=== PATIENT | male | born 1980 | race Caucasian/White ===

== ENCOUNTER 2020-08-17 17:46 | Emergency (ER) | payer SELFPAY ==
[2020-08-17] VITALS (7 sets, daily range): BP systolic 116–179; BP diastolic 28–128; PULSE 85–140; RESP 16–26; TEMP 36.9; O2SAT 93–100; BMI 22.7
[2020-08-17] MEDS: LORazepam 2 MG/ML VIAL IM (18:10)
[2020-08-17] MEDS: Haloperidol Lactate 5 MG/ML VIAL IM (18:10)
--- NOTE | 2020-08-17 18:28 | PC.NURSE ---
See paper documentation for restraint documentation.
--- NOTE | 2020-08-17 18:49 | ED.PSYCH ---
HPI - Psych General Chief Complaint: Psychiatric Symptoms <Mariya Mansfield NP - Last Filed: 08/18/20 02:02> Stated Complaint: SI <Mariya Mansfield NP - Last Filed: 08/18/20 02:02> Time Seen by Provider: 08/17/20 18:13 <Mariya Mansfield NP - Last Filed: 08/18/20 02:02> Source: patient and EMS <Mariya Mansfield NP - Last Filed: 08/18/20 02:02> Mode of arrival: EMS <Mariya Mansfield NP - Last Filed: 08/18/20 02:02> Limitations: altered mental status <Mariya Mansfield NP - Last Filed: 08/18/20 02:02> History of Present Illness HPI Narrative: 39-year-old male presents via EMS for suicidal ideation and alcohol intoxication. Patient is punching himself in the face, and requires immediate intervention upon arrival. Security called, assisted patient to hospital bed and was given 2 mg of Ativan and 5 mg of Haldol IM. Was placed in 4 point restraint for safety. Patient states that he does not want to live, wants to jump in front of a train, shoot himself in the face with a gun, or jump out in traffic on the highway. Patient would not disclose the reasons why he feels this way, and states that he drank lots of alcohol today. <Mariya Mansfield NP - Last Filed: 08/18/20 02:02> MD complaint: suicidal ideation and alcohol abuse <Mariya Mansfield NP - Last Filed: 08/18/20 02:02> Duration: constant <Mariya Mansfield NP - Last Filed: 08/18/20 02:02> History of same: Yes <Mariya Mansfield NP - Last Filed: 08/18/20 02:02> Relieving factors: none <Mariya Mansfield NP - Last Filed: 08/18/20 02:02> Exacerbating factors: alcohol <Mariya Mansfield NP - Last Filed: 08/18/20 02:02> Associated psychiatric symptoms: depression and suicidal ideation <Mariya Mansfield NP - Last Filed: 08/18/20 02:02> If self harm: self-inflicted trauma <Mariya Mansfield NP - Last Filed: 08/18/20 02:02> Related Data Allergies/Adverse Reactions: Allergies Allergy/AdvReac Type Severity Reaction Status Date / Time No Known Allergies Allergy Verified 08/17/20 18:21 <Mariya Mansfield NP - Last Filed: 08/18/20 02:02> Review of Systems Review of Systems: Yes Unobtainable due to mental status <Mariya Mansfield NP - Last Filed: 08/18/20 02:02> [facility], LAT[facility] Past Medical History Source: unable to obtain <Mariya Mansfield NP - Last Filed: 08/18/20 02:02> Social History Social History: Social History Alcohol intake: current Smoking Status: Unknown if ever smoked Use of substances other than those prescribed or required for medical reasons: No Advance Directives: No Advance Directives Information Provided: No <Mariya Mansfield NP - Last Filed: 08/18/20 02:02> Physical Exam Vital Signs: Vital Signs: Last Vital Signs Temp 98.2 F 08/18/20 07:42 Pulse 75 08/18/20 07:42 Resp 18 08/18/20 07:42 BP 145/72 H 08/18/20 07:42 Pulse Ox 96 08/18/20 07:42 Body Mass Index 22.7 <Mariya Mansfield NP - Last Filed: 08/18/20 02:02> Vital Signs: Last Vital Signs Temp 98.2 F 08/18/20 07:42 Pulse 75 08/18/20 07:42 Resp 18 08/18/20 07:42 BP 145/72 H 08/18/20 07:42 Pulse Ox 96 08/18/20 07:42 Body Mass Index 22.7 <Marizol Madison DO - Last Filed: 08/18/20 08:08> Appearance: Alert. Oriented X3. Severe distress. Eyes: Pupils equal, round and reactive to light. ENT: Pharynx normal. Neck: Normal inspection. Neck supple. CVS: Normal heart rate and rhythm. Pulses normal. Respiratory: No respiratory distress. Breath sounds normal. Abdomen: Soft and nontender. Skin: Skin warm and dry. Normal skin color. Normal skin turgor. Extremities: No lower extremity edema. Neuro: No motor deficit. No sensory deficit. <Mariya Mansfield NP - Last Filed: 08/18/20 02:02> Course Course Course Narrative: plan of care is to ensure patient's safety, once patient can be released from restraints physical exam will be completed. Patient is sleeping, arousable to touch and speech, even unlabored respirations, brisk capillary refill to all extremities. ETOH level is 316. [facility] consult pending for the morning. <Mariya Mansfield NP - Last Filed: 08/18/20 02:02> MDM - Psych Differential Diagnosis Differential diagnosis: Likely acute psychosis, suicidal ideation, bipolar disorder, depression, drug-induced psychotic disorder, acute anxiety, post-traumatic stress disorder, substance abuse, alcohol intoxication and mood disorder <Mariya Mansfield NP - Last Filed: 08/18/20 02:02> Restraints Face to Face Assessment: Face to Face Assessment: Current Situation: After assessment of the patient, a review of the pertinent medical record and a discussion with nursing staff, I feel the patient requires a restrain intervention. Reaction To: [] Medical Condition: [] Behavioral State: [] Continued Need: [] <Mariya Mansfield NP - Last Filed: 08/18/20 02:02> Medical Records Attestation: I reviewed the patient's medical records. <Mariya Mansfield NP - Last Filed: 08/18/20 02:02> Lab Data Attestation: I reviewed the patient's lab results. <Mariya Mansfield NP - Last Filed: 08/18/20 02:02> Labs: Lab Results 08/17/20 08/17/20 08/18/20 Range/Units 21:40 21:40 07:08 Salicylates < 5.0 L (15-30) mg/dL Urine Opiates Screen Not Detected (Not Detect) Acetaminophen < 1 (<30) mcg/mL Ur Barbiturates Screen Not Detected (Not Detect) Ur Phencyclidine Scrn Not Detected (Not Detect) Ur Amphetamines Screen Not Detected (Not Detect) U Benzodiazepines Scrn Not Detected (Not Detect) Urine Cocaine Screen Not Detected (Not Detect) U Marijuana (THC) Screen POSITIVE H (Not Detect) Ethyl Alcohol 316 H* mg/dL <Mariya Mansfield NP - Last Filed: 08/18/20 02:02> Lab Results 08/17/20 08/17/20 08/18/20 Range/Units 21:40 21:40 07:08 Salicylates < 5.0 L (15-30) mg/dL Urine Opiates Screen Not Detected (Not Detect) Acetaminophen < 1 (<30) mcg/mL Ur Barbiturates Screen Not Detected (Not Detect) Ur Phencyclidine Scrn Not Detected (Not Detect) Ur Amphetamines Screen Not Detected (Not Detect) U Benzodiazepines Scrn Not Detected (Not Detect) Urine Cocaine Screen Not Detected (Not Detect) U Marijuana (THC) Screen POSITIVE H (Not Detect) Ethyl Alcohol 316 H* mg/dL <Marizol Madison DO - Last Filed: 08/18/20 08:08> Discharge Plan Discharge Clinical Impression: Depression Qualifiers: Depression Type: major depressive disorder Major depression recurrence: recurrent Active/Remission status: currently active Major depression episode severity: severe Psychotic features: with psychotic features Qualified Code(s): F33.3 - Major depressive disorder, recurrent, severe with psychotic symptoms <Mariya Mansfield NP - Last Filed: 08/18/20 02:02>
[2020-08-17 22:12] LABS: Ethanol 316 mg/dL
[2020-08-17 22:16] LABS: Salicylate < 5.0 mg/dL (15-30)
[2020-08-17 23:41] LABS: Acetaminophen LAB < 1 mcg/mL (<30)
[2020-08-18] VITALS (8 sets, daily range): BP systolic 116–145; BP diastolic 72–101; PULSE 65–100; RESP 18–22; TEMP 36.6–37.1; O2SAT 94–96
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
--- NOTE | 2020-08-18 01:22 | PC.NURSE ---
[facility] HAS BEEN FAXED & CALLED.
[2020-08-18 07:49] LABS: Amphetamine Screen Urine Not Detected (Not Detect); Barbiturates, Urine Not Detected (Not Detect); Benzodiazepines Screen Urine Not Detected (Not Detect); Cannabinoid Screen Urine POSITIVE (Not Detect); Cocaine Screen Urine Not Detected (Not Detect); Opiate Screen Urine Not Detected (Not Detect); Phencyclidine Screen Urine Not Detected (Not Detect)
--- NOTE | 2020-08-18 09:25 | PC.NURSE ---
RESTING ON STRETCHER EQUAL UNLABORED BREATHING
--- NOTE | 2020-08-18 10:28 | PC.NURSE ---
PT MOVED TO [facility] 2 REPORT GIVEN TO YANIRA CARRENO
--- NOTE | 2020-08-18 10:38 | PC.NURSE ---
pt transferred from main ED- pt ambulatory, affect depressed, cooperatives w/ transfer. Pt reports continued depression and anxiety- denies si but admits to feeling overwhelmed. states he uses etoh daily, pt reporting initial symptoms of withdrawal..
--- NOTE | 2020-08-18 11:20 | PC.NURSE ---
n called to confirm receipt of fax. per n, a clinician will be in in early afternoon
[2020-08-18] MEDS: LORazepam 1 MG TABLET 2 MG PO ×2 (11:41→13:53)
--- NOTE | 2020-08-18 11:51 | PC.NURSE ---
pt resting, very tremulous- medicated w/ ativan as ordered.
--- NOTE | 2020-08-18 15:32 | PC.NURSE ---
Pt states he is ready for discharge, states he can be safe. Transport arranged by care team- pt will be returning home, he lives w/ with his fathjer.
--- NOTE | 2020-08-18 16:10 | PC.NURSE ---
[employer] called, pt given voucher. pt alert, gretel campbell, states he is safe for discharge. pt aware that cab will be transporting him back to [facility] where he lives. no concerns reported..
== END 2020-08-18 16:18 | disposition home or self-care (01) ==
PROVIDERS: Nurse Practitioner Family; Emergency Provider Emergency Medicine
DX: F33.3 Major depressive disorder, recurrent, severe with psychotic symptoms (principal); R45.851 Suicidal ideations; F10.129 Alcohol abuse with intoxication, unspecified; Y90.8 Blood alcohol level of 240 mg/100 ml or more
CPT/HCPCS: 80307; 80320; 99285; G0480; J2060

== ENCOUNTER 2020-09-08 11:20 | Inpatient (IN) | payer MEDICAID, SELFPAY ==
[2020-09-08 11:25] VITALS: BP 118/71; BP 129/67; PULSE 87; PULSE 89; RESP 18; TEMP 36.7; O2SAT 99; BMI 20.7
--- NOTE | 2020-09-08 11:28 | ED.CHESTPAIN ---
HPI - Chest Pain General Chief Complaint: Chest Pain <Fer Rosenbaum MD - Last Filed: 09/08/20 14:24> Stated Complaint: chest pain <Fer Rosenbaum MD - Last Filed: 09/08/20 14:24> Time Seen by Provider: 09/08/20 11:24 <Fer Rosenbaum MD - Last Filed: 09/08/20 14:24> Source: patient <Fer Rosenbaum MD - Last Filed: 09/08/20 14:24> Mode of arrival: EMS <Fer Rosenbaum MD - Last Filed: 09/08/20 14:24> Limitations: no limitations <Fer Rosenbaum MD - Last Filed: 09/08/20 14:24> History of Present Illness HPI narrative: Patient with chest pain, drinks everyday. Lightheaded, shortness of breath, did not pass out. Patient had prior workup and told he has acid reflux <Fer Rosenbaum MD - Last Filed: 09/08/20 14:24> MD complaint: chest pain <Fer Rosenbaum MD - Last Filed: 09/08/20 14:24> Onset (ago): hour(s) (3) <Fer Rosenbaum MD - Last Filed: 09/08/20 14:24> Timing of current episode: constant <Fer Rosenbaum MD - Last Filed: 09/08/20 14:24> Prior episodes: Yes <Fer Rosenbaum MD - Last Filed: 09/08/20 14:24> Onset: during rest <Fer Rosenbaum MD - Last Filed: 09/08/20 14:24> Pain location: left chest <Fer Rosenbaum MD - Last Filed: 09/08/20 14:24> Pain radiation: none <Fer Rosenbaum MD - Last Filed: 09/08/20 14:24> Severity: moderate <Fer Rosenbaum MD - Last Filed: 09/08/20 14:24> Quality: sharp <Fer Rosenbaum MD - Last Filed: 09/08/20 14:24> Relieving factors: nothing <Fer Rosenbaum MD - Last Filed: 09/08/20 14:24> Related Data Home Medications: Home Medications Medication Instructions Recorded Confirmed No Known Home Meds 09/08/20 09/08/20 <Fer Rosenbaum MD - Last Filed: 09/08/20 14:24> Allergies/Adverse Reactions: Allergies Allergy/AdvReac Type Severity Reaction Status Date / Time No Known Allergies Allergy Verified 08/17/20 18:21 <Fer Rosenbaum MD - Last Filed: 09/08/20 14:24> Review of Systems Constitutional: Constitutional: Reports no additional constitutional complaints <Fer Rosenbaum MD - Last Filed: 09/08/20 14:24> Eyes: Eyes: Reports no additional eye complaints <Fer Rosenbaum MD - Last Filed: 09/08/20 14:24> ENT: Denies dizziness <Fer Rosenbaum MD - Last Filed: 09/08/20 14:24> Cardiovascular: Cardiovascular: Reports no additional cardiovascular complaints <Fer Rosenbaum MD - Last Filed: 09/08/20 14:24> Respiratory: Respiratory: Reports as per HPI <Fer Rosenbaum MD - Last Filed: 09/08/20 14:24> Gastrointestinal: Gastrointestinal: Reports no additional gastrointestinal complaints <Fer Rosenbaum MD - Last Filed: 09/08/20 14:24> Musculoskeletal: Musculoskeletal: Reports no additional musculoskeletal complaints <Fer Rosenbaum MD - Last Filed: 09/08/20 14:24> Integumentary/Breasts: Skin/Breast: Denies rash <Fer Rosenbaum MD - Last Filed: 09/08/20 14:24> Neurologic: Reports system reviewed and no additional complaints, except as documented, Denies dizziness and Denies Sensory deficit (Neuro) <Fer Rosenbaum MD - Last Filed: 09/08/20 14:24> Psychiatric: Psychiatric: Denies anxiety <Fer Rosenbaum MD - Last Filed: 09/08/20 14:24> PMFSH Past Medical History Medical History: Medical History ETOH abuse GERD (gastroesophageal reflux disease) Neuropathy <Fer Rosenbaum MD - Last Filed: 09/08/20 14:24> Social History Social History: Social History Alcohol intake: current Smoking Status: Unknown if ever smoked Advance Directives: No Advance Directives Information Provided: No <Fer Rosenbaum MD - Last Filed: 09/08/20 14:24> Physical Exam Vital Signs: Vital Signs: Last Vital Signs Temp 98.1 F 09/08/20 11:25 Pulse 97 09/08/20 13:20 Resp 18 09/08/20 13:20 BP 116/70 09/08/20 13:20 Pulse Ox 95 09/08/20 13:20 Body Mass Index 20.7 <Fer Rosenbaum MD - Last Filed: 09/08/20 14:24> Vital Signs: Last Vital Signs Temp 98.1 F 09/08/20 11:25 Pulse 97 09/08/20 13:20 Resp 18 09/08/20 13:20 BP 116/70 09/08/20 13:20 Pulse Ox 95 09/08/20 13:20 Body Mass Index 20.7 <Savage Carvajal MD - Last Filed: 09/09/20 00:33> Const: Other: very thin male looking older than stated age <Fer Rosenbaum MD - Last Filed: 09/08/20 14:24> Nutritional Appearance: thin <Fer Rosenbaum MD - Last Filed: 09/08/20 14:24> Orientation/consciousness: oriented to person and patient oriented x3 <Fer Rosenbaum MD - Last Filed: 09/08/20 14:24> Limitations: no limitations <Fer Rosenbaum MD - Last Filed: 09/08/20 14:24> HENMT: Head: Yes normal to inspection <Fer Rosenbaum MD - Last Filed: 09/08/20 14:24> Ears: external ears normal <Fer Rosenbaum MD - Last Filed: 09/08/20 14:24> General nose exam: Normal external nose present <Fer Rosenbaum MD - Last Filed: 09/08/20 14:24> Mouth: Normal oral and palatal mucosa present and oropharynx normal <Fer Rosenbaum MD - Last Filed: 09/08/20 14:24> Throat: Yes posterior oropharynx normal <Fer Rosenbaum MD - Last Filed: 09/08/20 14:24> Eyes: General: appearance normal, both eyes and all related structures <Fer Rosenbaum MD - Last Filed: 09/08/20 14:24> Neck: Other: supple <Fer Rosenbaum MD - Last Filed: 09/08/20 14:24> Neck: Yes normal visual inspection <Fer Rosenbaum MD - Last Filed: 09/08/20 14:24> Chest: Chest palpation & inspection: normal inspection of the chest <Fer Rosenbaum MD - Last Filed: 09/08/20 14:24> Resp: Auscultation: clear to auscultation bilaterally <Fer Rosenbaum MD - Last Filed: 09/08/20 14:24> Cardio: Jugular venous distension: no JVD <Fer Rosenbaum MD - Last Filed: 09/08/20 14:24> Rate: regular rate <Fer Rosenbaum MD - Last Filed: 09/08/20 14:24> Rhythm: regular rhythm <Fer Rosenbaum MD - Last Filed: 09/08/20 14:24> Heart sounds: S1 normal heart sound present and S2 normal heart sound present <Fer Rosenbaum MD - Last Filed: 09/08/20 14:24> GI: Inspection: Yes normal to inspection <Fer Rosenbaum MD - Last Filed: 09/08/20 14:24> Palpation (GI): Soft to palpation, nontender and No hepatosplenomegaly present <Fer Rosenbaum MD - Last Filed: 09/08/20 14:24> Auscultation: normal bowel sounds <Fer Rosenbaum MD - Last Filed: 09/08/20 14:24> : General: Yes no CVA tenderness <Fer Rosenbaum MD - Last Filed: 09/08/20 14:24> Back/Spine/Pelvis: Back: no CVA tenderness <Fer Rosenbaum MD - Last Filed: 09/08/20 14:24> Skin: General skin exam: no rashes or lesions noted <Fer Rosenbaum MD - Last Filed: 09/08/20 14:24> Neuro: General: oriented to person and patient oriented x3 <Fer Rosenbaum MD - Last Filed: 09/08/20 14:24> Cranial nerves: Yes CN's II-XII intact bilaterally <Fer Rosenbaum MD - Last Filed: 09/08/20 14:24> Motor exam (neuro): 5/5 motor strength present throughout <Fer Rosenbaum MD - Last Filed: 09/08/20 14:24> Sensory Exam: No Sensory deficit (Neuro) <Fer Rosenbaum MD - Last Filed: 09/08/20 14:24> Extrem: General: Yes normal to inspection <Fer Rosenbaum MD - Last Filed: 09/08/20 14:24> Psych: Appearance: grossly normal <Fer Rosenbaum MD - Last Filed: 09/08/20 14:24> Course Course Course Narrative: patient states that he is suicidal <Fer Rosenbaum MD - Last Filed: 09/08/20 14:24> patient seen by crisis will be admitted to for depression <Savage Carvajal MD - Last Filed: 09/09/20 00:33> Reevaluation(s) Reevaluation #1: patient now agitated and starting to try and leave, will sedate <Fer Rosenbaum MD - Last Filed: 09/08/20 14:24> Reevaluation #2: medically cleared no evidence of cardiac event <Fer Rosenbaum MD - Last Filed: 09/08/20 14:24> MDM - Chest Pain Lab Data Result diagrams: : 09/08/20 11:45 09/08/20 11:45 <Fer Rosenbaum MD - Last Filed: 09/08/20 14:24> Labs: Lab Results 09/08/20 09/08/20 09/08/20 Range/Units 11:45 11:45 11:45 WBC 7.8 (4.8-10.8) X10*3/uL RBC 3.31 L (4.60-5.80) X10*6/uL Hgb 12.7 L (14.0-18.0) g/dl Hct 36.8 L (42-52) % MCV 111.2 H (80-98) fL MCH 38.4 H (27.0-33.0) pg MCHC 34.5 (31.0-36.0) g/dl RDW 12.4 (11.0-16.0) % Plt Count 56 L (160-400) X10*3/uL MPV 11.1 (9.4-12.4) fL Immature Gran % (Auto) 0.4 (0.0-0.4) % Neut % (Auto) 58.6 (45-73) % Lymph % (Auto) 29.8 (20-40) % [place] % (Auto) 10.2 (2-11) % Eos % (Auto) 0.4 (0-4) % Baso % (Auto) 0.6 (0-2) % Lymph # (Auto) 2.3 (1.2-4.9) X10*3/uL [place] # (Auto) 0.8 (0.1-1.2) X10*3/uL Eos # (Auto) 0.0 (0.0-0.4) X10*3/uL Baso # (Auto) 0.1 (0.0-0.2) X10*3/uL Abs Immat Gran (auto) 0.03 (0.00-0.03) X10*3/uL Absolute Neuts (auto) 4.6 (2.0-8.3) X10*3/uL Absolute Nucleated RBC 0.000 (0.0-0.012) X10*3/uL Nucleated RBC % (auto) 0.0 (0.0-0.2) /100WBC Smear Tech's Comments Not Reportable Sodium 140 (135-145) mmol/L Potassium 3.9 (3.3-5.1) mmol/l Chloride 99 (96-108) mmol/L Carbon Dioxide 21 L (22-29) mmol/L Anion Gap 24 H (12-20) BUN 11 (9-16) mg/dL Creatinine 0.81 (0.5-1.4) mg/dL Estim Creat Clear Calc 111.6 Estimated GFR > 60 Random Glucose 75 (60-115) mg/dL Calcium 9.1 (8.4-10.2) mg/dL Troponin I High Sens < 3.5 (<3.5-35.0) ng/L Urine Opiates Screen Ur Barbiturates Screen Ur Phencyclidine Scrn Ur Amphetamines Screen U Benzodiazepines Scrn Urine Cocaine Screen U Marijuana (THC) Screen COVID-19 (MUSHTAQ) (Negative) COVID-19 Clin Com 09/08/20 09/08/20 09/08/20 Range/Units 20:02 20:03 22:15 WBC (4.8-10.8) X10*3/uL RBC (4.60-5.80) X10*6/uL Hgb (14.0-18.0) g/dl Hct (42-52) % MCV (80-98) fL MCH (27.0-33.0) pg MCHC (31.0-36.0) g/dl RDW (11.0-16.0) % Plt Count (160-400) X10*3/uL MPV (9.4-12.4) fL Immature Gran % (Auto) (0.0-0.4) % Neut % (Auto) (45-73) % Lymph % (Auto) (20-40) % [place] % (Auto) (2-11) % Eos % (Auto) (0-4) % Baso % (Auto) (0-2) % Lymph # (Auto) (1.2-4.9) X10*3/uL [place] # (Auto) (0.1-1.2) X10*3/uL Eos # (Auto) (0.0-0.4) X10*3/uL Baso # (Auto) (0.0-0.2) X10*3/uL Abs Immat Gran (auto) (0.00-0.03) X10*3/uL Absolute Neuts (auto) (2.0-8.3) X10*3/uL Absolute Nucleated RBC (0.0-0.012) X10*3/uL Nucleated RBC % (auto) (0.0-0.2) /100WBC Smear Tech's Comments Sodium (135-145) mmol/L Potassium (3.3-5.1) mmol/l Chloride (96-108) mmol/L Carbon Dioxide (22-29) mmol/L Anion Gap (12-20) BUN (9-16) mg/dL Creatinine (0.5-1.4) mg/dL Estim Creat Clear Calc Estimated GFR Random Glucose (60-115) mg/dL Calcium (8.4-10.2) mg/dL Troponin I High Sens (<3.5-35.0) ng/L Urine Opiates Screen Cancelled Not Detected Ur Barbiturates Screen Cancelled Not Detected Ur Phencyclidine Scrn Cancelled Not Detected Ur Amphetamines Screen Cancelled Not Detected U Benzodiazepines Scrn Cancelled Not Detected Urine Cocaine Screen Cancelled Not Detected U Marijuana (THC) Screen Cancelled POSITIVE H COVID-19 (MUSHTAQ) Negative (Negative) COVID-19 Clin Com See Note <Fer Rosenbaum MD - Last Filed: 09/08/20 14:24> Lab Results 09/08/20 09/08/20 09/08/20 Range/Units 11:45 11:45 11:45 WBC 7.8 (4.8-10.8) X10*3/uL RBC 3.31 L (4.60-5.80) X10*6/uL Hgb 12.7 L (14.0-18.0) g/dl Hct 36.8 L (42-52) % MCV 111.2 H (80-98) fL MCH 38.4 H (27.0-33.0) pg MCHC 34.5 (31.0-36.0) g/dl RDW 12.4 (11.0-16.0) % Plt Count 56 L (160-400) X10*3/uL MPV 11.1 (9.4-12.4) fL Immature Gran % (Auto) 0.4 (0.0-0.4) % Neut % (Auto) 58.6 (45-73) % Lymph % (Auto) 29.8 (20-40) % [place] % (Auto) 10.2 (2-11) % Eos % (Auto) 0.4 (0-4) % Baso % (Auto) 0.6 (0-2) % Lymph # (Auto) 2.3 (1.2-4.9) X10*3/uL [place] # (Auto) 0.8 (0.1-1.2) X10*3/uL Eos # (Auto) 0.0 (0.0-0.4) X10*3/uL Baso # (Auto) 0.1 (0.0-0.2) X10*3/uL Abs Immat Gran (auto) 0.03 (0.00-0.03) X10*3/uL Absolute Neuts (auto) 4.6 (2.0-8.3) X10*3/uL Absolute Nucleated RBC 0.000 (0.0-0.012) X10*3/uL Nucleated RBC % (auto) 0.0 (0.0-0.2) /100WBC Smear Tech's Comments Not Reportable Sodium 140 (135-145) mmol/L Potassium 3.9 (3.3-5.1) mmol/l Chloride 99 (96-108) mmol/L Carbon Dioxide 21 L (22-29) mmol/L Anion Gap 24 H (12-20) BUN 11 (9-16) mg/dL Creatinine 0.81 (0.5-1.4) mg/dL Estim Creat Clear Calc 111.6 Estimated GFR > 60 Random Glucose 75 (60-115) mg/dL Calcium 9.1 (8.4-10.2) mg/dL Troponin I High Sens < 3.5 (<3.5-35.0) ng/L Urine Opiates Screen Ur Barbiturates Screen Ur Phencyclidine Scrn Ur Amphetamines Screen U Benzodiazepines Scrn Urine Cocaine Screen U Marijuana (THC) Screen COVID-19 (MUSHTAQ) (Negative) COVID-19 Clin Com 09/08/20 09/08/20 09/08/20 Range/Units 20:02 20:03 22:15 WBC (4.8-10.8) X10*3/uL RBC (4.60-5.80) X10*6/uL Hgb (14.0-18.0) g/dl Hct (42-52) % MCV (80-98) fL MCH (27.0-33.0) pg MCHC (31.0-36.0) g/dl RDW (11.0-16.0) % Plt Count (160-400) X10*3/uL MPV (9.4-12.4) fL Immature Gran % (Auto) (0.0-0.4) % Neut % (Auto) (45-73) % Lymph % (Auto) (20-40) % [place] % (Auto) (2-11) % Eos % (Auto) (0-4) % Baso % (Auto) (0-2) % Lymph # (Auto) (1.2-4.9) X10*3/uL [place] # (Auto) (0.1-1.2) X10*3/uL Eos # (Auto) (0.0-0.4) X10*3/uL Baso # (Auto) (0.0-0.2) X10*3/uL Abs Immat Gran (auto) (0.00-0.03) X10*3/uL Absolute Neuts (auto) (2.0-8.3) X10*3/uL Absolute Nucleated RBC (0.0-0.012) X10*3/uL Nucleated RBC % (auto) (0.0-0.2) /100WBC Smear Tech's Comments Sodium (135-145) mmol/L Potassium (3.3-5.1) mmol/l Chloride (96-108) mmol/L Carbon Dioxide (22-29) mmol/L Anion Gap (12-20) BUN (9-16) mg/dL Creatinine (0.5-1.4) mg/dL Estim Creat Clear Calc Estimated GFR Random Glucose (60-115) mg/dL Calcium (8.4-10.2) mg/dL Troponin I High Sens (<3.5-35.0) ng/L Urine Opiates Screen Cancelled Not Detected Ur Barbiturates Screen Cancelled Not Detected Ur Phencyclidine Scrn Cancelled Not Detected Ur Amphetamines Screen Cancelled Not Detected U Benzodiazepines Scrn Cancelled Not Detected Urine Cocaine Screen Cancelled Not Detected U Marijuana (THC) Screen Cancelled POSITIVE H COVID-19 (MUSHTAQ) Negative (Negative) COVID-19 Clin Com See Note <Savage Carvajal MD - Last Filed: 09/09/20 00:33> Discharge Plan Discharge Clinical Impression: Depression Qualifiers: Depression Type: major depressive disorder Major depression recurrence: recurrent Active/Remission status: currently active Major depression episode severity: moderate Qualified Code(s): F33.1 - Major depressive disorder, recurrent, moderate <Fer Rosenbaum MD - Last Filed: 09/08/20 14:24> Patient Disposition: Admitted As Inpatient <Fer Rosenbaum MD - Last Filed: 09/08/20 14:24>
--- NOTE | 2020-09-08 11:32 | ECG_ITS ---
Test Reason : CHEST TIGHTNESS Blood Pressure : / mmHG Vent. Rate : 079 BPM Atrial Rate : 079 BPM P-R Int : 126 ms QRS Dur : 090 ms QT Int : 406 ms P-R-T Axes : 066 084 056 degrees QTc Int : 465 ms Normal sinus rhythm Normal ECG No previous ECGs available Referred By: Fer Rosenbaum Electronically Signed By:DIAMANTE BUCKNER MD
--- NOTE | 2020-09-08 11:36 | XR_ITS ---
EXAMINATION: XR CHEST CLINICAL INFORMATION: Chest pain. COMPARISON: None TECHNIQUE: Frontal view of the chest was obtained. FINDINGS: No significant abnormality is noted involving the heart, lungs, mediastinum, bony thorax or soft tissues. XR/XR chest 1V IMPRESSION: Unremarkable chest exam.
[2020-09-08] MEDS: Lidocaine HCl Viscous 2 % 15 ML SOLUTION MUCOUS MEM (11:49)
[2020-09-08] MEDS: Magnesium Hydrox/Alum Hydrox 30 ML ORAL.SUSP PO (11:49)
[2020-09-08] MEDS: Ketorolac Tromethamine 30 MG/ML VIAL IVPUSH (11:50)
[2020-09-08] MEDS: PHENobarb/Hyoscy/Atropine/Scop 10 ML ELIXIR PO (11:50)
[2020-09-08 11:56] LABS: Eosinophils Percent Auto 0.4 % (0-4); Imm Gran Abs Auto 0.03 X10*3/uL (0.00-0.03); Imm Gran Pct Auto 0.4 % (0.0-0.4); MANUAL DIFF FLAG SCAN; Neutrophils Percent Auto 58.6 % (45-73); PLT CLUMP 1; Red Cell Distribution Width 12.4 % (11.0-16.0); SCAN SMEAR FLAG 1
[2020-09-08 11:58] LABS: Basophils Absolute Auto 0.1 X10*3/uL (0.0-0.2); Basophils Percent Auto 0.6 % (0-2); Hematocrit 36.8 % (42-52); Hemoglobin 12.7 g/dl (14.0-18.0); Lymphocytes Absolute Auto 2.3 X10*3/uL (1.2-4.9); Lymphocytes Percent Auto 29.8 % (20-40); Mean Corpuscular HGB Conc 34.5 g/dl (31.0-36.0); Mean Corpuscular Hemoglobin 38.4 pg (27.0-33.0); Mean Platelet Volume 11.1 fL (9.4-12.4); Monocytes Absolute Auto 0.8 X10*3/uL (0.1-1.2); Monocytes Percent Auto 10.2 % (2-11); Neutrophils Absolute Auto 4.6 X10*3/uL (2.0-8.3); Red Blood Count 3.31 X10*6/uL (4.60-5.80); White Blood Count 7.8 X10*3/uL (4.8-10.8)
[2020-09-08 12:01] LABS: Mean Corpuscular Volume 111.2 fL (80-98); Platelet Count 56 X10*3/uL (160-400)
[2020-09-08 12:28] LABS: Troponin-I High Sensitivity < 3.5 ng/L (<3.5-35.0)
[2020-09-08 12:32] LABS: Blood Urea Nitrogen 11 mg/dL (9-16); Calcium 9.1 mg/dL (8.4-10.2); Creatinine Clr Calc Pharmacy 111.6; Estimated Glomerular Filt Rate > 60; Glucose Random 75 mg/dL (60-115)
[2020-09-08 12:40] LABS: Anion Gap 24 (12-20); Carbon Dioxide 21 mmol/L (22-29); Chloride 99 mmol/L (96-108); Potassium 3.9 mmol/l (3.3-5.1); Sodium 140 mmol/L (135-145)
[2020-09-08] MEDS: Haloperidol Lactate 5 MG/ML VIAL IVPUSH (12:43)
[2020-09-08] MEDS: LORazepam 2 MG/ML VIAL IVPUSH (12:43)
[2020-09-08 12:50] VITALS: RESP 18
[2020-09-08 13:05] VITALS: BP 130/82; PULSE 98; RESP 18; O2SAT 94
[2020-09-08 13:20] VITALS: BP 116/70; PULSE 97; RESP 18; O2SAT 95
--- NOTE | 2020-09-08 18:42 | PC.NURSE ---
Pt moved from main ED to Pod due to SI and agitation. Cooperative with changeover. Asleep as current. Respirations even and unlabored.
--- NOTE | 2020-09-08 18:49 | PC.NURSE ---
NIKKI faxed and called
--- NOTE | 2020-09-08 19:34 | PC.NURSE ---
Patient in bed appears resting, no distress reported, [facility] called to confirm ETA/notified that clinician is on the way to assess the patient, will continue to monitor.
--- NOTE | 2020-09-08 20:21 | PC.NURSE ---
Patient with [facility] clinician in his room, seems engaged/participatory with assessment process, urine sample provided/sent to lab/pending results, will continue to monitor.
[2020-09-08 20:45] LABS: Amphetamine Screen Urine Not Detected (Not Detect); Barbiturates, Urine Not Detected (Not Detect); Benzodiazepines Screen Urine Not Detected (Not Detect); Cannabinoid Screen Urine POSITIVE (Not Detect); Cocaine Screen Urine Not Detected (Not Detect); Opiate Screen Urine Not Detected (Not Detect); Phencyclidine Screen Urine Not Detected (Not Detect)
--- NOTE | 2020-09-08 21:52 | PC.NURSE ---
Patient just assessed by [facility], disposition section 12 inpatient bed search, patient and provider made aware, mother called patient OK to have his information shared with mother, care team made aware of bed search, will continue to monitor the patient.
--- NOTE | 2020-09-08 22:32 | PC.NURSE ---
Patient swabbed for COVID/compliant/sample sent ot lab/pending result. will continue to monitor.
[2020-09-08 22:54] LABS: COVID-19 Test Negative (Negative); IDNOW Serial# 9DD0AD1C
--- NOTE | 2020-09-09 00:49 | PC.NURSE ---
Patient in bed appears sleeping, no distress observed/reported, patient is accepted to [facility], provider notified/transfer process in progress, will continue to monitor.
[2020-09-09 03:40] VITALS: BP 139/89; PULSE 99; TEMP 36.7
[2020-09-09] MEDS: LORazepam 1 MG TABLET PO ×4 (03:45→18:08)
[2020-09-09 04:15] VITALS: BMI 20.7
--- NOTE | 2020-09-09 04:33 | PC.NURSE ---
Pt is a single white Lao speaking male admitted as a CV admission to at 0330 on 09/09/20. He was admitted from the ED and was placed on 5 minute safety checks. Patient was sleepy on arrival to but also was noted to have some body tremors. Patient admitted he was having ETOH withdrawals and this advertising copywriter was able to give the patient Ativan 1 mg po at 0345 to relieve his symptoms. Patient was tired but able to sign a few legals and answer some questions. He denied much medical history but did say he has an alcohol intake of a pint of liquor every day, he also smokes marajuana. His medical history includes GERD and neuropathy. At this time he also has a recent injury to his left thumb which was hurt when he was cutting wood. The left thumb is purple under the nail. Patient denied any physical pain at this time. Dr. Chen was notified of admission. Patient denied any current SI, no AH, VH or HI. His plan for suicide prior to admission was to throw himself in front of a car. At this time patient feels safe and will alert staff if he has any thoughts to hurt himself. Patient had been agitated in the ED as well as prior to ED admission and had been punching himself in the head but does not have any feelings of self harm at this time. Patient was tired and requested to go to bed. His tremors have decreased; he is now in bed resting. Safety tool still needs to be completed.
[2020-09-09 10:11] VITALS: BP 135/88; O2SAT 88
--- NOTE | 2020-09-09 10:50 | P.HPPS_ITS ---
HPI Chief Complaint: SUICIDAL Sources of Information: patient interviewed, chart reviewed and crisis/core team assessment reviewed HPI Narrative: 39 yo WM moved back to [place] after living in [facility] 9-10 months ago s/p break up with jacy who someone else Presents with hx of etoh use Came to er co chest pain and then became agitated and reported suicidal thinking to throw self in traffic He reports that struggling with transition up to [place]. Past Psychiatric History: none Medical Evaluation Reviewed: Yes [facility] Medical History (Updated 09/09/20 @ 17:02 by Araceli Blair MD) ETOH abuse GERD (gastroesophageal reflux disease) Neuropathy Family History: living with mother , sometimes with father and sometimes at [facility] Social History: has a job in [employer] , recent move , break up with radha who someone else Substance History: Alcohol 1pint vodka Diagnostics Vital Signs (24Hr): Vital Signs - 24 hr 09/08/20 11:25 09/08/20 12:50 09/08/20 13:05 Temperature 98.1 F Pulse Rate 89 98 Respiratory Rate 18 18 18 Blood Pressure 118/71 130/82 Pulse Oximetry 99 94 09/08/20 13:20 09/09/20 03:40 Temperature 98.1 F Pulse Rate 97 99 Respiratory Rate 18 Blood Pressure 116/70 139/89 Pulse Oximetry 95 Body Mass Index 20.7 Labs Results: 09/08/20 11:45 09/08/20 11:45 Labs: Laboratory Results - last 48 hr 09/08/20 09/08/20 09/08/20 11:45 11:45 11:45 WBC 7.8 RBC 3.31 L Hgb 12.7 L Hct 36.8 L MCV 111.2 H MCH 38.4 H MCHC 34.5 RDW 12.4 Plt Count 56 L MPV 11.1 Immature Gran % (Auto) 0.4 Neut % (Auto) 58.6 Lymph % (Auto) 29.8 [place] % (Auto) 10.2 Eos % (Auto) 0.4 Baso % (Auto) 0.6 Lymph # (Auto) 2.3 [place] # (Auto) 0.8 Eos # (Auto) 0.0 Baso # (Auto) 0.1 Abs Immat Gran (auto) 0.03 Absolute Neuts (auto) 4.6 Absolute Nucleated RBC 0.000 Nucleated RBC % (auto) 0.0 Smear Tech's Comments Not Reportable Sodium 140 Potassium 3.9 Chloride 99 Carbon Dioxide 21 L Anion Gap 24 H BUN 11 Creatinine 0.81 Estim Creat Clear Calc 111.6 Estimated GFR > 60 Random Glucose 75 Calcium 9.1 Troponin I High Sens < 3.5 Urine Opiates Screen Ur Barbiturates Screen Ur Phencyclidine Scrn Ur Amphetamines Screen U Benzodiazepines Scrn Urine Cocaine Screen U Marijuana (THC) Screen COVID-19 (MUSHTAQ) COVID-19 Clin Com 09/08/20 09/08/20 09/08/20 20:02 20:03 22:15 WBC RBC Hgb Hct MCV MCH MCHC RDW Plt Count MPV Immature Gran % (Auto) Neut % (Auto) Lymph % (Auto) [place] % (Auto) Eos % (Auto) Baso % (Auto) Lymph # (Auto) [place] # (Auto) Eos # (Auto) Baso # (Auto) Abs Immat Gran (auto) Absolute Neuts (auto) Absolute Nucleated RBC Nucleated RBC % (auto) Smear Tech's Comments Sodium Potassium Chloride Carbon Dioxide Anion Gap BUN Creatinine Estim Creat Clear Calc Estimated GFR Random Glucose Calcium Troponin I High Sens Urine Opiates Screen Cancelled Not Detected Ur Barbiturates Screen Cancelled Not Detected Ur Phencyclidine Scrn Cancelled Not Detected Ur Amphetamines Screen Cancelled Not Detected U Benzodiazepines Scrn Cancelled Not Detected Urine Cocaine Screen Cancelled Not Detected U Marijuana (THC) Screen Cancelled POSITIVE H COVID-19 (MUSHTAQ) Negative COVID-19 Clin Com See Note low platlets Imaging Radiology Impressions: ITS Impressions Chest X-Ray 09/08/20 11:36 IMPRESSION: Unremarkable chest exam. Meds/Allergies Meds Home Medications Acetaminophen (Acetaminophen 325 Mg Tablet) 650 mg PO Q6H PRN PRN Reason: Headache/Pain Mild Scale (1-3) Al Hydroxide/Mg Hydroxide (Magnesium Hydrox/Alum Hydrox 30 Ml Oral.Susp) 30 ml PO Q6H PRN PRN Reason: Heartburn/Nausea Hydroxyzine HCl (Hydroxyzine Hcl 25 Mg Tablet) 25 mg PO BEDTIME PRN PRN Reason: Anxiety Lorazepam (Lorazepam 1 Mg Tablet) 1 mg PO RQ4H PRN PRN Reason: Alcohol Withdrawal Last Admin: 09/09/20 15:03 Dose: 1 mg Documented by: Magnesium Hydroxide (Milk Of Magnesia 30 Ml Oral.Susp) 30 ml PO DAILY PRN PRN Reason: Constipation Nicotine (Nicotine 21 Mg Patch.Td24) 21 mg TRANSDERMA DAILY EILEEN Nicotine Polacrilex (Nicotine Polacrilex 2 Mg Lozenge) 2 mg BUCCAL Q1H PRN PRN Reason: Nicotine Cravings Trazodone HCl (Trazodone Hcl 50 Mg Tablet) 50 mg PO BEDTIME PRN PRN Reason: Insomnia Allergies Allergies Allergy/AdvReac Type Severity Reaction Status Date / Time No Known Allergies Allergy Verified 08/17/20 18:21 Mental Status Exam Mental Status Exam Narrative: disheveled dressed in shawn- tremorous ok eye contact, flat affect Patient Appearance: Fatigued, Disheveled and Unkempt Patient Orientation: Person, Place, Time and Situation Level of Consciousness: Awake and Alert Patient Behavior: Cooperative and Passive Mood Description: Calm and Flat Affect Description: Calm and Blunted Patient Cognition Impaired: No Ability to Follow Directions: Good Speech Pattern: Clear Memory Description: Intact Hallucinations: None Delusions: Not Present Thought Process: Intact Thought Content: positive for Intact and positive for Goal Oriented Depressive Symptoms: Difficulty Sleeping and Thoughts of /Suicide Judgement: Fair Assessment & Plan Assessment & Plan (1) Depression: Status: Acute Qualifiers: Active/Remission status: currently active Depression Type: major depressive disorder Major depression episode severity: moderate Major depression recurrence: recurrent Qualified Code(s): F33.1 - Major depressive disorder, recurrent, moderate Code(s): F32.9 - Major depressive disorder, single episode, unspecified Assessment and Plan: mileu therapy - (2) ETOH abuse: Status: Acute Code(s): F10.10 - Alcohol abuse, uncomplicated Assessment and Plan: lorazepam prn monitor vs (3) Platelets decreased: Status: Acute Code(s): D69.6 - Thrombocytopenia, unspecified Assessment and Plan: recheck Friday Patient educated on: medication risk/benefits, substance abuse and medical condition Informed Consent: understands Reason for continued inpatient stay Substantial Risk for: harm to self and med/psych decompensation
[2020-09-09 15:05] VITALS: BP 142/72; PULSE 108
[2020-09-09 16:00] VITALS: BP 128/67; PULSE 66; RESP 18; TEMP 37.1
[2020-09-09] MEDS: Nicotine 21 MG PATCH.TD24 TRANSDERMA (17:14)
[2020-09-09 17:37] VITALS: BP 157/88; PULSE 74; TEMP 37
[2020-09-09 20:00] VITALS: BP 121/81; PULSE 87; TEMP 37.1
[2020-09-09] MEDS: LORazepam 1 MG TABLET 2 MG PO (21:51)
[2020-09-10 06:00] VITALS: BP 134/77; PULSE 75; TEMP 36.8
[2020-09-10] MEDS: LORazepam 1 MG TABLET 2 MG PO ×4 (08:58→21:05)
[2020-09-10 12:00] VITALS: BP 143/77; PULSE 120
--- NOTE | 2020-09-10 13:00 | HO.PSYCHPN ---
Subjective Subjective Date of Service: 09/10/20 Reason For Visit: SUICIDAL Subjective Notes: Conditional Voluntary Interim History: ongoing tremor, trouble with memory- can't call his mom /dad due to not having his phone charged- wants to stop drinking denies current si Medication Compliance: Yes Side effects from medications: No Attending Groups: Yes Review of Systems Acute medical concerns: Yes alcohol withdrawl Review of Systems: elevated bp/pulse, undergoing withdrawl change prn ativan from 1mg to 2mg Review of Systems Review of Systems Yes all other systems are reviewed and are negative Denies dizziness Reports system reviewed and no additional complaints, except as documented, Denies dizziness and Denies Sensory deficit (Neuro) Mental Status Exam Mental Status Exam Narrative: disheveled dressed in clothing- tremorous ok eye contact, flat affect Patient Appearance: Fatigued and Unkempt Patient Orientation: Person, Place, Time and Situation Level of Consciousness: Awake and Alert Patient Behavior: Cooperative and Passive Mood Description: Calm and Flat Affect Description: Calm and Blunted Patient Cognition Impaired: No Ability to Follow Directions: Good Speech Pattern: Clear Memory Description: Intact Hallucinations: None Delusions: Not Present Thought Process: Intact Thought Content: positive for Intact and positive for Goal Oriented Depressive Symptoms: Difficulty Sleeping and Thoughts of /Suicide Judgement: Fair Diagnostics Vital Signs (24Hr): Vital Signs - 24 hr 09/09/20 15:05 09/09/20 16:00 09/09/20 17:37 Temperature 98.8 F 98.6 F Pulse Rate 108 H 66 74 Respiratory Rate 18 Blood Pressure 142/72 H 128/67 157/88 H 09/09/20 20:00 09/10/20 06:00 Temperature 98.8 F 98.3 F Pulse Rate 87 75 Respiratory Rate Blood Pressure 121/81 134/77 Body Mass Index 20.7 Labs Results: 09/08/20 11:45 09/08/20 11:45 Labs: Laboratory Results - last 48 hr 09/08/20 09/08/20 09/08/20 20:02 20:03 22:15 Urine Opiates Screen Cancelled Not Detected Ur Barbiturates Screen Cancelled Not Detected Ur Phencyclidine Scrn Cancelled Not Detected Ur Amphetamines Screen Cancelled Not Detected U Benzodiazepines Scrn Cancelled Not Detected Urine Cocaine Screen Cancelled Not Detected U Marijuana (THC) Screen Cancelled POSITIVE H COVID-19 (MUSHTAQ) Negative COVID-19 Clin Com See Note Imaging Radiology Impressions: ITS Impressions Chest X-Ray 09/08/20 11:36 IMPRESSION: Unremarkable chest exam. Medications Medications Current Medications Generic Name Dose Route Start Last Admin Trade Name Freq PRN Reason Stop Dose Admin Acetaminophen 650 mg 09/09/20 02:53 Acetaminophen 325 Mg Tablet PO Q6H PRN Headache/Pain Mild Scale (1-3) Al Hydroxide/Mg Hydroxide 30 ml 09/09/20 02:53 Magnesium Hydrox/Alum Hydrox 30 Ml Oral.Susp PO Q6H PRN Heartburn/Nausea Hydroxyzine HCl 25 mg 09/09/20 02:53 Hydroxyzine Hcl 25 Mg Tablet PO BEDTIME PRN Anxiety Lorazepam 2 mg 09/09/20 17:38 09/10/20 12:48 Lorazepam 1 Mg Tablet PO 2 mg RQ4H PRN Administration Alcohol Withdrawal Magnesium Hydroxide 30 ml 09/09/20 02:53 Milk Of Magnesia 30 Ml Oral.Susp PO DAILY PRN Constipation Nicotine 21 mg 09/10/20 09:00 09/09/20 17:14 Nicotine 21 Mg Patch.Td24 TRANSDERMA 21 mg DAILY EILEEN Administration Nicotine Polacrilex 2 mg 09/09/20 16:30 09/09/20 17:14 Nicotine Polacrilex 2 Mg Lozenge BUCCAL 2 mg Q1H PRN Administration Nicotine Cravings Trazodone HCl 50 mg 09/09/20 02:53 Trazodone Hcl 50 Mg Tablet PO BEDTIME PRN Insomnia Allergies Allergies Allergy/AdvReac Type Severity Reaction Status Date / Time No Known Allergies Allergy Verified 08/17/20 18:21 Assessment & Plan Assessment & Plan (1) Platelets decreased: Status: Acute Code(s): D69.6 - Thrombocytopenia, unspecified Assessment and Plan: recheck cbc Friday (2) ETOH abuse: Status: Acute Code(s): F10.10 - Alcohol abuse, uncomplicated Assessment and Plan: inc ativan to 2mg prn (3) Depression: Qualifiers: Active/Remission status: currently active Depression Type: major depressive disorder Major depression episode severity: moderate Major depression recurrence: recurrent Qualified Code(s): F33.1 - Major depressive disorder, recurrent, moderate Status: Acute Code(s): F32.9 - Major depressive disorder, single episode, unspecified Assessment and Plan: not interested in medication for depression , may be secondary to etoh use Greater than 50% of the session was spent on counseling and/or coordination of care
[2020-09-10 16:10] VITALS: PULSE 116; TEMP 36.3
[2020-09-10 19:47] VITALS: BP 133/84; PULSE 107; TEMP 36.3
--- NOTE | 2020-09-10 23:32 | PC.NURSE ---
Pt asked to receive his medications around 2229. This rewriter was giving medications to another patient. This patient did not want to wait to receive his medication and told this nurse that he was not taking his medications.
[2020-09-11] MEDS: LORazepam 1 MG TABLET 2 MG PO (00:38)
[2020-09-11] MEDS: traZODone HCL 50 MG TABLET PO (00:38)
[2020-09-11 00:55] VITALS: BP 135/66; PULSE 140; RESP 18; O2SAT 98
--- NOTE | 2024-07-15 11:48 | P.DS_ITS ---
DS: Providers Provider Date of Service: 09/09/20 Date of admission: admited for si with alcohol withdrawl Date of discharge: 09/11/20 Primary care physician: Unknown Physician Consults: 01/28/24 00:09 Consult to Care Team Stat Comment: Reason for consultation: SI Attending physician on discharge: Araceli Blair Discharging clinician: Araceli Blair DS: Diagnosis Discharge Diagnosis (1) Alcohol withdrawal syndrome with complication: Status: Acute DS: Medications Discharge Medications Home Medications: Home Medications ?Medication ?Instructions ?Recorded ?Confirmed albuterol sulfate 90 mcg/actuation 2 puff inhalation Q4-6H PRN 01/28/24 01/28/24 aerosol inhaler (Ventolin HFA) Shortness Of Breath Or Wheezing clonidine HCl 0.1 mg tablet 0.1 mg PO BID 01/28/24 01/28/24 hydroxyzine pamoate 50 mg capsule 50 mg PO DAILY PRN Anxiety 01/28/24 01/28/24 sertraline 100 mg tablet 100 mg PO DAILY 01/28/24 01/28/24 Mental Status Exam Mental Status Exam Narrative: see note I made earlier on 09/11 for details this was unchanged DS: Summary Hospital Course Hospital Course: Patient was admitted due to suicidal ideation and alcohol withdrawl stopped responding to ativan 2mg tid - with continued elevated vitals and decision was made to transfer to medical unit after I had already seen patient earlier in day - when his vitals continued elevated Status at Discharge Cognitive/behavioral status at discharge: A and 0x 3, no si Functional status at discharge: independent ambulation Overall status at discharge: other (needed more medical care for detox - ) Time Spent with Patient Time attestation: Total time managing care of this patient today ____ minutes. Time spent: Less than 30 minutes Specific discharge activities: was called by nursing about pt not responding to our wa Discharge Plan Discharge Anticipated Discharge Date/Time: 09/11/20 21:19 Patient Disposition: Xfer Acute Care Hospital Discharge Diagnosis: Alcohol withdrawl complicated Referrals: Physician,None [Primary Care Provider] - Discharge Medications: No Action clonidine HCl 0.1 mg tablet 0.1 mg PO BID sertraline 100 mg tablet 100 mg PO DAILY hydroxyzine pamoate 50 mg capsule 50 mg PO DAILY PRN (Reason: Anxiety) albuterol sulfate [Ventolin HFA] 90 mcg/actuation HFA aerosol inhaler 2 puff inhalation Q4-6H PRN (Reason: Shortness Of Breath Or Wheezing) prednisone 20 mg tablet 60 mg PO DAILY Qty: 12 0RF albuterol sulfate [Proventil HFA] 90 mcg/actuation HFA aerosol inhaler 2 puff inhalation Q4-6H PRN (Reason: shortness of breath or wheezing) Qty: 8.5 0RF Discharge Orders: Discharge Order (Routine); Ordered 09/11/20 Ordered By: Araceli Blair Diet: Regular diet Activity on Discharge: As tolerated Print Language: Senegalese Care Plan Goals: readddress ? si and need for transfer back to psych with consult after detox more stable medically Health Concerns: alcohol withdrawl elevated vitals Plan of Treatment: continue to reassess psychiatric status Assessment: fu psych consult or reeval for psych admission after detox stabilizes Discharge Date/Time: 09/11/20 01:37
== END 2020-09-11 01:37 | disposition short-term general hospital (02) | DRG 885 ==
LOC: HO.ED 09-09 00:29 → HO.PM5 09-09 02:57
PROVIDERS: Internal Medicine; Admitting Provider Psychiatry & Neurology Psychiatry; Emergency Provider Emergency Medicine; Visit Provider Psychiatry & Neurology Psychiatry
DX: F33.1 Major depressive disorder, recurrent, moderate (principal); R45.851 Suicidal ideations; K21.9 Gastro-esophageal reflux disease without esophagitis; F17.210 Nicotine dependence, cigarettes, uncomplicated; Z71.6 Tobacco abuse counseling; F10.10 Alcohol abuse, uncomplicated; D49.4 Neoplasm of unspecified behavior of bladder; Z20.828 Contact with and (suspected) exposure to other viral communicable diseases; Z79.899 Other long term (current) drug therapy
CPT/HCPCS: 36415; 71045; 80048; 80307; 84484; 85025; 85060; 87635; 93005; 96374; 96375; 99222; 99232; 99285; J1885; J2060

== ENCOUNTER 2020-09-11 01:40 | Inpatient (IN) | payer MEDICAID, SELFPAY ==
[2020-09-11 02:46] VITALS: BMI 19.3
[2020-09-11 02:53] VITALS: BP 127/76; PULSE 104; RESP 16; TEMP 36.7
[2020-09-11 03:00] LABS: Eosinophils Absolute Auto 0.1 X10*3/uL (0.0-0.4); Eosinophils Percent Auto 1.4 % (0-4); MANUAL DIFF FLAG NO; Mean Corpuscular Volume 109.6 fL (80-98); PLT CLUMP 1; Red Cell Distribution Width 11.8 % (11.0-16.0); SCAN SMEAR FLAG 1
[2020-09-11 03:02] LABS: Basophils Percent Auto 0.2 % (0-2); Hematocrit 34.2 % (42-52); Imm Gran Abs Auto 0.02 X10*3/uL (0.00-0.03); Imm Gran Pct Auto 0.4 % (0.0-0.4); Lymphocytes Absolute Auto 1.3 X10*3/uL (1.2-4.9); Mean Corpuscular HGB Conc 35.1 g/dl (31.0-36.0); Mean Corpuscular Hemoglobin 38.5 pg (27.0-33.0); Mean Platelet Volume 11.3 fL (9.4-12.4); Monocytes Absolute Auto 0.6 X10*3/uL (0.1-1.2); Monocytes Percent Auto 10.3 % (2-11); Neutrophils Absolute Auto 3.7 X10*3/uL (2.0-8.3); Neutrophils Percent Auto 64.7 % (45-73); Platelet Count 38 X10*3/uL (160-400); Red Blood Count 3.12 X10*6/uL (4.60-5.80); White Blood Count 5.7 X10*3/uL (4.8-10.8)
[2020-09-11 03:23] LABS: Anion Gap 16 (12-20); Blood Urea Nitrogen 17 mg/dL (9-16); Calcium 9.3 mg/dL (8.4-10.2); Carbon Dioxide 24 mmol/L (22-29); Chloride 95 mmol/L (96-108); Creatinine Clr Calc Pharmacy 106.7; Estimated Glomerular Filt Rate > 60; Glucose Random 96 mg/dL (60-115); Potassium 3.6 mmol/l (3.3-5.1); Sodium 131 mmol/L (135-145)
[2020-09-11] MEDS: PHENobarbitaL sodium 130 MG/ML VIAL 252 MG IM (03:26)
--- NOTE | 2020-09-11 04:32 | PM.IMHP ---
History of Present Illness Date of Service: 09/11/20 Chief Complaint: withdrawal this is a 39-year-old male with past medical history of depression, and alcohol abuse who is currently being managed at the [facility] unit for suicidal ideation. Patient is being admitted under the medical service for withdrawal symptoms. On my visit of the patient, he is hallucinating, talking about his mother being in the room with her and him trying to protect her, he is otherwise able to answer questions appropriately. He tells me that his last drink was on , he does tend to have withdrawal symptoms including anxiety, and shaking when he does not drink, he otherwise denies any chest pain, any shortness of breath, any belly pain, nausea or vomiting, no urinary symptoms, no diarrhea Or constipation. he denies any previous history of withdrawal seizures. At the [facility] his vitals recorded as having heart rate up to 140s. Otherwise vitals within normal range. Labs obtained on transfer to the floor show no significant abnormality except for a sodium of 131, Past medical history: Alcohol abuse, GERD, depression past surgical history: Denies family history: Denies social history: Comes from home, smokes about 1 pack per day, denies any illicit drugs Review of Systems Review of Systems: Yes all other systems are reviewed and are negative [facility] Medical History (Updated 09/11/20 @ 04:36 by Keyur Xavier MD) ETOH abuse GERD (gastroesophageal reflux disease) Neuropathy Social History Household Members: Family Housing: House Alcohol intake: current Smoking Status: Current every day smoker Tobacco Type: Cigarette Packs Per Day: 1 Cigarettes Per Day: 20.0 Years Smoked: unknown Smoked in Last 30 Days: Yes Patient Interested in Nicotine Replacement: No Patient Given Instructions on How to Stop Smoking: Yes Date Education Initiated: 09/11/20 Second Hand Smoke Exposure: Yes Use of substances other than those prescribed or required for medical reasons: Yes Substance Use Type: Marijuana Substance Use Frequency: Daily Last Used Substance: Days (ago) Last Used Substance Other:: MARIJUANA Currently Displaying Signs/Symptoms of Drug Intoxication Withdrawal: No Any prior treatment program specific to substance use: No Have you been hit, kicked, punched, or otherwise hurt by someone within the past year? If so, by whom?: No Do you feel safe in your current relationship?: No Current Relationship Is there a partner from a previous relationship who is making you feel unsafe now?: No Are you made to feel afraid or neglected: No Advance Directives: No Advance Directives Information Provided: No Do you have thoughts of harming others: None Do you have a plan to hurt others: No Plan Recently lost weight without trying: No Sexual orientation: Client was not available to complete this intake due to withdrawal symptoms Meds Allergies Allergy/AdvReac Type Severity Reaction Status Date / Time No Known Allergies Allergy Verified 08/17/20 18:21 Home Medications Medication Instructions Recorded Confirmed Type No Known Home Meds 09/08/20 09/11/20 History Physical Exam Vital Signs and Narrative: Vital Signs: Last Vital Signs Temp 98.1 F 09/11/20 02:53 Pulse 104 H 09/11/20 02:53 Resp 16 09/11/20 02:53 BP 127/76 09/11/20 02:53 Body Mass Index 19.3 Const: Other: hallucinating, talking a lot to somebody who is not there General: cooperative and no acute distress Eyes: General: appearance normal, both eyes and all related structures Pupils: Equal, round and reactive pupils present Resp: Effort & Inspection: normal respiratory effort and able to speak in complete sentences Auscultation: clear to auscultation bilaterally Cardio: Rate: regular rate Rhythm: regular rhythm GI: Palpation (GI): Soft to palpation Auscultation: normal bowel sounds Skin: General skin exam: no rashes or lesions noted Neuro: Cranial nerves: Yes Equal, round and reactive pupils present Cognition (Neuro): normal cognition Extrem: General: Yes normal to inspection and Yes no pedal edema Psych: Other: hallucination Appearance: disheveled Speech and movement: Normal speech and movement present Results Labs CBC and Chem 7: 09/11/20 02:50 09/11/20 02:50 Labs: Laboratory Results - last 24 hr 09/11/20 09/11/20 02:50 02:50 MCV 109.6 H MCH 38.5 H MCHC 35.1 RDW 11.8 Plt Count 38 L D MPV 11.3 Immature Gran % (Auto) 0.4 Neut % (Auto) 64.7 Lymph % (Auto) 23.0 [place] % (Auto) 10.3 Eos % (Auto) 1.4 Baso % (Auto) 0.2 Lymph # (Auto) 1.3 [place] # (Auto) 0.6 Eos # (Auto) 0.1 Baso # (Auto) 0.0 Abs Immat Gran (auto) 0.02 Absolute Neuts (auto) 3.7 Absolute Nucleated RBC 0.000 Nucleated RBC % (auto) 0.0 Anion Gap 16 Estim Creat Clear Calc 106.7 Estimated GFR > 60 Random Glucose 96 Calcium 9.3 Assessment and Plan (1) Alcohol withdrawal: Status: Acute (2) ETOH abuse: Status: Acute (3) Depression: Qualifiers: Active/Remission status: currently active Depression Type: major depressive disorder Major depression episode severity: moderate Major depression recurrence: recurrent Qualified Code(s): F33.1 - Major depressive disorder, recurrent, moderate Status: Acute (4) GERD (gastroesophageal reflux disease): Status: Acute (5) Platelets decreased: Status: Acute 39-year-old initially at the [facility] for suicidal ideation, transferred to the medical floor for alcohol withdrawal # alcohol withdrawal - last drink on , heavy drinker drinks about 1 pint daily - currently is having hallucinations and DTs plan: - Will start him on phenobarb protocol - thiamine, folic acid supplement - monitor closely # alcohol abuse - currently patient withdrawing - management as above # depression with suicidal ideation - continue psych consult and psych meds # thrombocytopenia - unclear etiology most likely secondary to possible underlying liver disease due to his history of alcohol abuse - no active bleed - will follow CBC DVT prophylaxis: SCDs in the setting with significant thrombocytopenia
[2020-09-11] MEDS: 0.9 % Sodium Chloride 1,000 ML 100 ML IVCONT (05:08)
[2020-09-11] MEDS: PHENobarbitaL sodium 65 MG/ML VIAL 189 MG IM ×2 (06:11→09:10)
[2020-09-11 07:11] VITALS: BP 140/83; PULSE 98; RESP 18; TEMP 36.6; O2SAT 100
[2020-09-11] MEDS: Thiamine HCL 100 MG TABLET PO (09:12)
[2020-09-11] MEDS: Folic Acid 1 MG TABLET PO (09:12)
--- NOTE | 2020-09-11 09:51 | MHC.CM.PN ---
CM met with patient at the bedside who reports he is unemployed, no insurance, lives with his mom but was transferred to [facility] from with SI. Referred patient to our financial counselors. Patient does not have a HCP and declines filling one out today. Discussed discharge plan, patient will return to for SI. CM will continue to follow patient for discharge needs.
[2020-09-11 11:21] VITALS: BP 125/84; PULSE 105; RESP 18; TEMP 37.1; O2SAT 97
[2020-09-11] MEDS: HaloperidoL 0.5 MG TABLET PO (13:19)
[2020-09-11 15:14] LABS: Anion Gap 17 (12-20); Blood Urea Nitrogen 15 mg/dL (9-16); Calcium 9.4 mg/dL (8.4-10.2); Carbon Dioxide 22 mmol/L (22-29); Chloride 97 mmol/L (96-108); Creatinine Clr Calc Pharmacy 112.3; Estimated Glomerular Filt Rate > 60; Glucose Random 93 mg/dL (60-115); Sodium 132 mmol/L (135-145)
[2020-09-11 15:22] VITALS: BP 115/76; PULSE 86; RESP 20; TEMP 36.7; O2SAT 100
[2020-09-11] MEDS: 0.9 % Sodium Chloride Flush 3 ML SYRINGE IVFLUSH (16:08)
--- NOTE | 2020-09-11 16:48 | P.PNIM_ITS ---
Subjective Subjective Date of Service: 09/12/20 Interval History: patient seen in follow-up of alcohol withdrawal and generalized depression, patient has a sitter due to concern for suicidal ideation, patient threatened to leave hospital, he continue to talk about his mother being in the other room and he is unable to communicate with her since his phone is not working, patient with similar symptoms in last 48 hours while in the emergency room , where patient was evaluated by psychiatrist. 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 CVS regular rate rhythm, Respiratory lungs clear to auscultation, no respiratory distress Gastrointestinal abdomen soft, nontender, bowel sounds audible Extremities no clubbing cyanosis or edema. Neuro patient moving all 4 extremity, speech clear. Skin no rash Objective Data Current Medications Generic Name Dose Route Start Last Admin Trade Name Luisq PRN Reason Stop Dose Admin Acetaminophen 650 mg 09/11/20 02:20 Acetaminophen 325 Mg Tablet PO Q6H PRN Pain, Mild (Pain Scale 1-3) Docusate Sodium 100 mg 09/11/20 02:20 Docusate Sodium 100 Mg Capsule PO DAILY PRN Constipation Folic Acid 1 mg 09/11/20 09:00 09/11/20 09:12 Folic Acid 1 Mg Tablet PO 1 mg DAILY EILEEN Administration Haloperidol 0.5 mg 09/11/20 11:31 09/11/20 13:19 Haloperidol 0.5 Mg Tablet PO 0.5 mg Q6H PRN Administration Alcohol Withdrawal Sodium Chloride 1,000 mls @ 100 mls/hr 09/11/20 04:45 09/11/20 15:05 Ns IVCONT Not Given .Q10H EILEEN Medication 1 each 09/11/20 04:00 No Benzodiazepines MISCELLANE DAILY EILEEN Nicotine Polacrilex 2 mg 09/11/20 14:09 Nicotine Polacrilex 2 Mg Gum BUCCAL Q1H PRN withdrawl Ondansetron HCl 4 mg 09/11/20 02:20 Ondansetron Hcl 4 Mg/2 Ml Vial IVPUSH Q8H PRN Nausea and Vomiting Phenobarbital 45 mg 09/11/20 21:00 Phenobarbital 15 Mg Tablet PO 09/13/20 09:01 BID EILEEN Protocol Phenobarbital 30 mg 09/13/20 21:00 Phenobarbital 30 Mg Tablet PO 09/15/20 09:01 BID EILEEN Protocol Phenobarbital 30 mg 09/16/20 09:00 Phenobarbital 30 Mg Tablet PO 09/18/20 08:59 DAILY EILEEN Protocol Sodium Chloride 3 ml 09/11/20 08:00 09/11/20 16:08 0.9 % Sodium Chloride Flush 3 Ml Syringe IVFLUSH 3 ml QSHIFT EILEEN Administration Thiamine HCl 100 mg 09/11/20 09:00 09/11/20 09:12 Thiamine Hcl 100 Mg Tablet PO 100 mg DAILY EILEEN Administration Labs CBC & Chem 7: 09/12/20 05:29 09/12/20 05:29 Assessment and Plan (1) Alcohol withdrawal: Status: Acute (2) Platelets decreased: Status: Acute (3) ETOH abuse: Status: Acute (4) Depression: Status: Acute (5) GERD (gastroesophageal reflux disease): Status: Acute Assessment and Plan: 39-year-old initially at the [facility] for suicidal ideation, transferred to the medical floor for alcohol withdrawal # alcohol abuse with withdrawal sxs /hallucinations - patient noted to be talking about his mother being in the other room, trying to call his mother, easily redirectable, wishes to go home to his mom - last drink on , heavy drinker drinks about 1 pint of vodka daily - Will continue phenobarb protocol, will add Haldol as needed, continue thiamine, folic acid supplement obtain psych eval to help assist in hallucinations and underlying depression # depression with suicidal ideation - being followed by psych , continue sitter, patient declined medications. # thrombocytopenia - unclear etiology most likely secondary to possible underlying liver disease with history of alcohol abuse, avoid anticoagulation, no active bleed will check LFT DVT prophylaxis: SCDs in the setting with significant thrombocytopenia
--- NOTE | 2020-09-11 16:57 | P.CNPS_ITS ---
History of Present Illness Date of Service: 09/11/2020 Chief Complaint: alcohol withdrawal, DTS Reason for Consult: recent transfer from Discussed with referring provider: No Sources of Information: patient interviewed and chart reviewed HPI Narrative: Patient is a 39 year old male who is currently medically admitted for Alcohol withdrawal/DT. He was originally admitted to unit for suicidal ideation, then transferred early this morning to medical floor for worsening ETOH withdrawal sx. Consult requested as continuity of care. Patient seen in room 443. Awake, alert and engaged in interview. Patient oriented to person only. Disorganized thought process. Documentation shows that he had been experiencing hallucinations earlier. Unaware of where he was or why he was here, perseverating on leaving to get his clothes. At the start of the interview clear that I was a medical provider, by mid interview he believed I was there to help him get belongings and offered this commercial loan underwriter money. He was able to articulate that he has been having thoughts of taking his own life. Limited insight, poor judgment. Prior to this writers arrival, patient attempted to elope. Past Psychiatric History: none Medical Evaluation Reviewed: Yes Review of Systems Review of Systems Yes Unobtainable due to mental status [facility] Medical History (Updated 09/11/20 @ 04:36 by Keyur Xavier MD) ETOH abuse GERD (gastroesophageal reflux disease) Neuropathy Family History: living with mother , sometimes with father and sometimes at friends Social History: has a job in [employer] , recent move , break up with radha who someone else Diagnostics Vital Signs (24Hr): Vital Signs - 24 hr 09/11/20 02:53 09/11/20 07:11 09/11/20 11:21 Temperature 98.1 F 97.8 F 98.8 F Pulse Rate 104 H 98 105 H Respiratory Rate 16 18 18 Blood Pressure 127/76 140/83 H 125/84 Pulse Oximetry 100 97 09/11/20 15:22 Temperature 98.0 F Pulse Rate 86 Respiratory Rate 20 Blood Pressure 115/76 Pulse Oximetry 100 Body Mass Index 19.3 Labs Results: 09/11/20 02:50 09/11/20 14:36 Labs: Laboratory Results - last 48 hr 09/11/20 09/11/20 09/11/20 02:50 02:50 14:36 WBC 5.7 RBC 3.12 L Hgb 12.0 L Hct 34.2 L MCV 109.6 H MCH 38.5 H MCHC 35.1 RDW 11.8 Plt Count 38 L D MPV 11.3 Immature Gran % (Auto) 0.4 Neut % (Auto) 64.7 Lymph % (Auto) 23.0 [place] % (Auto) 10.3 Eos % (Auto) 1.4 Baso % (Auto) 0.2 Lymph # (Auto) 1.3 [place] # (Auto) 0.6 Eos # (Auto) 0.1 Baso # (Auto) 0.0 Abs Immat Gran (auto) 0.02 Absolute Neuts (auto) 3.7 Absolute Nucleated RBC 0.000 Nucleated RBC % (auto) 0.0 Sodium 131 L 132 L Potassium 3.6 4.0 Chloride 95 L 97 Carbon Dioxide 24 22 Anion Gap 16 17 BUN 17 H D 15 Creatinine 0.81 0.77 Estim Creat Clear Calc 106.7 112.3 Estimated GFR > 60 > 60 Random Glucose 96 93 Calcium 9.3 9.4 Mental Status Exam Mental Status Exam Patient Appearance: Disheveled Patient Orientation: Person Level of Consciousness: Awake, Disoriented, Alert and Inappropriate Patient Behavior: Talkative, Confused and Impulsive Mood Description: Anxious and Expansive Affect Description: Anxious and Expansive Patient Cognition Impaired: Yes Speech Pattern: Clear and Rambling Delusions: Present Thought Process: Disoriented and Confusion Thought Content: positive for Kinta and positive for Disorganized Judgement: Poor Medications Medications Current Medications Generic Name Dose Route Start Last Admin Trade Name Freq PRN Reason Stop Dose Admin Acetaminophen 650 mg 09/11/20 02:20 Acetaminophen 325 Mg Tablet PO Q6H PRN Pain, Mild (Pain Scale 1-3) Docusate Sodium 100 mg 09/11/20 02:20 Docusate Sodium 100 Mg Capsule PO DAILY PRN Constipation Folic Acid 1 mg 09/11/20 09:00 09/11/20 09:12 Folic Acid 1 Mg Tablet PO 1 mg DAILY EILEEN Administration Haloperidol 0.5 mg 09/11/20 11:31 09/11/20 13:19 Haloperidol 0.5 Mg Tablet PO 0.5 mg Q6H PRN Administration Alcohol Withdrawal Sodium Chloride 1,000 mls @ 100 mls/hr 09/11/20 04:45 09/11/20 15:05 Ns IVCONT Not Given .Q10H EILEEN Medication 1 each 09/11/20 04:00 No Benzodiazepines MISCELLANE DAILY EILEEN Nicotine Polacrilex 2 mg 09/11/20 14:09 Nicotine Polacrilex 2 Mg Gum BUCCAL Q1H PRN withdrawl Ondansetron HCl 4 mg 09/11/20 02:20 Ondansetron Hcl 4 Mg/2 Ml Vial IVPUSH Q8H PRN Nausea and Vomiting Phenobarbital 45 mg 09/11/20 21:00 Phenobarbital 15 Mg Tablet PO 09/13/20 09:01 BID EILEEN Protocol Phenobarbital 30 mg 09/13/20 21:00 Phenobarbital 30 Mg Tablet PO 09/15/20 09:01 BID IELEEN Protocol Phenobarbital 30 mg 09/16/20 09:00 Phenobarbital 30 Mg Tablet PO 09/18/20 08:59 DAILY EILEEN Protocol Sodium Chloride 3 ml 09/11/20 08:00 09/11/20 16:08 0.9 % Sodium Chloride Flush 3 Ml Syringe IVFLUSH 3 ml QSHIFT EILEEN Administration Thiamine HCl 100 mg 09/11/20 09:00 09/11/20 09:12 Thiamine Hcl 100 Mg Tablet PO 100 mg DAILY EILEEN Administration Allergies Allergies Allergy/AdvReac Type Severity Reaction Status Date / Time No Known Allergies Allergy Verified 08/17/20 18:21 Assessment & Plan Assessment & Plan (1) Alcohol withdrawal: Status: Acute Code(s): F10.239 - Alcohol dependence with withdrawal, unspecified Recommendations: * Haldol PRN for agitation associated with delirium * Once delirium clears should transfer back to unit to treat depression and suicidal ideation which were presenting issues * Greater than 50% of the session was spent on counseling and/or coordination of care
[2020-09-11 19:59] VITALS: BP 137/76; PULSE 88; RESP 18; TEMP 36.7; O2SAT 100
[2020-09-11] MEDS: PHENobarbitaL 15 MG TABLET 45 MG PO (20:09)
[2020-09-11] MEDS: Nicotine Polacrilex 2 MG GUM BUCCAL ×2 (20:11→21:34)
[2020-09-12] VITALS: RESP 18
[2020-09-12] MEDS: 0.9 % Sodium Chloride Flush 3 ML SYRINGE IVFLUSH ×4 (00:28→21:42)
[2020-09-12 04:00] VITALS: BP 157/87; PULSE 91; RESP 18; TEMP 36.5; O2SAT 100
[2020-09-12 06:48] LABS: Basophils Percent Auto 0.4 % (0-2); Eosinophils Absolute Auto 0.1 X10*3/uL (0.0-0.4); Eosinophils Percent Auto 1.6 % (0-4); Imm Gran Abs Auto 0.01 X10*3/uL (0.00-0.03); Imm Gran Pct Auto 0.2 % (0.0-0.4)
[2020-09-12 06:50] LABS: Hemoglobin 11.9 g/dl (14.0-18.0); Lymphocytes Absolute Auto 1.2 X10*3/uL (1.2-4.9); Lymphocytes Percent Auto 22.9 % (20-40); Mean Corpuscular Hemoglobin 38.1 pg (27.0-33.0); Mean Platelet Volume 11.8 fL (9.4-12.4); Monocytes Absolute Auto 0.5 X10*3/uL (0.1-1.2); Monocytes Percent Auto 9.6 % (2-11); Neutrophils Absolute Auto 3.3 X10*3/uL (2.0-8.3); Neutrophils Percent Auto 65.3 % (45-73); Red Blood Count 3.12 X10*6/uL (4.60-5.80); Red Cell Distribution Width 11.6 % (11.0-16.0)
[2020-09-12 06:53] LABS: Platelet Count 49 X10*3/uL (160-400)
[2020-09-12 07:13] LABS: Alanine Aminotransferase 77 U/L (0-40); Albumin Level 4.5 g/dL (3.5-5.0); Alkaline Phosphatase 75 U/L (39-117); Anion Gap 13 (12-20); Aspartate Amino Transferase 189 U/L (5-37); Bilirubin Direct 0.6 mg/dL (0.0-0.5); Bilirubin Total 1.1 mg/dL (0.0-1.0); Blood Urea Nitrogen 14 mg/dL (9-16); Carbon Dioxide 21 mmol/L (22-29); Chloride 98 mmol/L (96-108); Creatinine Clr Calc Pharmacy 127.1; Estimated Glomerular Filt Rate > 60; Glucose Random 79 mg/dL (60-115); Magnesium 1.8 mg/dL (1.6-2.6); Potassium 3.4 mmol/l (3.3-5.1); Sodium 129 mmol/L (135-145); Total Protein 7.6 g/dL (6.5-8.0)
[2020-09-12] MEDS: Thiamine HCL 100 MG TABLET PO (07:59)
[2020-09-12] MEDS: HaloperidoL 0.5 MG TABLET PO ×2 (07:59→21:43)
[2020-09-12] MEDS: PHENobarbitaL 15 MG TABLET 45 MG PO ×2 (07:59→21:43)
[2020-09-12 08:00] VITALS: BP 116/73; PULSE 106; RESP 18; TEMP 35.9; O2SAT 100
[2020-09-12] MEDS: Nicotine Polacrilex 2 MG GUM BUCCAL ×2 (08:00→21:43)
[2020-09-12] MEDS: Folic Acid 1 MG TABLET PO (08:00)
[2020-09-12 12:00] VITALS: BP 124/82; PULSE 86; RESP 18; TEMP 36.5; O2SAT 100
--- NOTE | 2020-09-12 13:46 | P.PNIM_ITS ---
Subjective Subjective Date of Service: 09/12/20 Interval History: patient seen in follow-up for alcohol withdrawal, this a.m. patient is awake alert no confusion noted, patient complaining of hand pain at site of IV insertion, no fever chills, denies chest pain, or palpitation. Review of Systems General no headache no dizziness no fever chills. CVS no chest pain, no palpitation. Respiratory no cough, no sputum production, no respiratory distress. Gastrointestinal no nausea, no vomiting, no abdominal pain Physical Exam Vital Signs: Vital Signs: Last Vital Signs Temp 96.7 F L 09/12/20 08:00 Pulse 106 H 09/12/20 08:00 Resp 18 09/12/20 08:00 BP 116/73 09/12/20 08:00 Pulse Ox 100 09/12/20 08:00 Body Mass Index 19.3 General patient awake, alert, no anxiety, answering questions appropriately. Neck is supple no JVD. CVS regular rate rhythm, Respiratory lungs clear to auscultation, no respiratory distress Gastrointestinal abdomen soft, nontender, bowel sounds audible Extremities no clubbing,no cyanosis or edema.Left forearm at site of IV insertion ,has no redness, no swelling Neuro patient moving all 4 extremity, speech clear. Skin no rash Objective Data Current Medications Generic Name Dose Route Start Last Admin Trade Name Freq PRN Reason Stop Dose Admin Acetaminophen 650 mg 09/11/20 02:20 Acetaminophen 325 Mg Tablet PO Q6H PRN Pain, Mild (Pain Scale 1-3) Docusate Sodium 100 mg 09/11/20 02:20 Docusate Sodium 100 Mg Capsule PO DAILY PRN Constipation Folic Acid 1 mg 09/11/20 09:00 09/12/20 08:00 Folic Acid 1 Mg Tablet PO 1 mg DAILY EILEEN Administration Haloperidol 0.5 mg 09/11/20 11:31 09/12/20 07:59 Haloperidol 0.5 Mg Tablet PO 0.5 mg Q6H PRN Administration Alcohol Withdrawal Sodium Chloride 1,000 mls @ 100 mls/hr 09/11/20 04:45 09/12/20 11:46 Ns IVCONT Not Given .Q10H EILEEN Medication 1 each 09/11/20 04:00 No Benzodiazepines MISCELLANE DAILY EILEEN Nicotine Polacrilex 2 mg 09/11/20 14:09 09/12/20 08:00 Nicotine Polacrilex 2 Mg Gum BUCCAL 2 mg Q1H PRN Administration withdrawl Ondansetron HCl 4 mg 09/11/20 02:20 Ondansetron Hcl 4 Mg/2 Ml Vial IVPUSH Q8H PRN Nausea and Vomiting Phenobarbital 45 mg 09/11/20 21:00 09/12/20 07:59 Phenobarbital 15 Mg Tablet PO 09/13/20 09:01 45 mg BID EILEEN Administration Protocol Phenobarbital 30 mg 09/13/20 21:00 Phenobarbital 30 Mg Tablet PO 09/15/20 09:01 BID EILEEN Protocol Phenobarbital 30 mg 09/16/20 09:00 Phenobarbital 30 Mg Tablet PO 09/18/20 08:59 DAILY EILEEN Protocol Sodium Chloride 3 ml 09/11/20 08:00 09/12/20 08:01 0.9 % Sodium Chloride Flush 3 Ml Syringe IVFLUSH 3 ml QSHIFT EILEEN Administration Thiamine HCl 100 mg 09/11/20 09:00 09/12/20 07:59 Thiamine Hcl 100 Mg Tablet PO 100 mg DAILY EILEEN Administration Labs CBC & Chem 7: 09/12/20 05:29 09/12/20 05:29 Assessment and Plan (1) Alcohol withdrawal: Status: Acute (2) GERD (gastroesophageal reflux disease): Status: Acute (3) Platelets decreased: Status: Acute (4) ETOH abuse: Status: Acute (5) Depression: Status: Acute Assessment and Plan: 39-year-old initially at the [facility] for suicidal ideation, transferred to the medical floor for alcohol withdrawal # alcohol abuse with withdrawal sxs /hallucinations/delirium - patient more calmed today, with no hallucination, no anxiety - last drink on , heavy drinker drinks about 1 pint of vodka daily - Will continue phenobarb protocol, haldol as needed, continue thiamine, folic acid supplement patient seen by psych they recommend to transfer patient to psych Unit to treat underlying depression and suicidal ideation once his delirium clears. # depression with suicidal ideation - being followed by psych , continue sitter, patient declined medications, will consult N due to suicidal ideation.. # thrombocytopenia - unclear etiology most likely secondary to possible underlying liver disease with history of alcohol abuse, avoid anticoagulation, no active bleed , elevated liver enzymes but stable with no abdominal pain repeat platelet level stable. DVT prophylaxis: SCDs in the setting with significant thrombocytopenia
[2020-09-12 15:38] VITALS: BP 125/75; PULSE 57; RESP 20; TEMP 36.6; O2SAT 99
[2020-09-12 19:22] VITALS: BP 126/89; PULSE 76; RESP 18; TEMP 36.4; O2SAT 100
[2020-09-13 08:00] VITALS: BP 127/89; PULSE 83; RESP 16; TEMP 35.9; O2SAT 100
[2020-09-13] MEDS: Thiamine HCL 100 MG TABLET PO (08:56)
[2020-09-13] MEDS: Folic Acid 1 MG TABLET PO (08:57)
[2020-09-13] MEDS: PHENobarbitaL 15 MG TABLET 45 MG PO (08:57)
[2020-09-13] MEDS: 0.9 % Sodium Chloride Flush 3 ML SYRINGE IVFLUSH ×2 (08:57→17:06)
--- NOTE | 2020-09-13 10:10 | MHC.CARE ---
Addendum entered by Stacey Segovia [facility] 09/13/20 10:12: Tiffany will contact [facility] with this info and pending the outcome of this it is unclear as of right now if pt will still be admitted to M5. Original Note: [place] [facility] [place] wo was planned to be admitted to M5. T/w was transferred to the nurse Laureano who reported that it was passed along that pt was planned to have admission to M5 but now his provider on medical floor is suggesting that pt be re-seen and likely able to go home. P
[2020-09-13] MEDS: Nicotine Polacrilex 2 MG GUM BUCCAL ×4 (10:25→19:03)
--- NOTE | 2020-09-13 11:11 | MHC.CM.PN ---
Per ROUNDS discussion, Patient needs to be evaluated by [facility]N and will likely be returning to M5 Psych Unit here at [facility]. CM will continue to follow.
--- NOTE | 2020-09-13 11:29 | P.PNIM_ITS ---
Subjective Subjective Date of Service: 09/13/20 Interval History: patient seen in follow-up for alcohol withdrawal, this a.m. patient is awake alert no confusion and denies SI Review of Systems General no headache no dizziness no fever chills. CVS no chest pain, no palpitation. Respiratory no cough, no sputum production, no respiratory distress. Gastrointestinal no nausea, no vomiting, no abdominal pain Physical Exam Vital Signs: Vital Signs: Last Vital Signs Temp 96.7 F L 09/13/20 08:00 Pulse 83 09/13/20 08:00 Resp 16 09/13/20 08:00 BP 127/89 09/13/20 08:00 Pulse Ox 100 09/13/20 08:00 Body Mass Index 19.3 General: AO X 3, no acute distress Resp: CTA bilateral CVS: S1,S2,RRR GI: +BS, NT, no distention Skin: No rash Neuro: motor grossly intact Psych: appropriate affect , denies SI Objective Data Current Medications Generic Name Dose Route Start Last Admin Trade Name Freq PRN Reason Stop Dose Admin Acetaminophen 650 mg 09/11/20 02:20 Acetaminophen 325 Mg Tablet PO Q6H PRN Pain, Mild (Pain Scale 1-3) Docusate Sodium 100 mg 09/11/20 02:20 Docusate Sodium 100 Mg Capsule PO DAILY PRN Constipation Folic Acid 1 mg 09/11/20 09:00 09/13/20 08:57 Folic Acid 1 Mg Tablet PO 1 mg DAILY EILEEN Administration Haloperidol 0.5 mg 09/11/20 11:31 09/12/20 21:43 Haloperidol 0.5 Mg Tablet PO 0.5 mg Q6H PRN Administration Alcohol Withdrawal Sodium Chloride 1,000 mls @ 100 mls/hr 09/11/20 04:45 09/13/20 05:39 Ns IVCONT Not Given .Q10H EILEEN Medication 1 each 09/11/20 04:00 No Benzodiazepines MISCELLANE DAILY EILEEN Nicotine Polacrilex 2 mg 09/11/20 14:09 09/13/20 10:25 Nicotine Polacrilex 2 Mg Gum BUCCAL 2 mg Q1H PRN Administration withdrawl Ondansetron HCl 4 mg 09/11/20 02:20 Ondansetron Hcl 4 Mg/2 Ml Vial IVPUSH Q8H PRN Nausea and Vomiting Phenobarbital 30 mg 09/13/20 21:00 Phenobarbital 30 Mg Tablet PO 12/11/20 09:01 BID EILEEN Protocol Phenobarbital 30 mg 09/16/20 09:00 Phenobarbital 30 Mg Tablet PO 09/18/20 08:59 DAILY EILEEN Protocol Sodium Chloride 3 ml 09/11/20 08:00 09/13/20 08:57 0.9 % Sodium Chloride Flush 3 Ml Syringe IVFLUSH 3 ml QSHIFT EILEEN Administration Thiamine HCl 100 mg 09/11/20 09:00 09/13/20 08:56 Thiamine Hcl 100 Mg Tablet PO 100 mg DAILY EILEEN Administration Labs CBC & Chem 7: 09/12/20 05:29 09/12/20 05:29 Assessment and Plan (1) Alcohol withdrawal: Status: Acute (2) GERD (gastroesophageal reflux disease): Status: Acute (3) Platelets decreased: Status: Acute (4) ETOH abuse: Status: Acute (5) Depression: Status: Acute Assessment and Plan: 39-year-old initially at the [facility] for suicidal ideation, transferred to the medical floor for alcohol withdrawal # alcohol abuse with withdrawal sxs /hallucinations/delirium - he is completely calm, lucid and no tremors -continue Phenobarb # depression with suicidal ideation - being followed by psych , continue sitter, patient declined medications -[facility] consult for transfer to to Psych # thrombocytopenia - unclear etiology most likely secondary to possible underlying liver disease with history of alcohol abuse, avoid anticoagulation, no active bleed , elevated liver enzymes but stable with no abdominal pain repeat platelet level stable. DVT prophylaxis: SCDs in the setting with significant thrombocytopenia
--- NOTE | 2020-09-13 15:10 | MHC.CARE ---
Patient finished medical treatment for withdrawal and requested to leave the hospital instead of returning to M5 as was the plan. 1200 Met with patient in room 462, he was alert and oriented, engaged but guarded. Discussed his transition back to to finish he treatment, he stated that he does not want to go back to the psychiatric unit. Said he prefers to work things out at home by himself, may join a program. At this time patient does not have health insurance, a PCP, prescriber or a therapist. He denied having suicidal ideation at this time and said that things were just piling up and he felt overwhelmed but now feels better. Patient lives with his mother and gave permission for CARE team to call her and hear her concerns. Call to patient?s mother, Cierra. She reported that her son recently moved to [place], lived with his father who recently told him to leave due to the alcohol use. While at his mother?s home, she has witnessed him repeatedly hitting himself in the head, consistently makes statements such as, ?I?m done with this world, I can?t take it anymore.? She is very concerned about his mental health and safety, said he has a history of suicide attempts (no details) and his brother took his own life several years ago. Patient?s mother was weeping, ?please don?t discharge him, please help my son.? Patient is determined unsafe for discharge and will be readmitted to . Section 12A and 12B signed, however he will be given an opportunity to sign himself in on a Conditional Voluntary. Inspector Plating and psychiatric providers in agreement with MD octavia and RN updated.
[2020-09-13 15:12] VITALS: BP 119/74; PULSE 84; RESP 18; TEMP 36.6; O2SAT 100
--- NOTE | 2020-09-13 15:37 | P.DS_ITS ---
DS: Providers Provider Date of admission: 09/11/20 01:40 Primary care physician: Unknown Physician Consults: 09/11/20 04:39 Consult to Psychiatry Routine Consulting Provider: Araceli Celeste Reason for consultation: suicidal ideation Has provider been notified: No 09/13/20 10:34 Consult to Crisis Stat Reason for consultation: reassess for M5 DS: Diagnosis Discharge Diagnosis (1) Alcohol withdrawal: Status: Resolved (2) GERD (gastroesophageal reflux disease): Status: Resolved (3) Platelets decreased: Status: Resolved (4) ETOH abuse: Status: Acute (5) Depression: Status: Acute DS: Medications Discharge Medications Home Medications: Home Medications Medication Instructions Recorded Confirmed No Known Home Meds 09/08/20 09/11/20 DS: Summary Hospital Course Hospital Course: Date of Service: 09/11/20 Chief Complaint: withdrawal this is a 39-year-old male with past medical history of depression, and alcohol abuse who is currently being managed at the [facility] unit for suicidal ideation. Patient is being admitted under the medical service for withdrawal symptoms. On my visit of the patient, he is hallucinating, talking about his mother being in the room with her and him trying to protect her, he is otherwise able to answer questions appropriately. He tells me that his last drink was on , he does tend to have withdrawal symptoms including anxiety, and shaking when he does not drink, he otherwise denies any chest pain, any shortness of breath, any belly pain, nausea or vomiting, no urinary symptoms, no diarrhea Or constipation. he denies any previous history of withdrawal seizures. At the U his vitals recorded as having heart rate up to 140s. Otherwise vitals within normal range. Hospital course: # Alcohol abuse with withdrawal sxs /hallucinations/delirium. He has responded well with Phenobarbital protocol, folic acid and thiamine. Presently not actively withdrawing # Depression with suicidal ideation--risk of self harm so has had sitter. [facility] recommends readmission to Psych. Section 12 completed # Thrombocytopenia--likely frrom chronic sequestration form liver disease, hypersplenism.. Platlets is stable. Status at Discharge Functional status at discharge: independent ambulation Time Spent with Patient Time attestation: Total time spent providing and/or coordinating discharge services: Discharge coordination time: Greater than 30 minutes Physical Exam Vital Signs: Vital Signs: Last Vital Signs Temp 97.9 F 09/13/20 15:12 Pulse 84 09/13/20 15:12 Resp 18 09/13/20 15:12 BP 119/74 09/13/20 15:12 Pulse Ox 100 09/13/20 15:12 Body Mass Index 19.3 General: AO X 3, no acute distress Resp: CTA bilateral CVS: S1,S2,RRR GI: +BS, NT, no distention Skin: No rash Neuro: motor grossly intact Psych: appropriate affect , denies SI DS: Data Data Completed and Pending Labs on day of discharge: 09/11/20 02:08 Transfer Order Routine 09/11/20 02:20 Consult Rx EtOH Phenob Dosing 1 each MISCELLANE ONCE ONE Enoxaparin Sodium [Lovenox] 40 mg SUBCUT Q24H 09/11/20 02:20 IV insert/maintain Q4HR Intake and Output Q8HR Vital Signs Q4HR 09/11/20 02:50 Basic Metabolic Panel Stat Complete Blood Count Auto Diff Stat 09/11/20 03:15 PHENobarbitaL sodium 252 mg IM ONCE ONE 09/11/20 06:15 PHENobarbitaL sodium 189 mg IM Q3H 09/11/20 14:36 Basic Metabolic Panel Stat 09/11/20 21:00 PHENobarbitaL 45 mg PO BID 09/12/20 05:29 Basic Metabolic Panel Routine Complete Blood Count Auto Diff Routine Liver Panel Routine Magnesium Routine Laboratory Last Values WBC 5.0 X10*3/uL (4.8-10.8) 09/12/20 05:29 WBC Cancelled 09/12/20 05:29 RBC 3.12 X10*6/uL (4.60-5.80) L 09/12/20 05:29 RBC Cancelled 09/12/20 05:29 Hgb 11.9 g/dl (14.0-18.0) L 09/12/20 05:29 Hgb Cancelled 09/12/20 05:29 Hct 34.0 % (42-52) L 09/12/20 05:29 Hct Cancelled 09/12/20 05:29 MCV 109.0 fL (80-98) H 09/12/20 05:29 MCV Cancelled 09/12/20 05:29 MCH 38.1 pg (27.0-33.0) H 09/12/20 05:29 MCH Cancelled 09/12/20 05:29 MCHC 35.0 g/dl (31.0-36.0) 09/12/20 05:29 MCHC Cancelled 09/12/20 05:29 RDW 11.6 % (11.0-16.0) 09/12/20 05:29 RDW Cancelled 09/12/20 05:29 Plt Count 49 X10*3/uL (160-400) L D 09/12/20 05:29 Plt Count Cancelled 09/12/20 05:29 MPV 11.8 fL (9.4-12.4) 09/12/20 05:29 MPV Cancelled 09/12/20 05:29 Immature Gran % (Auto) 0.2 % (0.0-0.4) 09/12/20 05:29 Immature Gran % (Auto) Cancelled 09/12/20 05:29 Neut % (Auto) 65.3 % (45-73) 09/12/20 05:29 Neut % (Auto) Cancelled 09/12/20 05:29 Lymph % (Auto) 22.9 % (20-40) 09/12/20 05:29 Lymph % (Auto) Cancelled 09/12/20 05:29 [place] % (Auto) 9.6 % (2-11) 09/12/20 05:29 [place] % (Auto) Cancelled 09/12/20 05:29 Eos % (Auto) 1.6 % (0-4) 09/12/20 05:29 Eos % (Auto) Cancelled 09/12/20 05:29 Baso % (Auto) 0.4 % (0-2) 09/12/20 05:29 Baso % (Auto) Cancelled 09/12/20 05:29 Lymph # (Auto) 1.2 X10*3/uL (1.2-4.9) 09/12/20 05:29 Lymph # (Auto) Cancelled 09/12/20 05:29 [place] # (Auto) 0.5 X10*3/uL (0.1-1.2) 09/12/20 05:29 [place] # (Auto) Cancelled 09/12/20 05:29 Eos # (Auto) 0.1 X10*3/uL (0.0-0.4) 09/12/20 05:29 Eos # (Auto) Cancelled 09/12/20 05:29 Baso # (Auto) 0.0 X10*3/uL (0.0-0.2) 09/12/20 05:29 Baso # (Auto) Cancelled 09/12/20 05:29 Abs Immat Gran (auto) 0.01 X10*3/uL (0.00-0.03) 09/12/20 05:29 Abs Immat Gran (auto) Cancelled 09/12/20 05:29 Absolute Neuts (auto) 3.3 X10*3/uL (2.0-8.3) 09/12/20 05:29 Absolute Neuts (auto) Cancelled 09/12/20 05:29 Absolute Nucleated RBC 0.000 X10*3/uL (0.0-0.012) 09/12/20 05:29 Absolute Nucleated RBC Cancelled 09/12/20 05:29 Nucleated RBC % (auto) 0.0 /100WBC (0.0-0.2) 09/12/20 05:29 Nucleated RBC % (auto) Cancelled 09/12/20 05:29 Sodium 129 mmol/L (135-145) L 09/12/20 05:29 Sodium Cancelled 09/12/20 05:29 Potassium 3.4 mmol/l (3.3-5.1) 09/12/20 05:29 Potassium Cancelled 09/12/20 05:29 Chloride 98 mmol/L (96-108) 09/12/20 05:29 Chloride Cancelled 09/12/20 05:29 Carbon Dioxide 21 mmol/L (22-29) L 09/12/20 05:29 Carbon Dioxide Cancelled 09/12/20 05:29 Anion Gap 13 (12-20) 09/12/20 05:29 Anion Gap Cancelled 09/12/20 05:29 BUN 14 mg/dL (9-16) 09/12/20 05:29 BUN Cancelled 09/12/20 05:29 Creatinine 0.68 mg/dL (0.5-1.4) 09/12/20 05:29 Creatinine Cancelled 09/12/20 05:29 Estim Creat Clear Calc 127.1 09/12/20 05:29 Estim Creat Clear Calc Cancelled 09/12/20 05:29 Estimated GFR > 60 09/12/20 05:29 Estimated GFR Cancelled 09/12/20 05:29 Random Glucose 79 mg/dL (60-115) 09/12/20 05:29 Random Glucose Cancelled 09/12/20 05:29 Calcium 9.0 mg/dL (8.4-10.2) 09/12/20 05:29 Calcium Cancelled 09/12/20 05:29 Magnesium 1.8 mg/dL (1.6-2.6) 09/12/20 05:29 Total Bilirubin 1.1 mg/dL (0.0-1.0) H 09/12/20 05:29 Direct Bilirubin 0.6 mg/dL (0.0-0.5) H 09/12/20 05:29 AST 189 U/L (5-37) H 09/12/20 05:29 ALT 77 U/L (0-40) H 09/12/20 05:29 Alkaline Phosphatase 75 U/L (39-117) 09/12/20 05:29 Total Protein 7.6 g/dL (6.5-8.0) 09/12/20 05:29 Albumin 4.5 g/dL (3.5-5.0) 09/12/20 05:29 Discharge Plan Discharge Anticipated Discharge Date/Time: 09/13/20 15:35 Patient Disposition: Xfer Other Referrals: Physician,Unknown [Primary Care Provider] - Discharge Medications: No Action omeprazole 20 mg Capsule,Delayed Release(Dr/Ec) 20 mg PO BID@0630,1630 30 Days Qty: 60 RF: 0 folic acid 1 mg Tablet 1 mg PO DAILY 30 Days Qty: 30 RF: 0 thiamine mononitrate (vit B1) 100 mg Tablet 100 mg PO DAILY 30 Days Qty: 30 RF: 0 Discharge Orders: Discharge Order (Routine); Ordered 09/13/20 Ordered By: Negrito Bone Diet: advance to usual diet Activity on Discharge: As tolerated Discharge Date/Time: 09/13/20 19:43 Visit Report Forms: Patient Portal Discharge page Care Plan Goals: Prevent self harm Health Concerns: depression with suicidal ideation Plan of Treatment: To inpatient psych
== END 2020-09-13 19:43 | disposition other institution (70) | DRG 897 ==
PROVIDERS: Hospitalist; Nurse Practitioner Acute Care; Admitting Provider Internal Medicine; Visit Provider Internal Medicine
DX: F10.231 Alcohol dependence with withdrawal delirium (principal); R45.851 Suicidal ideations; K21.9 Gastro-esophageal reflux disease without esophagitis; F17.210 Nicotine dependence, cigarettes, uncomplicated; F32.9 Major depressive disorder, single episode, unspecified; D69.6 Thrombocytopenia, unspecified; Z79.899 Other long term (current) drug therapy
CPT/HCPCS: 36415; 80048; 80076; 83735; 85025; J2560

== ENCOUNTER 2020-09-13 19:50 | Inpatient (IN) | payer MEDICAID, SELFPAY ==
[2020-09-13] MEDS: PHENobarbitaL 30 MG TABLET PO (22:25)
[2020-09-13] MEDS: Acetaminophen 325 MG TABLET 650 MG PO (22:36)
[2020-09-13 22:39] VITALS: BMI 22.4
[2020-09-14] MEDS: Nicotine Polacrilex 2 MG GUM BUCCAL ×6 (05:27→22:34)
[2020-09-14 06:00] VITALS: BP 118/68; PULSE 72; TEMP 36.8
[2020-09-14] MEDS: Thiamine HCL 100 MG TABLET PO (09:28)
[2020-09-14] MEDS: PHENobarbitaL 30 MG TABLET PO ×3 (09:28→20:15)
[2020-09-14] MEDS: Folic Acid 1 MG TABLET PO (09:28)
--- NOTE | 2020-09-14 10:44 | P.HPPS_ITS ---
HPI Chief Complaint: depression ANXIETY ALCOHOL DEPENDANCE Sources of Information: patient interviewed, chart reviewed and crisis/core team assessment reviewed Additional Sources of Information: [place] [facility]PI Narrative: From Dr VILLALOBOS's recent H and P: 39 yo WM moved back to [place] after living in [facility] 9-10 months agos/p break up with jacy who someone else Presents with hx of heavy etoh use Came to er co chest pain and then became agitated and reported suicidal thinking to throw self in traffic.He reports that struggling with transition up to [place]. Pt developed severe ETOH delirium and was transferred to [facility] [place]. Heis now accepted back in transfer given depression/SI/severe ETOH use. Denies depression/psychosis/bipolar Past Psychiatric History: Never formally treated. Medical Evaluation Reviewed: Yes Reviewed DC summary from Dr Bone [facility] Medical History (Updated 09/14/20 @ 16:37 by Abundio Rosario) ETOH abuse GERD (gastroesophageal reflux disease) Neuropathy Family History: living with mother , sometimes with father and sometimes at friends Social History: has a job in [place] , recent move , break up with radha who someone else Substance History: Severe chronic ETOH use since age 18. Denies major consequences except loss of fiance my best friend . No DUI/job loss/medical. However ETOH hepatitis and low platelets noted. Trauma History: Denies Diagnostics Vital Signs (24Hr): Vital Signs - 24 hr 09/14/20 06:00 Temperature 98.2 F Pulse Rate 72 Blood Pressure 118/68 Body Mass Index 22.4 Meds/Allergies Meds Home Medications Acetaminophen (Acetaminophen 325 Mg Tablet) 650 mg PO Q6H PRN PRN Reason: Pain, Mild (Pain Scale 1-3) Last Admin: 09/13/20 22:36 Dose: 650 mg Documented by: Docusate Sodium (Docusate Sodium 100 Mg Capsule) 100 mg PO DAILY PRN PRN Reason: Constipation Folic Acid (Folic Acid 1 Mg Tablet) 1 mg PO DAILY [facility] Last Admin: 09/14/20 09:28 Dose: 1 mg Documented by: Haloperidol (Haloperidol 0.5 Mg Tablet) 0.5 mg PO Q6H PRN PRN Reason: Alcohol Withdrawal Medication (No Benzodiazepines) 1 each MISCELLANE DAILY [facility] Nicotine Polacrilex (Nicotine Polacrilex 2 Mg Gum) 2 mg BUCCAL Q1H PRN PRN Reason: withdrawl Last Admin: 09/14/20 16:16 Dose: 2 mg Documented by: Phenobarbital (Phenobarbital 30 Mg Tablet) 30 mg PO DAILY [facility]; Protocol Stop: 09/18/20 08:59 Last Admin: 09/14/20 09:28 Dose: 30 mg Documented by: Phenobarbital (Phenobarbital 30 Mg Tablet) 30 mg PO BID [facility]; Protocol Stop: 09/15/20 09:01 Last Admin: 09/14/20 09:30 Dose: 30 mg Documented by: Thiamine HCl (Thiamine Hcl 100 Mg Tablet) 100 mg PO DAILY [facility] Last Admin: 09/14/20 09:28 Dose: 100 mg Documented by: Allergies Allergies Allergy/AdvReac Type Severity Reaction Status Date / Time No Known Allergies Allergy Verified 08/17/20 18:21 Mental Status Exam Mental Status Exam Patient Appearance: Disheveled Patient Orientation: Person, Place, Time and Situation Level of Consciousness: Awake Patient Behavior: Appropriate Behavior Comments: no tremors Mood Description: Appropriate and Anxious Affect Description: Appropriate Ability to Follow Directions: Excellent Speech Pattern: Clear Memory Description: Intact Hallucinations: None Thought Process: Intact Thought Content: positive for Intact Judgement: Poor Assessment & Plan Assessment & Plan (1) Alcohol use disorder, severe, dependence: Status: Acute Code(s): F10.20 - Alcohol dependence, uncomplicated (2) Platelets decreased: Status: Acute Code(s): D69.6 - Thrombocytopenia, unspecified (3) Alcohol withdrawal: Status: Acute Code(s): F10.239 - Alcohol dependence with withdrawal, unspecified (4) GERD (gastroesophageal reflux disease): Status: Acute Code(s): K21.9 - Gastro-esophageal reflux disease without esophagitis Assessment and Plan: cv q15 collateral Ct meds. Defer SSRI. AA/[facility] Therapy Patient educated on: diagnosis Informed Consent: understands Reason for continued inpatient stay Substantial Risk for: harm to self and med/psych decompensation
[2020-09-14 11:30] VITALS: BP 129/77; PULSE 106
[2020-09-14 16:30] VITALS: BP 127/70; PULSE 80; TEMP 36.1
[2020-09-15 06:20] VITALS: BP 106/61; PULSE 75; RESP 16; TEMP 36.5; O2SAT 99
--- NOTE | 2020-09-15 07:49 | HO.PSYCHPN ---
Subjective Subjective Date of Service: 09/15/20 Reason For Visit: depression ANXIETY ALCOHOL DEPENDANCE Subjective Notes: Conditional Voluntary Interim History: Mood denied for depression. Will not Rx w SSRI. Educated re ETOH related liver effects/gastritis/low platelets. Encouraged to consider IOP. No Revia as elevated LFTs Medication Compliance: Yes Side effects from medications: No Attending Groups: Yes Review of Systems Gastrointestinal: Reports heartburn Comments: low platelets Mental Status Exam Mental Status Exam Patient Appearance: Disheveled Patient Orientation: Person, Place, Time and Situation Level of Consciousness: Awake Patient Behavior: Appropriate Behavior Comments: no tremors. Mild swetas noted Mood Description: Appropriate and Anxious Affect Description: Appropriate Ability to Follow Directions: Excellent Speech Pattern: Clear Memory Description: Intact Diagnostics Vital Signs (24Hr): Vital Signs - 24 hr 09/14/20 11:30 09/14/20 16:30 09/15/20 06:20 Temperature 97.0 F 97.7 F Pulse Rate 106 H 80 75 Respiratory Rate 16 Blood Pressure 129/77 127/70 106/61 Pulse Oximetry 99 Body Mass Index 22.4 Medications Medications Current Medications Generic Name Dose Route Start Last Admin Trade Name Freq PRN Reason Stop Dose Admin Acetaminophen 650 mg 09/13/20 20:42 09/13/20 22:36 Acetaminophen 325 Mg Tablet PO 650 mg Q6H PRN Administration Pain, Mild (Pain Scale 1-3) Docusate Sodium 100 mg 09/13/20 20:42 Docusate Sodium 100 Mg Capsule PO DAILY PRN Constipation Folic Acid 1 mg 09/14/20 09:00 09/14/20 09:28 Folic Acid 1 Mg Tablet PO 1 mg DAILY EILEEN Administration Haloperidol 0.5 mg 09/13/20 20:42 Haloperidol 0.5 Mg Tablet PO Q6H PRN Alcohol Withdrawal Medication 1 each 09/14/20 09:00 No Benzodiazepines MISCELLANE DAILY EILEEN Nicotine Polacrilex 2 mg 09/13/20 20:42 09/14/20 22:34 Nicotine Polacrilex 2 Mg Gum BUCCAL 2 mg Q1H PRN Administration withdrawl Phenobarbital 30 mg 09/16/20 09:00 09/14/20 09:28 Phenobarbital 30 Mg Tablet PO 09/18/20 08:59 30 mg DAILY EILEEN Administration Protocol Phenobarbital 30 mg 09/13/20 21:00 09/14/20 20:15 Phenobarbital 30 Mg Tablet PO 09/15/20 09:01 30 mg BID EILEEN Administration Protocol Thiamine HCl 100 mg 09/14/20 09:00 09/14/20 09:28 Thiamine Hcl 100 Mg Tablet PO 100 mg DAILY EILEEN Administration Allergies Allergies Allergy/AdvReac Type Severity Reaction Status Date / Time No Known Allergies Allergy Verified 08/17/20 18:21 Assessment & Plan Assessment & Plan (1) Alcohol use disorder, severe, dependence: Status: Acute Code(s): F10.20 - Alcohol dependence, uncomplicated (2) Platelets decreased: Status: Acute Code(s): D69.6 - Thrombocytopenia, unspecified (3) Alcohol withdrawal: Status: Acute Code(s): F10.239 - Alcohol dependence with withdrawal, unspecified (4) GERD (gastroesophageal reflux disease): Status: Acute Code(s): K21.9 - Gastro-esophageal reflux disease without esophagitis Assessment and Plan: cv q15 collateral Ct meds. Defer SSRI. AA/[facility] Group Therapy Greater than 50% of the session was spent on counseling and/or coordination of care
[2020-09-15] MEDS: Thiamine HCL 100 MG TABLET PO (08:55)
[2020-09-15] MEDS: PHENobarbitaL 30 MG TABLET PO (08:55)
[2020-09-15] MEDS: Folic Acid 1 MG TABLET PO (08:55)
[2020-09-15] MEDS: Nicotine Polacrilex 2 MG GUM BUCCAL ×6 (10:14→20:29)
[2020-09-15] MEDS: Omeprazole 20 MG CAPSULE.DR PO ×2 (13:40→16:31)
[2020-09-15] MEDS: Flu Vacc QS2020-21(6mos up)/PF 0.5 ML SYRINGE IM (13:41)
[2020-09-15] MEDS: Acetaminophen 325 MG TABLET 650 MG PO (15:19)
[2020-09-15 18:00] VITALS: BP 114/59; PULSE 83; TEMP 37.1
[2020-09-16 05:05] VITALS: BP 111/67; PULSE 112; RESP 16; TEMP 36.9; O2SAT 98
[2020-09-16] MEDS: Nicotine Polacrilex 2 MG GUM BUCCAL ×7 (05:11→22:28)
[2020-09-16] MEDS: Omeprazole 20 MG CAPSULE.DR PO ×2 (05:11→16:39)
[2020-09-16] MEDS: HaloperidoL 0.5 MG TABLET PO (05:11)
--- NOTE | 2020-09-16 07:29 | HO.PSYCHPN ---
Subjective Subjective Date of Service: 09/16/20 Reason For Visit: depression ANXIETY ALCOHOL DEPENDANCE Interim History: Mood denied for depression. Will not Rx w SSRI. Educated re ETOH related liver effects/gastritis/low platelets. Encouraged to consider IOP. No Revia as elevated LFTs. Mood stable. [place] Mon Mental Status Exam Mental Status Exam Patient Appearance: Disheveled Patient Orientation: Person, Place, Time and Situation Level of Consciousness: Awake Patient Behavior: Appropriate Behavior Comments: no tremors. Mild swetas noted Mood Description: Appropriate and Anxious Affect Description: Appropriate Ability to Follow Directions: Excellent Speech Pattern: Clear Memory Description: Intact Diagnostics Vital Signs (24Hr): Vital Signs - 24 hr 09/15/20 18:00 09/16/20 05:05 Temperature 98.7 F 98.4 F Pulse Rate 83 112 H Respiratory Rate 16 Blood Pressure 114/59 L 111/67 Pulse Oximetry 98 Body Mass Index 22.4 Medications Medications Current Medications Generic Name Dose Route Start Last Admin Trade Name Freq PRN Reason Stop Dose Admin Acetaminophen 650 mg 09/13/20 20:42 09/15/20 15:19 Acetaminophen 325 Mg Tablet PO 650 mg Q6H PRN Administration Pain, Mild (Pain Scale 1-3) Docusate Sodium 100 mg 09/13/20 20:42 Docusate Sodium 100 Mg Capsule PO DAILY PRN Constipation Folic Acid 1 mg 09/14/20 09:00 09/15/20 08:55 Folic Acid 1 Mg Tablet PO 1 mg DAILY EILEEN Administration Haloperidol 0.5 mg 09/13/20 20:42 09/16/20 05:11 Haloperidol 0.5 Mg Tablet PO 0.5 mg Q6H PRN Administration Alcohol Withdrawal Medication 1 each 09/14/20 09:00 No Benzodiazepines MISCELLANE DAILY EILEEN Nicotine Polacrilex 2 mg 09/13/20 20:42 09/16/20 05:11 Nicotine Polacrilex 2 Mg Gum BUCCAL 2 mg Q1H PRN Administration withdrawl Omeprazole 20 mg 09/15/20 10:50 09/16/20 05:11 Omeprazole 20 Mg Capsule. PO 20 mg BID@0630,1630 EILEEN Administration Phenobarbital 30 mg 09/16/20 09:00 09/14/20 09:28 Phenobarbital 30 Mg Tablet PO 09/18/20 08:59 30 mg DAILY EILEEN Administration Protocol Thiamine HCl 100 mg 09/14/20 09:00 09/15/20 08:55 Thiamine Hcl 100 Mg Tablet PO 100 mg DAILY EILEEN Administration Allergies Allergies Allergy/AdvReac Type Severity Reaction Status Date / Time No Known Allergies Allergy Verified 08/17/20 18:21 Assessment & Plan Assessment & Plan (1) Alcohol use disorder, severe, dependence: Status: Acute Code(s): F10.20 - Alcohol dependence, uncomplicated (2) Platelets decreased: Status: Acute Code(s): D69.6 - Thrombocytopenia, unspecified (3) Alcohol withdrawal: Status: Acute Code(s): F10.239 - Alcohol dependence with withdrawal, unspecified (4) GERD (gastroesophageal reflux disease): Status: Acute Code(s): K21.9 - Gastro-esophageal reflux disease without esophagitis Assessment and Plan: cv q15 collateral Ct meds. Defer SSRI. AA/[facility] Therapy Greater than 50% of the session was spent on counseling and/or coordination of care
[2020-09-16 07:49] VITALS: PULSE 91
[2020-09-16] MEDS: Thiamine HCL 100 MG TABLET PO (09:40)
[2020-09-16] MEDS: Folic Acid 1 MG TABLET PO (10:11)
[2020-09-16 18:00] VITALS: BP 111/72; PULSE 91; TEMP 37.1
[2020-09-17] MEDS: Omeprazole 20 MG CAPSULE.DR PO ×2 (06:12→16:27)
[2020-09-17 06:17] VITALS: BP 103/57; PULSE 94; RESP 16; TEMP 36.5; O2SAT 99
[2020-09-17] MEDS: Acetaminophen 325 MG TABLET 650 MG PO (07:01)
[2020-09-17] MEDS: Nicotine Polacrilex 2 MG GUM BUCCAL ×8 (07:02→22:48)
[2020-09-17 07:51] LABS: MANUAL DIFF FLAG NO
[2020-09-17 07:53] LABS: Basophils Absolute Auto 0.1 X10*3/uL (0.0-0.2); Eosinophils Absolute Auto 0.2 X10*3/uL (0.0-0.4); Eosinophils Percent Auto 2.8 % (0-4); Hematocrit 35.9 % (42-52); Hemoglobin 12.1 g/dl (14.0-18.0); Imm Gran Abs Auto 0.06 X10*3/uL (0.00-0.03); Imm Gran Pct Auto 0.9 % (0.0-0.4); Lymphocytes Absolute Auto 1.1 X10*3/uL (1.2-4.9); Lymphocytes Percent Auto 16.5 % (20-40); Mean Corpuscular HGB Conc 33.7 g/dl (31.0-36.0); Mean Corpuscular Hemoglobin 38.1 pg (27.0-33.0); Mean Platelet Volume 9.7 fL (9.4-12.4); Monocytes Absolute Auto 1.4 X10*3/uL (0.1-1.2); Monocytes Percent Auto 19.9 % (2-11); Neutrophils Percent Auto 58.9 % (45-73); Platelet Count 217 X10*3/uL (160-400); Red Blood Count 3.18 X10*6/uL (4.60-5.80); Red Cell Distribution Width 11.9 % (11.0-16.0); White Blood Count 6.8 X10*3/uL (4.8-10.8)
[2020-09-17 07:59] LABS: Mean Corpuscular Volume 112.9 fL (80-98)
[2020-09-17 08:25] LABS: Alanine Aminotransferase 59 U/L (0-40); Albumin Level 4.3 g/dL (3.5-5.0); Alkaline Phosphatase 75 U/L (39-117); Aspartate Amino Transferase 59 U/L (5-37); Bilirubin Direct 0.2 mg/dL (0.0-0.5); Bilirubin Total 0.3 mg/dL (0.0-1.0); Total Protein 7.3 g/dL (6.5-8.0)
[2020-09-17] MEDS: PHENobarbitaL 30 MG TABLET PO (08:47)
[2020-09-17] MEDS: Folic Acid 1 MG TABLET PO (08:47)
[2020-09-17] MEDS: Thiamine HCL 100 MG TABLET PO (08:47)
--- NOTE | 2020-09-17 08:57 | HO.PSYCHPN ---
Subjective Subjective Date of Service: 09/17/20 Reason For Visit: depression ANXIETY ALCOHOL DEPENDANCE Interim History: Mood stable. DC Mon. Labs improving Mental Status Exam Mental Status Exam Patient Appearance: Disheveled Patient Orientation: Person, Place, Time and Situation Level of Consciousness: Awake Patient Behavior: Appropriate Behavior Comments: no tremors. Mild swetas noted Mood Description: Appropriate and Anxious Affect Description: Appropriate Ability to Follow Directions: Excellent Speech Pattern: Clear Memory Description: Intact Diagnostics Vital Signs (24Hr): Vital Signs - 24 hr 09/16/20 18:00 09/17/20 06:17 Temperature 98.8 F 97.7 F Pulse Rate 91 94 Respiratory Rate 16 Blood Pressure 111/72 103/57 L Pulse Oximetry 99 Body Mass Index 22.4 Labs Results: 09/17/20 07:37 Labs: Laboratory Results - last 48 hr 09/17/20 09/17/20 07:37 07:37 WBC 6.8 RBC 3.18 L Hgb 12.1 L Hct 35.9 L MCV 112.9 H MCH 38.1 H MCHC 33.7 RDW 11.9 Plt Count 217 D MPV 9.7 Immature Gran % (Auto) 0.9 H Neut % (Auto) 58.9 Lymph % (Auto) 16.5 L Nuckolls % (Auto) 19.9 H Eos % (Auto) 2.8 Baso % (Auto) 1.0 Lymph # (Auto) 1.1 L N[place]olls # (Auto) 1.4 H Eos # (Auto) 0.2 Baso # (Auto) 0.1 Abs Immat Gran (auto) 0.06 H Absolute Neuts (auto) 4.0 Absolute Nucleated RBC 0.000 Nucleated RBC % (auto) 0.0 Total Bilirubin 0.3 Direct Bilirubin 0.2 AST 59 H ALT 59 H Alkaline Phosphatase 75 Total Protein 7.3 Albumin 4.3 Medications Medications Current Medications Generic Name Dose Route Start Last Admin Trade Name Freq PRN Reason Stop Dose Admin Acetaminophen 650 mg 09/13/20 20:42 09/17/20 07:01 Acetaminophen 325 Mg Tablet PO 650 mg Q6H PRN Administration Pain, Mild (Pain Scale 1-3) Docusate Sodium 100 mg 09/13/20 20:42 Docusate Sodium 100 Mg Capsule PO DAILY PRN Constipation Folic Acid 1 mg 09/14/20 09:00 09/17/20 08:47 Folic Acid 1 Mg Tablet PO 1 mg DAILY EILEEN Administration Haloperidol 0.5 mg 09/13/20 20:42 09/16/20 05:11 Haloperidol 0.5 Mg Tablet PO 0.5 mg Q6H PRN Administration Alcohol Withdrawal Medication 1 each 09/14/20 09:00 No Benzodiazepines MISCELLANE DAILY EILEEN Nicotine Polacrilex 2 mg 09/13/20 20:42 09/17/20 07:02 Nicotine Polacrilex 2 Mg Gum BUCCAL 2 mg Q1H PRN Administration withdrawl Omeprazole 20 mg 09/15/20 10:50 09/17/20 06:12 Omeprazole 20 Mg Capsule. PO 20 mg BID@0630,0520 EILEEN Administration Phenobarbital 30 mg 09/16/20 09:00 09/17/20 08:47 Phenobarbital 30 Mg Tablet PO 09/18/20 08:59 30 mg DAILY EILEEN Administration Protocol Thiamine HCl 100 mg 09/14/20 09:00 09/17/20 08:47 Thiamine Hcl 100 Mg Tablet PO 100 mg DAILY EILEEN Administration Allergies Allergies Allergy/AdvReac Type Severity Reaction Status Date / Time No Known Allergies Allergy Verified 08/17/20 18:21 Assessment & Plan Assessment & Plan (1) Alcohol use disorder, severe, dependence: Status: Acute Code(s): F10.20 - Alcohol dependence, uncomplicated (2) Platelets decreased: Status: Acute Code(s): D69.6 - Thrombocytopenia, unspecified (3) Alcohol withdrawal: Status: Acute Code(s): F10.239 - Alcohol dependence with withdrawal, unspecified (4) GERD (gastroesophageal reflux disease): Status: Acute Code(s): K21.9 - Gastro-esophageal reflux disease without esophagitis Assessment and Plan: cv q15 collateral Ct meds. Defer SSRI. AA/[facility] Group Therapy Greater than 50% of the session was spent on counseling and/or coordination of care
[2020-09-17 18:00] VITALS: BP 112/68; PULSE 78; TEMP 37.1
[2020-09-18 04:15] VITALS: BP 105/69; PULSE 110; RESP 16; TEMP 36.9; O2SAT 100
[2020-09-18] MEDS: Omeprazole 20 MG CAPSULE.DR PO (05:48)
[2020-09-18] MEDS: Nicotine Polacrilex 2 MG GUM BUCCAL ×3 (06:21→12:13)
--- NOTE | 2020-09-18 08:34 | P.DS_ITS ---
DS: Providers Provider Date of admission: 09/13/20 19:50 Primary care physician: Unknown Physician DS: Diagnosis Discharge Diagnosis (1) Alcohol use disorder, severe, dependence: Status: Acute (2) Platelets decreased: Status: Resolved (3) Alcohol withdrawal: Status: Resolved (4) GERD (gastroesophageal reflux disease): Status: Resolved DS: Medications Discharge Medications Home Medications: Previous Rx's Medication Instructions Recorded folic acid 1 mg PO DAILY 30 Days #30 tab 09/17/20 omeprazole 20 mg PO BID@0630,1630 30 Days #60 09/17/20 cap thiamine mononitrate (vit B1) 100 mg PO DAILY 30 Days #30 tab 09/17/20 Discharge Plan Discharge Patient Disposition: Home, Self-Care [facility] [Other] (Call to self-refer once insurance is set up) Virtual AA Meetings [Other] ([email or web address] Shantell Spring (therapist) [Other] - 09/19/20 1:00 pm (Telehealth appointment) Ariadna Chatman (psychiatrist) [Other] - 10/19/20 10:00 am (Telehealth a ppointment) Ariadna Chatman (psychiatrist) [Other] - 11/15/20 10:00 am (Telehealth appointment) [facility] [Other] ([address] [phone] OFFICE WILL CALL PT) Allie Mckay, [employer] [Nurse Practitioner] - 10/05/20 11:00 am (In-person appointment. Please bring insurance card or information. You will see the nurse at 11am and Allie Mckay at 11:30am) Physician,Unknown [Primary Care Provider] - Discharge Medications: New omeprazole 20 mg Capsule,Delayed Release(Dr/Ec) 20 mg PO BID@0630,1630 30 Days Qty: 60 RF: 0 folic acid 1 mg Tablet 1 mg PO DAILY 30 Days Qty: 30 RF: 0 thiamine mononitrate (vit B1) 100 mg Tablet 100 mg PO DAILY 30 Days Qty: 30 RF: 0 Discharge Orders: Discharge Order (Routine); Ordered 09/18/20 Ordered By: Abundio Rosario Diet: regular diet Activity on Discharge: As tolerated Stand Alone Forms: Community Support Discharge Date/Time: 09/18/20 13:25 Other Ambulatory Orders: Liver Panel (Routine) Timeframe: 2 Weeks Facility: [facility] - Location: Laboratory Ordered By: Abundio Rosario Activity Restrictions/Additional Instructions: When liver function improve explore Naltrexone/Vivitrol with OP provider. Visit Report Forms: Patient Portal Discharge page Care Plan Goals: Maintain abstinence/sobriety Health Concerns: Alcohol use Plan of Treatment: [facility] AA Data Data Completed and Pending Completed studies during hospitalization [Text1]: 09/17/20 09/17/20 07:37 07:37 WBC 6.8 RBC 3.18 L Hgb 12.1 L Hct 35.9 L MCV 112.9 H MCH 38.1 H MCHC 33.7 RDW 11.9 Plt Count 217 D MPV 9.7 Immature Gran % (Auto) 0.9 H Neut % (Auto) 58.9 Lymph % (Auto) 16.5 L Smith % (Auto) 19.9 H Eos % (Auto) 2.8 Baso % (Auto) 1.0 Lymph # (Auto) 1.1 L Smith # (Auto) 1.4 H Eos # (Auto) 0.2 Baso # (Auto) 0.1 Abs Immat Gran (auto) 0.06 H Absolute Neuts (auto) 4.0 Absolute Nucleated RBC 0.000 Nucleated RBC % (auto) 0.0 Total Bilirubin 0.3 Direct Bilirubin 0.2 AST 59 H ALT 59 H Alkaline Phosphatase 75 Total Protein 7.3 Albumin 4.3 DS: Summary Hospital Course Hospital Course: 39 yo WM moved back to [place] after living in [facility] 9-10 months ago s/p break up with gf who someone else Presents with hx of etoh use Came to er co chest pain and then became agitated and reported suicidal thinking to throw self in traffic He reports that struggling with transition up to [place]. Pt was initially admitted to but was transferred to [facility] bc of severe Alcohol withdrawal delirium, AH + VH+. He was stabilized with Phenobarbital protocol and readmitted to . He was much improved on his return to . Residual WD Sx soon resolved and Phenobarb was DCd. He was extensively educated re ETOH use and its consequernces. LFTs and platelets also recovered and LFTs were trending better at [place]. Pt was referred to AA/ IOP and [facility] for Vivitrol. No antidepressants were started as were not indicated. Pt was pleasant and open to suggestions thrioughout his stay. Naltrexone/Vivitrol can be started after LFTs normalize. Repeat LFT were ordered in 2 weeks Time spent discussing smoking cessation with patient: more than 10 minutes Status at Discharge Overall status at discharge: patient is progressing back to baseline Time Spent with Patient Time attestation: Total time spent providing and/or coordinating discharge services: Time spent: Greater than 30 minutes
[2020-09-18] MEDS: Folic Acid 1 MG TABLET PO (08:40)
[2020-09-18] MEDS: Thiamine HCL 100 MG TABLET PO (08:40)
== END 2020-09-18 13:25 | disposition home or self-care (01) | DRG 775 ==
PROVIDERS: Admitting Provider Psychiatry & Neurology Psychiatry; Visit Provider Psychiatry & Neurology Psychiatry
DX: F10.231 Alcohol dependence with withdrawal delirium (principal); D69.6 Thrombocytopenia, unspecified; R45.851 Suicidal ideations; F17.210 Nicotine dependence, cigarettes, uncomplicated; K21.9 Gastro-esophageal reflux disease without esophagitis; Z71.6 Tobacco abuse counseling; Z23 Encounter for immunization; Z79.899 Other long term (current) drug therapy
CPT/HCPCS: 36415; 80076; 85025; 90686; 99223; 99232; 99239

== ENCOUNTER → 2020-10-05 14:57 | Outpatient (BNVA) | payer MEDICAID, SELFPAY | PROVIDERS: Visit Provider Nurse Practitioner Psychiatric/Mental Health | DX: F19.90 Other psychoactive substance use, unspecified, uncomplicated (principal) | CPT/HCPCS: 99202; 99211 ==

== ENCOUNTER 2022-04-27 15:13 | Observation (INO) | payer MEDICAID, SELFPAY ==
--- NOTE | ~2022-04-27 | US_ITS ---
EXAMINATION: US ABDOMEN LIMITED CLINICAL INFORMATION: Transaminitis. COMPARISON: None TECHNIQUE: Real-time imaging of the right upper quadrant abdominal viscera. FINDINGS: PANCREAS: The visualized portion of the pancreatic head and body is unremarkable. The remainder of the pancreas is obscured from visualization. LIVER: Normal in size and contour. There is diffusely increased liver parenchymal echogenicity consistent with steatosis. In the left hepatic lobe, a 1.7 x 0.9 x 1.3 cm ill-defined hypoechoic focus is documented with internal vascularity. Trace perihepatic free fluid. Incidental note is made of findings suggestive of thrombosis of the left intrahepatic portal vein. The right intrahepatic portal vein and main portal vein demonstrate normal color-flow. GALLBLADDER: Normal. The gallbladder is physiologically distended without evidence of stones, sludge, polyps, wall thickening or pericholecystic fluid. COMMON BILE DUCT: Normal in caliber measuring 0.3 cm in diameter. RIGHT KIDNEY: Normal in size, contour and echogenicity. Normal renal cortical thickness. No hydronephrosis. No renal calculi. The kidney measures 11.5 cm in maximum dimension. A 0.6 x 0.4 x 0.5 cm simple cyst is noted in the lower pole. FREE FLUID: None. US/US abdomen limited IMPRESSION: Diffuse hepatic steatosis. An indeterminate 1.7 x 0.9 x 1.3 cm hypoechoic lesion in the posterior left hepatic lobe. Suspected left intrahepatic portal venous thrombosis. Recommend dynamic liver MRI correlation for further evaluation of these findings. No evidence of cholelithiasis or acute cholecystitis. No biliary ductal dilatation. The findings were discussed with Dr. Bone on 04/28/2022 at 10:20 AM.
[2022-04-27 15:23] VITALS: BP 142/78; BP 167/90; PULSE 81; PULSE 92; RESP 18; TEMP 36.8; O2SAT 96; O2SAT 98; BMI 18.6
--- NOTE | 2022-04-27 15:26 | ED_ITS ---
HPI - General Adult General Chief complaint: Nausea/Vomiting/Diarrhea Stated complaint: nv Time Seen by Provider: 04/27/22 15:25 Source: patient and EMS Mode of arrival: EMS Limitations: no limitations History of Present Illness HPI narrative: Patient is a 41 year old male presenting to the emergency department today feeling generally unwell after being out in the sun all day yesterday. Patient states that he has had some nausea and vomiting. Patient denies any current dizziness, lightheadedness, abdominal pain, fever, chills, blurry vision, double vision, loss of vision, chest pain, difficulty breathing, shortness of breath, back pain, night sweats, pain with urination, increased urinary frequency, increased urinary urgency, blood in his urine or stool, syncope or a near syncopal episode, recent trauma or falls, bowel incontinence, bladder incontinence, bowel retention, bladder retention, or any other complaints at this time. Onset (ago): day(s) (1) Severity: mild Relieving factors: none Exacerbating factors: none Associated symptoms: nausea/vomiting Treatments prior to arrival: none Related Data Previous Rx's Medication Instructions Recorded folic acid 1 mg tablet 1 mg PO DAILY 30 days #30 tabs 09/17/20 omeprazole 20 mg capsule,delayed 20 mg PO BID@0630,1630 30 days #60 09/17/20 release caps thiamine mononitrate (vit B1) 100 100 mg PO DAILY 30 days #30 tabs 09/17/20 mg tablet naltrexone 50 mg tablet 50 mg PO DAILY #30 tabs 10/05/20 Allergies Allergy/AdvReac Type Severity Reaction Status Date / Time No Known Allergies Allergy Verified 10/05/20 15:39 Review of Systems Constitutional: Constitutional: Reports no additional constitutional complaints, Denies chills, Denies fever(s) and Denies night sweats Eyes: Eyes: Reports no additional eye complaints, Denies blurry vision, Denies change in vision, Denies diplopia, Denies eye discharge, Denies loss of vision a nd Denies eye pain ENT: Denies dizziness Cardiovascular: Cardiovascular: Reports no additional cardiovascular compla ints, Denies chest pain, Denies lightheadedness, Denies Loss of Consciousness and Denies dyspnea Respiratory: Respiratory: Reports no additional respiratory complaints and Denies dyspnea Gastrointestinal: Gastrointestinal: Reports no additional gastrointestinal complaints, Denies abdominal pain, Denies melena, Denies hematochezia, Denies change in bowel habits, Denies change in stool character, Reports nausea and Reports vomiting Genitourinary: Genitourinary: Reports no additional male genitourinary complaints, Denies hematuria, Denies oliguria, Denies difficulty urinating, Denies dysuria, Denies urinary frequency, Denies urinary hesitancy, Denies urinary incontinence and Denies urinary urgency Musculoskeletal: Musculoskeletal: Reports no additional musculoskeletal complaints, Denies numbness and Denies tingling Neurologic: Denies dizziness, Denies loss of vision, Denies numbness and Denies tingling Psychiatric: Psychiatric: Reports no additional psychiatric complaints Endocrine: Endocrine: Reports no additional endocrine complaints Hematologic/Lymphatic: Hematologic/Lymphatic: Reports no additional hematologic/lymphatic complaints Allergic/Immunologic: Allergic/Immunologic: Reports no additional allergic/immunologic complaints PMFSH Past Medical History Attestation statement: The following information was validated with the patient. Source: old records reviewed Medical History ETOH abuse GERD (gastroesophageal reflux disease) Neuropathy Social History Social History Household Members: Family Housing: Apartment Do you presently have visiting nurse or other home services: No Alcohol intake: current Cigarette Packs Per Day: 1 Cigarettes Per Day: 20.0 Years Smoked: 25 Second Hand Smoke Exposure: Yes Substance Use Type: Marijuana Advance Directives: No Advance Directives Information Provided: No service: No Current occupational status: unemployed Sexual orientation: Straight/Heterosexual Physical Exam ED Vital Signs: Vital Signs - 24 hr 04/27/22 15:23 Temperature 98.3 F Pulse Rate 81 Respiratory Rate 18 Blood Pressure 167/90 H Pulse Oximetry 96 Oxygen Delivery Method Room Air BMI result Body Mass Index 18.6 Const General: cooperative, no acute distress, alert and awake Nutritional Appearance: well nourished Orientation/consciousness: patient oriented x3 Limitations: no limitations HENMT Head: Yes normal to inspection and Yes atraumatic Ears: hearing grossly normal bilaterally and external ears normal General nose exam: Normal external nose present, no nasal discharge noted and no epistaxis Face and sinus: Yes normal facial exam, No abrasion and No laceration Mouth: Normal oral and palatal mucosa present, no drooling and no muffled voice Eyes General: appearance normal, both eyes and all related structures Periorbital: periorbital findings normal Eyelids: Yes eyelids normal Conjunctivae: conjunctivae normal Pupils: Equal, round and reactive pupils present EOM: EOMs intact bilaterally Neck Neck: Yes normal visual inspection, Yes full ROM and Yes no lymphadenopathy Chest Chest palpation & inspection: normal inspection of the chest Resp Effort & Inspection: normal respiratory effort and able to speak in complete sentences Auscultation: clear to auscultation bilaterally Cardio Rate: regular rate Rhythm: regular rhythm GI Inspection: Yes normal to inspection Palpation (GI): Soft to palpation, not firm, nontender, no guarding and not rigid Neuro General: patient oriented x3 and moves all extremities Cranial nerves: Yes Equal, round and reactive pupils present Cognition (Neuro): normal cognition Motor exam (neuro): 5/5 motor strength present throughout Sensory Exam: Normal double simultaneous stimulation for sensation Coordination: [id number] test normal Extrem General: Yes normal to inspection, Yes full ROM and Yes capillary refill normal Psych Appearance: grossly normal Mental Status: mental status grossly normal Affect: normal affect Attitude: cooperative Thought process: Normal thought process present Thought content: Normal thought content present Insight: Good insight present (Psych) Medical Decision Making MDM Narrative Medical decision making narrative: Patient is a 41 year old male presenting to the emergency department today with nausea and feeling generally unwell. Patient's physical exam was unremarkable. Patient's blood work showed a decreased potassium of 2.9 with elevated AST of 153, an elevated ALT of 73, and an elevated total CK of 1,396. Patient's EKG was concerning for Wellens Syndrome however, I spoke to Dr. Jackson, the small business consultant, who stated that this is likely secondary to the patient's hypokalemia and does not need any additional management at this time. I explained my physical exam findings as well as all test results to the patient. I answered all questions asked by the patient. Patient received IV potassium, PO potassium, IV fluids, and PO Ativan. I spoke to Dr. Allen, who agreed to hospital admission of this patient. Patient verbalized agreement and understanding with this treatment plan and admission. Differential Diagnosis Differential Diagnosis: Rhabdomyalisis, alcohol withdrawal Medical Records Medical records reviewed: Yes I reviewed the patient's medical records. Lab Data Lab results reviewed: Yes I reviewed the patient's lab results. Result diagrams: 04/27/22 15:50 04/27/22 15:50 Labs: Lab Results 04/27/22 04/27/22 04/27/22 Range/Units 15:50 15:50 15:50 WBC 4.7 L (4.8-10.8) X10*3/uL RBC 3.28 L (4.60-5.80) X10*6/uL Hgb 11.8 L (14.0-18.0) g/dl Hct 33.5 L (42.0-52.0) % MCV 102.1 H (80.0-98.0) fL MCH 36.0 H (27.0-33.0) pg MCHC 35.2 (31.0-36.0) g/dl RDW 15.0 (11.0-16.0) % Plt Count 44 L (160-400) X10*3/uL MPV 12.1 (9.4-12.4) fL Immature Gran % (Auto) 0.4 (0.0-0.4) % Neut % (Auto) 70.3 (45-73) % Lymph % (Auto) 15.3 L (20-40) % Parmer % (Auto) 13.6 H (2-11) % Eos % (Auto) 0.2 (0-4) % Baso % (Auto) 0.2 (0-2) % Lymph # (Auto) 0.7 L (1.2-4.9) X10*3/uL Parmer # (Auto) 0.6 (0.1-1.2) X10*3/uL Eos # (Auto) 0.0 (0.0-0.4) X10*3/uL Baso # (Auto) 0.0 (0.0-0.2) X10*3/uL Abs Immat Gran (auto) 0.02 (0.00-0.03) X10*3/uL Absolute Neuts (auto) 3.3 (2.0-8.3) x10*3/uL Absolute Nucleated RBC 0.000 (0.0-0.012) X10*3/uL Nucleated RBC % (auto) 0.0 (0.0-0.2) /100WBC Smear Tech's Comments VERIFIED Sodium 135 (135-145) mmol/L Potassium 2.9 L (3.3-5.1) mmol/L Chloride 87 L (96-108) mmol/L Carbon Dioxide 31 H (22-29) mmol/L Anion Gap 20 (12-20) BUN 27 H (9-16) mg/dL Creatinine 0.91 (0.5-1.4) mg/dL Estim Creat Clear Calc 87.2 Estimated GFR > 60 Random Glucose 99 (60-115) mg/dL Calcium 9.0 (8.4-10.2) mg/dL Magnesium 1.6 (1.6-2.6) mg/dL Total Bilirubin 1.8 H (0.0-1.0) mg/dL AST 153 H (5-37) U/L ALT 73 H (0-40) U/L Alkaline Phosphatase 87 (39-117) U/L Total Creatine Kinase 1396 H (38-174) U/L Troponin I High Sens 6.8 (<3.5-35.0) ng/L Total Protein 8.5 H (6.5-8.0) g/dL Albumin 4.6 (3.5-5.0) g/dL COVID-19 (MUSHTAQ) (Negative) COVID-19 Clin Com 04/27/22 04/27/22 Range/Units 15:50 17:35 WBC (4.8-10.8) X10*3/uL RBC (4.60-5.80) X10*6/uL Hgb (14.0-18.0) g/dl Hct (42.0-52.0) % MCV (80.0-98.0) fL MCH (27.0-33.0) pg MCHC (31.0-36.0) g/dl RDW (11.0-16.0) % Plt Count (160-400) X10*3/uL MPV (9.4-12.4) fL Immature Gran % (Auto) (0.0-0.4) % Neut % (Auto) (45-73) % Lymph % (Auto) (20-40) % Parmer % (Auto) (2-11) % Eos % (Auto) (0-4) % Baso % (Auto) (0-2) % Lymph # (Auto) (1.2-4.9) X10*3/uL Parmer # (Auto) (0.1-1.2) X10*3/uL Eos # (Auto) (0.0-0.4) X10*3/uL Baso # (Auto) (0.0-0.2) X10*3/uL Abs Immat Gran (auto) (0.00-0.03) X10*3/uL Absolute Neuts (auto) (2.0-8.3) x10*3/uL Absolute Nucleated RBC (0.0-0.012) X10*3/uL Nucleated RBC % (auto) (0.0-0.2) /100WBC Smear Tech's Comments Sodium (135-145) mmol/L Potassium (3.3-5.1) mmol/L Chloride (96-108) mmol/L Carbon Dioxide (22-29) mmol/L Anion Gap (12-20) BUN (9-16) mg/dL Creatinine (0.5-1.4) mg/dL Estim Creat Clear Calc Estimated GFR Random Glucose (60-115) mg/dL Calcium (8.4-10.2) mg/dL Magnesium (1.6-2.6) mg/dL Total Bilirubin (0.0-1.0) mg/dL AST (5-37) U/L ALT (0-40) U/L Alkaline Phosphatase (39-117) U/L Total Creatine Kinase (38-174) U/L Troponin I High Sens 7.5 (<3.5-35.0) ng/L Total Protein (6.5-8.0) g/dL Albumin (3.5-5.0) g/dL COVID-19 (MUSHTAQ) Negative (Negative) COVID-19 Clin Com See Note ECG Data Attestation: I personally reviewed and interpreted this ECG as follows: Prior ECG tracings: available for review Interpretation: Vent. Rate: 069 BPM ? ? Atrial Rate: 069 BPM P-R Int: 124 ms? QRS Dur: 092 ms QT Int: 468 ms ? ? ? P-R-T Axes: 034 088 078 degrees QTc Int: 501 ms ? Normal sinus rhythm ST & T wave abnormality, consider anterior ischemia Prolonged QT Abnormal ECG When compared with ECG of 08-SEP-2020 11:34, T wave inversion now evident in Anterior leads DD/ 1532 Dr. Phelps expressed concern of Wellens syndrome. Dr. Jackson consulted. Repeat EKG at: 1638 Vent. Rate: 061 BPM ? ? Atrial Rate: 061 BPM P-R Int: 120 ms? QRS Dur: 094 ms QT Int: 462 ms ? ? ? P-R-T Axes: 010 083 076 degrees QTc Int: 465 ms ? Normal sinus rhythm ST & T wave abnormality, consider anterior ischemia Prolonged QT Abnormal ECG When compared with ECG of 27-APR-2022 15:32, No significant change was found DD/ 1638 EKG unchanged from earlier. Dr. Jackson believes the patient's EKG changes are secondary to hypokalemia and not consistent with cardiac ischemia. Critical Care Time Critical Care Time Critical Care Time: Yes Total Critical Care Time: 30 Attestation: I spent 30 minutes of Critical Care Time with this patient. This does not include time spent on separately reported billable procedures. Discharge Plan Discharge Clinical Impression: Hypokalemia, ETOH abuse Patient Disposition: Admitted As Inpatient
--- NOTE | 2022-04-27 15:30 | ECG_ITS ---
Test Reason : WEAKNESS Blood Pressure : / mmHG Vent. Rate : 069 BPM Atrial Rate : 069 BPM P-R Int : 124 ms QRS Dur : 092 ms QT Int : 468 ms P-R-T Axes : 034 088 078 degrees QTc Int : 501 ms Normal sinus rhythm ST & T wave abnormality, consider anterior ischemia vs electrolyte abnormalities Prolonged QT Abnormal ECG When compared with ECG of 08-SEP-2020 11:34, T wave inversion now evident in Anterior leads Referred By: Milagro Pride Electronically Signed By:Pratik Jackson
[2022-04-27] MEDS: LORazepam 1 MG TABLET 2 MG PO (16:00)
[2022-04-27 16:01] LABS: Eosinophils Percent Auto 0.2 % (0-4); Hemoglobin 11.8 g/dl (14.0-18.0); PLT CLUMP 1; SCAN SMEAR FLAG 1
[2022-04-27 16:03] LABS: Basophils Percent Auto 0.2 % (0-2); Hematocrit 33.5 % (42.0-52.0); Imm Gran Abs Auto 0.02 X10*3/uL (0.00-0.03); Imm Gran Pct Auto 0.4 % (0.0-0.4); Lymphocytes Absolute Auto 0.7 X10*3/uL (1.2-4.9); Lymphocytes Percent Auto 15.3 % (20-40); MANUAL DIFF FLAG SCAN; Mean Corpuscular HGB Conc 35.2 g/dl (31.0-36.0); Mean Corpuscular Volume 102.1 fL (80.0-98.0); Mean Platelet Volume 12.1 fL (9.4-12.4); Monocytes Absolute Auto 0.6 X10*3/uL (0.1-1.2); Monocytes Percent Auto 13.6 % (2-11); Neutrophils Absolute Auto 3.3 x10*3/uL (2.0-8.3); Neutrophils Percent Auto 70.3 % (45-73); Red Blood Count 3.28 X10*6/uL (4.60-5.80)
[2022-04-27 16:11] LABS: COVID-19 Test Negative (Negative); IDNOW Serial# 55D5AD1C
[2022-04-27 16:24] LABS: Platelet Count 44 X10*3/uL (160-400); SLIDE REVIEW VERIFIED; Troponin-I High Sensitivity 6.8 ng/L (<3.5-35.0); White Blood Count 4.7 X10*3/uL (4.8-10.8)
[2022-04-27 16:38] LABS: Alanine Aminotransferase 73 U/L (0-40); Albumin Level 4.6 g/dL (3.5-5.0); Alkaline Phosphatase 87 U/L (39-117); Anion Gap 20 (12-20); Aspartate Amino Transferase 153 U/L (5-37); Bilirubin Total 1.8 mg/dL (0.0-1.0); Blood Urea Nitrogen 27 mg/dL (9-16); Carbon Dioxide 31 mmol/L (22-29); Chloride 87 mmol/L (96-108); Creatinine Clr Calc Pharmacy 87.2; Estimated Glomerular Filt Rate > 60; Glucose Random 99 mg/dL (60-115); Magnesium 1.6 mg/dL (1.6-2.6); Potassium 2.9 mmol/L (3.3-5.1); Sodium 135 mmol/L (135-145); Total Protein 8.5 g/dL (6.5-8.0)
--- NOTE | 2022-04-27 16:44 | ECG_ITS ---
Test Reason : REPEAT EKG Blood Pressure : / mmHG Vent. Rate : 061 BPM Atrial Rate : 061 BPM P-R Int : 120 ms QRS Dur : 094 ms QT Int : 462 ms P-R-T Axes : 010 083 076 degrees QTc Int : 465 ms Normal sinus rhythm ST & T wave abnormality, consider anterior ischemia Prolonged QT Abnormal ECG When compared with ECG of 27-APR-2022 15:32, No significant change was found Referred By: Milagro Pride Electronically Signed By:Pratik Jackson
[2022-04-27] MEDS: Potassium Chloride ER 20 MEQ TAB.ER.PRT PO (17:17)
[2022-04-27] MEDS: Potassium Chloride/H20 10 MEQ/100 ML PIGGYBACK 100 MEQ IV ×2 (17:17→19:33)
[2022-04-27 17:59] LABS: Troponin-I High Sensitivity 7.5 ng/L (<3.5-35.0)
--- NOTE | 2022-04-27 19:08 | P.HPHOSP_ITS ---
History of Present Illness Date of Service: 04/27/22 Chief Complaint: Nausea/vomiting 41-year-old male with a past medical history of alcohol abuse, GERD, history of alcoholic hepatitis; presented to the hospital today with a chief complaint of nausea/vomiting. Patient reported that for the past 1 day he has been not feeling well. Yesterday he was in the sun all day. Mentioned that he has been trying to hydrate himself. Patient denies any chest pain or palpitations, shortness of breath. Denies any diarrhea. Denies any abdominal pain. Mentions that he drinks alcohol intermittently, last drink was on last . Denies any fever chills cough or sputum production. Review of all other systems is negative except mentioned above ER course: Per ER team patient appears to be dehydrated; on labs noted to have elevated CPK, potassium 2.9, serum bicarb elevated; on EKG noted to have findings concerning for wellens syndrome; discussed with Dr. Jackson from Cardiology- mentioned changes appears to be likely secondary to collateral a derangement; no concern for acute ischemia, recommended product replacement. Patient was given potassium supplementation. Also received IV fluids. Patient troponin was 6.8-7.5; admitted to the hospital for further management PMFSH Medical History ETOH abuse GERD (gastroesophageal reflux disease) Neuropathy Pertinent family history: Mother Has diabetes Social History Household Members: Family Housing: Apartment Do you presently have visiting nurse or other home services: No Alcohol intake: current Cigarette Packs Per Day: 1 Cigarettes Per Day: 20.0 Years Smoked: 25 Second Hand Smoke Exposure: Yes Substance Use Type: Marijuana Advance Directives: No Advance Directives Information Provided: No service: No Current occupational status: unemployed Sexual orientation: Straight/Heterosexual Meds Allergies Allergy/AdvReac Type Severity Reaction Status Date / Time No Known Allergies Allergy Verified 10/05/20 15:39 Active Medications: Current Medications Potassium Chloride () 10 meq in 100 mls @ 100 mls/hr IV Q1H EILEEN Stop: 04/27/22 19:14 Last Admin: 04/27/22 17:17 Dose: 100 mls/hr Sodium Chloride (Ns) 1,000 mls @ 999 mls/hr IV .Q1H1M EILEEN Stop: 04/27/22 20:15 Pharmacy Consult (Consult Rx Perform Med Rec) 1 each MISCELLANE ONCE PRN PRN Reason: Consult order Physical Exam Vital Signs and Narrative: Vital Signs: Last Vital Signs Temp 98.3 F 04/27/22 15:23 Pulse 81 04/27/22 15:23 Resp 18 04/27/22 15:23 BP 167/90 H 04/27/22 15:23 Pulse Ox 96 04/27/22 15:23 O2 Del Method 04/27/22 15:23 BMI result Body Mass Index 18.6 Gen: Appears be in no acute distress HEENT: NCAT, dry mucosa. Pulmonary: Vesicular breath sounds, fair air entry CVS: Normal S1-S2 Abdomen: BS+, Soft, Nontender Extremities: Warm well perfused Neuro: Alert and awake. Results Labs CBC and Chem 7: 04/27/22 15:50 04/27/22 15:50 Labs: Laboratory Results - last 24 hr 04/27/22 04/27/22 04/27/22 15:50 15:50 15:50 MCV 102.1 H MCH 36.0 H MCHC 35.2 RDW 15.0 Plt Count 44 L MPV 12.1 Immature Gran % (Auto) 0.4 Neut % (Auto) 70.3 Lymph % (Auto) 15.3 L Hitchcock % (Auto) 13.6 H Eos % (Auto) 0.2 Baso % (Auto) 0.2 Lymph # (Auto) 0.7 L Hitchcock # (Auto) 0.6 Eos # (Auto) 0.0 Baso # (Auto) 0.0 Abs Immat Gran (auto) 0.02 Absolute Neuts (auto) 3.3 Absolute Nucleated RBC 0.000 Nucleated RBC % (auto) 0.0 Smear Tech's Comments VERIFIED Anion Gap 20 Estim Creat Clear Calc 87.2 Estimated GFR > 60 Random Glucose 99 Calcium 9.0 Magnesium 1.6 Total Bilirubin 1.8 H AST 153 H ALT 73 H Alkaline Phosphatase 87 Total Creatine Kinase 1396 H Troponin I High Sens 6.8 Total Protein 8.5 H Albumin 4.6 COVID-19 (MUSHTAQ) COVID-19 Clin Com 04/27/22 04/27/22 15:50 17:35 MCV MCH MCHC RDW Plt Count MPV Immature Gran % (Auto) Neut % (Auto) Lymph % (Auto) Hitchcock % (Auto) Eos % (Auto) Baso % (Auto) Lymph # (Auto) Hitchcock # (Auto) Eos # (Auto) Baso # (Auto) Abs Immat Gran (auto) Absolute Neuts (auto) Absolute Nucleated RBC Nucleated RBC % (auto) Smear Tech's Comments Anion Gap Estim Creat Clear Calc Estimated GFR Random Glucose Calcium Magnesium Total Bilirubin AST ALT Alkaline Phosphatase Total Creatine Kinase Troponin I High Sens 7.5 Total Protein Albumin COVID-19 (MUSHTAQ) Negative COVID-19 Clin Com See Note Assessment and Plan (1) Hypokalemia: Status: Acute (2) ETOH abuse: Status: Acute Plan 41-year-old male with a past medical history of alcohol abuse, GERD, history of alcoholic hepatitis; presented to the hospital today with a chief complaint of nausea/vomiting. Nausea/vomiting: Likely gastritis in the setting of alcohol use. Pepcid b.i.d.. Supportive care. Advance diet as tolerated. Hypokalemia: Monitor on telemetry. Repleted. ? Question EKG changes: Cardiology was aware-> Denies wellens syndrome. Troponins negative. Patient denies any chest pain. Elevated CPK: Patient on gentle IV fluids. Transaminitis: Likely in setting of alcohol use. Will also obtain acute hepatitis panel, right upper quadrant ultrasound. Alcohol abuse: No obvious signs of withdrawal currently. Monitor on CIWA protocol. Ativan p.r.n.. Thiamine folate and multivitamins. DVT prophylaxis: Subcu heparin Code status: Full code Quality Stroke Does the patient have a stroke diagnosis?: No VTE Prior VTE?: No VTE Risk Level:: Medical - moderate - high VTE Device Contraindication: Treatment Not Indicated VTE Drug Contraindication: N/A - Med Ordered
[2022-04-27] MEDS: Dextrose 5 % and 0.45 % NaCl 1,000 ML 100 ML IVCONT (22:35)
[2022-04-27] MEDS: Famotidine 20 MG TABLET PO (22:35)
[2022-04-27] MEDS: Heparin Sodium,Porcine 5,000 UNIT/ML VIAL 5000 UNIT SUBCUT (22:35)
[2022-04-27 22:47] VITALS: BP 124/86; PULSE 79; RESP 16; TEMP 36.8; O2SAT 98
--- NOTE | 2022-04-27 22:51 | PC.NURSE ---
resting quietly. denies withdrawal sx. up to br with steady gait. skin pwd. axox3. nsr on monitor. awaits bed no complaints at this time.
--- NOTE | 2022-04-28 | ECG_ITS ---
Test Reason : abnormal labs Blood Pressure : / mmHG Vent. Rate : 057 BPM Atrial Rate : 057 BPM P-R Int : 124 ms QRS Dur : 092 ms QT Int : 444 ms P-R-T Axes : 005 085 062 degrees QTc Int : 432 ms Sinus bradycardia Otherwise normal ECG When compared with ECG of 27-APR-2022 16:38, T wave inversion no longer evident in Anterior leads Referred By: Negrito Bone Electronically Signed By:Pratik Jackson
[2022-04-28] MEDS: Potassium Chloride Packet 20 MEQ PACKET 40 MEQ PO (02:08)
[2022-04-28] MEDS: Heparin Sodium,Porcine 5,000 UNIT/ML VIAL 5000 UNIT SUBCUT (03:02)
[2022-04-28 04:00] VITALS: BP 142/84; PULSE 95; RESP 16; TEMP 36.6; O2SAT 97
[2022-04-28 06:52] LABS: MANUAL DIFF FLAG NO
[2022-04-28 06:55] LABS: Basophils Percent Auto 0.2 % (0-2); Eosinophils Percent Auto 0.7 % (0-4); Hematocrit 34.7 % (42.0-52.0); Hemoglobin 12.1 g/dl (14.0-18.0); Imm Gran Abs Auto 0.01 X10*3/uL (0.00-0.03); Imm Gran Pct Auto 0.2 % (0.0-0.4); Lymphocytes Absolute Auto 1.2 X10*3/uL (1.2-4.9); Lymphocytes Percent Auto 27.3 % (20-40); Mean Corpuscular HGB Conc 34.9 g/dl (31.0-36.0); Mean Corpuscular Hemoglobin 36.4 pg (27.0-33.0); Mean Corpuscular Volume 104.5 fL (80.0-98.0); Mean Platelet Volume 12.3 fL (9.4-12.4); Monocytes Absolute Auto 0.5 X10*3/uL (0.1-1.2); Monocytes Percent Auto 11.5 % (2-11); Neutrophils Absolute Auto 2.6 x10*3/uL (2.0-8.3); Neutrophils Percent Auto 60.1 % (45-73); Platelet Count 42 X10*3/uL (160-400); Red Blood Count 3.32 X10*6/uL (4.60-5.80); Red Cell Distribution Width 14.9 % (11.0-16.0); White Blood Count 4.3 X10*3/uL (4.8-10.8)
[2022-04-28 07:50] LABS: Blood Urea Nitrogen 20 mg/dL (9-16); Calcium 8.9 mg/dL (8.4-10.2); Creatinine Clr Calc Pharmacy 95.7; Estimated Glomerular Filt Rate > 60; Glucose Random 91 mg/dL (60-115)
[2022-04-28 08:11] LABS: Alanine Aminotransferase 67 U/L (0-40); Albumin Level 4.4 g/dL (3.5-5.0); Alkaline Phosphatase 82 U/L (39-117); Aspartate Amino Transferase 139 U/L (5-37); Bilirubin Direct 0.6 mg/dL (0.0-0.5); Bilirubin Total 1.5 mg/dL (0.0-1.0)
[2022-04-28 08:15] VITALS: BP 127/78; PULSE 58; RESP 18; TEMP 36.6; O2SAT 96
--- NOTE | 2022-04-28 08:29 | P.DS_ITS ---
DS: Providers Provider Date of Service: 04/28/22 Date of admission: 04/27/22 19:05 Primary care physician: None Physician Consults: 04/27/22 19:05 Consult to Cardiology Routine Consulting Provider: Pratik Jackson Reason for consultation: ?EKG changes DS: Diagnosis Discharge Diagnosis (1) Hypokalemia: Status: Resolved (2) ETOH abuse: Status: Inactive DS: Summary Hospital Course Hospital Course: Chief Complaint: Nausea/vomiting 41-year-old male with a past medical history of alcohol abuse, GERD, history of alcoholic hepatitis; presented to the hospital today with a chief complaint of nausea/vomiting.? Patient reported that for the past 1 day he has been not feeling well.? Yesterday he was in the sun all day.? Mentioned that he has been trying to hydrate himself.? Patient denies any chest pain or palpitations, shortness of breath.? Denies any diarrhea.? Denies any abdominal pain.? Mentions that he drinks alcohol intermittently, last drink was on last . Denies any fever chills cough or sputum production.? Review of all other systems is negative except mentioned above ER course: Per ER team patient appears to be dehydrated; on labs noted to have elevated CPK, potassium 2.9, serum bicarb elevated; on EKG noted to have findings concerning for wellens syndrome; discussed with Dr. Jackson from Cardiology- mentioned changes appears to be likely secondary to collateral a derangement; no concern for acute ischemia, recommended product replacement.? Patient was given potassium supplementation.? Also received IV fluids.? Patient troponin was 6.8-7.5; admitted to the hospital for further management Hospital course: Patient was admitted due to nausea and vomitting likely from alcoholic gastritis and complicated by heat exhaustion with mild incrase in CPK to 1300 and not quite rhabdomylosis, potassium was low at 2.9 and ECG showed QTc of 501 with question raised about Wellen's syndrome. Hypokalemia was corrected, repeat ECG showed QTC of 465 and today ECG is essentially normal other than sinus nolan with HR 57 and QTC is 444. There is mild hyponatremia of 133 likely from alcohol use. He is not withdrawing, cessation discussed with him. He has mildly elevated LFTS that are chronic dating back in 2019 and likely from alcohol use.. Hepatitis serology is pending. [employer] showed: Diffuse hepatic steatosis. An indeterminate 1.7 x 0.9 x 1.3 cm hypoechoic lesion in the posterior left hepatic lobe. Suspected left intrahepatic portal venous thrombosis. Recommend dynamic liver MRI correlation for further evaluation of these findings. No evidence of cholelithiasis or acute cholecystitis. No biliary ductal dilatation . He has not been having abdominal pain. MRI of the liver was requested to further evaluate this and determine chronicity and need for anticoagulation, unfortunately he doesn't want to stay to get this done as he has to go take care of personal needs inlcuding taking care of his mom.. I could not convince him to stay and nor could Dr. Madera.. He would come back and get this done on outpatient basis through Dr. Madera's office.. He understands he is taking risk a risks, including even .. He verbalizes understanding and fully accpet risk.. He is further advise to avoid alcohol, drink plenty of water and stay out of the sun Initial CPK was 1397 and now 1347 following hydration. Nausea and vomitting have resolved, he is eating regular diet. Potassium is now normal at 3.8 . He is advised to drink plenty of fluid, avoid alcohol and follow up with PCP. Time Spent with Patient Time attestation: Total time spent providing and/or coordinating discharge services: Discharge coordination time: Greater than 30 minutes Quality: Safe Use of Opioids Does Pt have an Active Cancer Diagnosis on the Problem List?: No Quality: Stroke Does the patient have a stroke diagnosis?: No Physical Exam Vital Signs: Vital Signs: Last Vital Signs Temp 97.8 F 04/28/22 08:15 Pulse 58 04/28/22 08:15 Resp 18 04/28/22 08:15 BP 127/78 04/28/22 08:15 Pulse Ox 96 04/28/22 08:15 O2 Del Method 04/28/22 08:15 BMI result Body Mass Index 18.6 Const: Other: General: AO X 3, no acute distress Resp: CTA bilateral CVS: S1,S2,RRR GI: +BS, NT, no distention Skin: No rash Neuro: motor grossly intact Psych: appropriate affect DS: Data Data Completed and Pending Completed studies during hospitalization [Text1]: Procedures Detoxification Services for Substance Abuse Treatment (09/13/20) Labs on day of discharge: Laboratory Results - last 24 hr 04/27/22 04/27/22 04/27/22 15:50 15:50 15:50 WBC 4.7 L RBC 3.28 L Hgb 11.8 L Hct 33.5 L MCV 102.1 H MCH 36.0 H MCHC 35.2 RDW 15.0 Plt Count 44 L MPV 12.1 Immature Gran % (Auto) 0.4 Neut % (Auto) 70.3 Lymph % (Auto) 15.3 L [place] % (Auto) 13.6 H Eos % (Auto) 0.2 Baso % (Auto) 0.2 Lymph # (Auto) 0.7 L [place] # (Auto) 0.6 Eos # (Auto) 0.0 Baso # (Auto) 0.0 Abs Immat Gran (auto) 0.02 Absolute Neuts (auto) 3.3 Absolute Nucleated RBC 0.000 Nucleated RBC % (auto) 0.0 Smear Tech's Comments VERIFIED Sodium 135 Potassium 2.9 L Chloride 87 L Carbon Dioxide 31 H Anion Gap 20 BUN 27 H Creatinine 0.91 Estim Creat Clear Calc 87.2 Estimated GFR > 60 Random Glucose 99 Calcium 9.0 Magnesium 1.6 Total Bilirubin 1.8 H Direct Bilirubin AST 153 H ALT 73 H Alkaline Phosphatase 87 Total Creatine Kinase 1396 H Troponin I High Sens 6.8 Total Protein 8.5 H Albumin 4.6 COVID-19 (MUSHTAQ) COVID-19 Clin Com 04/27/22 04/27/22 04/28/22 15:50 17:35 06:01 WBC 4.3 L RBC 3.32 L Hgb 12.1 L Hct 34.7 L MCV 104.5 H MCH 36.4 H MCHC 34.9 RDW 14.9 Plt Count 42 L MPV 12.3 Immature Gran % (Auto) 0.2 Neut % (Auto) 60.1 Lymph % (Auto) 27.3 [place] % (Auto) 11.5 H Eos % (Auto) 0.7 Baso % (Auto) 0.2 Lymph # (Auto) 1.2 [place] # (Auto) 0.5 Eos # (Auto) 0.0 Baso # (Auto) 0.0 Abs Immat Gran (auto) 0.01 Absolute Neuts (auto) 2.6 Absolute Nucleated RBC 0.000 Nucleated RBC % (auto) 0.0 Smear Tech's Comments Sodium Potassium Chloride Carbon Dioxide Anion Gap BUN Creatinine Estim Creat Clear Calc Estimated GFR Random Glucose Calcium Magnesium Total Bilirubin Direct Bilirubin AST ALT Alkaline Phosphatase Total Creatine Kinase Troponin I High Sens 7.5 Total Protein Albumin COVID-19 (MUSHTAQ) Negative COVID-19 Clin Com See Note 04/28/22 04/28/22 06:01 06:01 WBC RBC Hgb Hct MCV MCH MCHC RDW Plt Count MPV Immature Gran % (Auto) Neut % (Auto) Lymph % (Auto) [place] % (Auto) Eos % (Auto) Baso % (Auto) Lymph # (Auto) [place] # (Auto) Eos # (Auto) Baso # (Auto) Abs Immat Gran (auto) Absolute Neuts (auto) Absolute Nucleated RBC Nucleated RBC % (auto) Smear Tech's Comments Sodium Potassium Chloride Carbon Dioxide Anion Gap BUN 20 H Creatinine 0.83 Estim Creat Clear Calc 95.7 Estimated GFR > 60 Random Glucose 91 Calcium 8.9 Magnesium Total Bilirubin 1.5 H Direct Bilirubin 0.6 H AST 139 H ALT 67 H Alkaline Phosphatase 82 Total Creatine Kinase 1347 H Troponin I High Sens Total Protein 8.0 Albumin 4.4 COVID-19 (MUSHTAQ) COVID-19 Clin Com Discharge Plan Discharge Anticipated Discharge Date/Time: 04/28/22 13:04 Patient Disposition: Left Against Medical Advice Discharge Diagnosis: Alcoholic gastrtis, hypokalemia, abnormal liver test Referrals: Serenity Madera MD [Physician] - 1 Week (call for appointment date) PhysicianAmarjit [Primary Care Provider] - 1 Week Discharge Medications: No Action No Known Home Meds Discharge Orders: Discharge Order (Routine); Ordered 04/28/22 Ordered By: Negrito Bone Diet: Advance to usual diet Activity on Discharge: As tolerated Care Plan Goals: Abstinence from alcohol, full recovery from hospialization Health Concerns: Abnormal liver ultrasound concern for portal vein clot Plan of Treatment: Follow up with Dr. Madera's office to have MRI of the abdomen done Stop drinking, drink plenty of water, stay out of sun --espcially at it's peaked when temperature is 80 or above if the head is just umcomfortable Assessment: As above Discharge Date/Time: 04/28/22 13:22
[2022-04-28 08:32] LABS: Anion Gap 13 (12-20); Carbon Dioxide 33 mmol/L (22-29); Chloride 91 mmol/L (96-108); Potassium 3.8 mmol/L (3.3-5.1); Sodium 133 mmol/L (135-145)
[2022-04-28] MEDS: Dextrose 5 % and 0.45 % NaCl 1,000 ML 100 ML IVCONT (09:07)
[2022-04-28] MEDS: Multivitamin TABLET 1 TAB PO (09:08)
[2022-04-28] MEDS: Nicotine 14 MG PATCH.TD24 TRANSDERMA (09:08)
[2022-04-28] MEDS: Thiamine HCL 100 MG TABLET PO (09:08)
[2022-04-28] MEDS: Famotidine 20 MG TABLET PO (09:08)
[2022-04-28] MEDS: Folic Acid 1 MG TABLET PO (09:08)
--- NOTE | 2022-04-28 09:30 | PHA.MEDREC ---
Pharmacy Consult ? Medication Reconciliation Pharmacy has completed the medication reconciliation. Patient reports no medications at home. Lyndsay Bach, HoracioD
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
--- NOTE | 2022-04-28 10:26 | P.PNIM_ITS ---
Subjective Subjective Date of Service: 04/28/22 Interval History: Seen in f/u n/v deemed alcoholic gastritis, elevated cpk, and elevated lfts, low potassium Review of Systems Gen: no fever Resp: no sob, no cough CV: no chest, no SHEA, no leg edema GI: No n/v, no abd pain Neuro: No confusion Physical Exam Vital Signs: Vital Signs: Last Vital Signs Temp 97.8 F 04/28/22 08:15 Pulse 58 04/28/22 08:15 Resp 18 04/28/22 08:15 BP 127/78 04/28/22 08:15 Pulse Ox 96 04/28/22 08:15 O2 Del Method 04/28/22 08:15 BMI result Body Mass Index 18.6 Const: Other: General: AO X 3, no acute distress Resp: CTA bilateral CVS: S1,S2,RRR GI: +BS, NT, no distention Skin: No rash Neuro: motor grossly intact Psych: appropriate affect Objective Data Active Medications Famotidine (Famotidine 20 Mg Tablet) 20 mg PO BID [facility] Last Admin: 04/28/22 09:08 Dose: 20 mg Documented By: PEYMAN Folic Acid (Folic Acid 1 Mg Tablet) 1 mg PO DAILY [facility] Stop: 05/01/22 08:59 Last Admin: 04/28/22 09:08 Dose: 1 mg Documented By: PEYMAN Heparin Sodium (Porcine) (Heparin Sodium,Porcine 5,000 Unit/Ml Vial) 5,000 unit SUBCUT Q8H [facility] Last Admin: 04/28/22 03:02 Dose: 5,000 unit Documented By: JAMIE Dextrose/Sodium Chloride (D51/2ns) 1,000 mls @ 100 mls/hr IVCONT .Q10H [facility] Last Admin: 04/28/22 09:07 Dose: 100 mls/hr Documented By: PEYMAN Lorazepam (Lorazepam 1 Mg Tablet) 1 mg PO Q4H PRN PRN Reason: Breakthrough alcohol withdrawa Stop: 05/01/22 19:04 Melatonin (Melatonin 3 Mg Tablet) 6 mg PO BEDTIME PRN PRN Reason: Insomnia Multivitamins/Vitamin C (Multivitamin Tablet) 1 tab PO DAILY [facility] Stop: 05/01/22 08:59 Last Admin: 04/28/22 09:08 Dose: 1 tab Documented By: PEYMAN Nicotine (Nicotine 14 Mg Patch.Td24) 14 mg TRANSDERMA DAILY [facility] Last Admin: 04/28/22 09:08 Dose: 14 mg Documented By: PEYMAN Pharmacy Consult (Consult Rx Perform Med Rec) 1 each MISCELLANE ONCE PRN PRN Reason: Consult order Senna (Sennosides 8.6 Mg Tablet) 17.2 mg PO BEDTIME PRN PRN Reason: Constipation Sodium Chloride (0.9 % Sodium Chloride Flush 3 Ml Syringe) 3 ml IVFLUSH QSHIFT [facility] Last Admin: 04/28/22 09:08 Dose: Not Given Documented By: PEYMAN Non-Admin Reason: IV Running Thiamine HCl (Thiamine Hcl 100 Mg Tablet) 100 mg PO DAILY [facility] Stop: 05/01/22 08:59 Last Admin: 04/28/22 09:08 Dose: 100 mg Documented By: PEYMAN Labs CBC & Chem 7: 04/28/22 06:01 04/28/22 06:01 Labs: Laboratory Results - last 24 hr 04/27/22 04/27/22 04/27/22 15:50 15:50 15:50 MCV 102.1 H MCH 36.0 H MCHC 35.2 RDW 15.0 Plt Count 44 L MPV 12.1 Immature Gran % (Auto) 0.4 Neut % (Auto) 70.3 Lymph % (Auto) 15.3 L [place] % (Auto) 13.6 H Eos % (Auto) 0.2 Baso % (Auto) 0.2 Lymph # (Auto) 0.7 L [place] # (Auto) 0.6 Eos # (Auto) 0.0 Baso # (Auto) 0.0 Abs Immat Gran (auto) 0.02 Absolute Neuts (auto) 3.3 Absolute Nucleated RBC 0.000 Nucleated RBC % (auto) 0.0 Smear Tech's Comments VERIFIED Anion Gap 20 Estim Creat Clear Calc 87.2 Estimated GFR > 60 Random Glucose 99 Calcium 9.0 Magnesium 1.6 Total Bilirubin 1.8 H Direct Bilirubin AST 153 H ALT 73 H Alkaline Phosphatase 87 Total Creatine Kinase 1396 H Troponin I High Sens 6.8 Total Protein 8.5 H Albumin 4.6 COVID-19 (MUSHTAQ) COVID-19 Clin Com 04/27/22 04/27/22 04/28/22 15:50 17:35 06:01 MCV 104.5 H MCH 36.4 H MCHC 34.9 RDW 14.9 Plt Count 42 L MPV 12.3 Immature Gran % (Auto) 0.2 Neut % (Auto) 60.1 Lymph % (Auto) 27.3 [place] % (Auto) 11.5 H Eos % (Auto) 0.7 Baso % (Auto) 0.2 Lymph # (Auto) 1.2 [place] # (Auto) 0.5 Eos # (Auto) 0.0 Baso # (Auto) 0.0 Abs Immat Gran (auto) 0.01 Absolute Neuts (auto) 2.6 Absolute Nucleated RBC 0.000 Nucleated RBC % (auto) 0.0 Smear Tech's Comments Anion Gap Estim Creat Clear Calc Estimated GFR Random Glucose Calcium Magnesium Total Bilirubin Direct Bilirubin AST ALT Alkaline Phosphatase Total Creatine Kinase Troponin I High Sens 7.5 Total Protein Albumin COVID-19 (MUSHTAQ) Negative COVID-19 Clin Com See Note 04/28/22 04/28/22 06:01 06:01 MCV MCH MCHC RDW Plt Count MPV Immature Gran % (Auto) Neut % (Auto) Lymph % (Auto) [place] % (Auto) Eos % (Auto) Baso % (Auto) Lymph # (Auto) [place] # (Auto) Eos # (Auto) Baso # (Auto) Abs Immat Gran (auto) Absolute Neuts (auto) Absolute Nucleated RBC Nucleated RBC % (auto) Smear Tech's Comments Anion Gap 13 Estim Creat Clear Calc 95.7 Estimated GFR > 60 Random Glucose 91 Calcium 8.9 Magnesium Total Bilirubin 1.5 H Direct Bilirubin 0.6 H AST 139 H ALT 67 H Alkaline Phosphatase 82 Total Creatine Kinase 1347 H Troponin I High Sens Total Protein 8.0 Albumin 4.4 COVID-19 (MUSHTAQ) COVID-19 Clin Com Assessment and Plan (1) Abnormal EKG: Status: Acute (2) Hypokalemia: Status: Acute (3) Alcoholic hepatitis: Status: Acute (4) ETOH abuse: Status: Acute (5) Depression: Status: Acute Plan 41-year-old male with a past medical history of alcohol abuse, GERD, history of alcoholic hepatitis; presented to the hospital today with a chief complaint of nausea/vomiting. Nausea/vomiting: resolved Hypokalemia: resolved Elevated CPK: doesn't meet rhabdomylosis definition Transaminitis: this is chronic dating back 2019, US US: Diffuse hepatic steatosis. ? An indeterminate 1.7 x 0.9 x 1.3 cm hypoechoic lesion in the posterior left hepatic lobe. Suspected left intrahepatic portal venous thrombosis. Recommend dynamic liver MRI correlation for further evaluation of these findings. ? No evidence of cholelithiasis or acute cholecystitis. No biliary ductal dilatation. ? I will get GI to see him Need for inpatient: liver leasion, possible portal veint clot and will need further Quality Stroke Does the patient have a stroke diagnosis?: No VTE Prior VTE?: No VTE Risk Level:: Medical - moderate - high VTE Device Contraindication: Treatment Not Indicated VTE Drug Contraindication: N/A - Med Ordered
--- NOTE | 2022-04-28 10:57 | PM.GICN ---
History of Present Illness Data of Consult Service Date: 04/28/22 Requesting physician: Negrito Bone Primary Care Provider: None Physician HPI Reason for consult: ESLD, Portal vein thrombosis 41 YM with hx of ETOH abuse, alcoholic hepatitis, GERD seen at [facility] ED on 04/27/22 with nausea/vomiting.? Patient reported that for the past 1 day he has been not feeling well.? 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 Denies any fever chills cough or sputum production.? Patient notes decreased appetite and denies symptoms of heartburn or dysphagia. Denies recent change in bowel habits, constipation, diarrhea, black stools or rectal bleeding. Pt states he was diagnosed with alcoholic Liver disease during past hospitalization in [facility]. Patient denies major cardiac or pulmonary problems, loud snoring or sleep apnea Severe chronic ETOH use since age 18. Denies major consequences except loss of fiance my best friend . No DUI/job loss/medical. However ETOH hepatitis and low platelets noted. Patient states he was drinking 1 pt of vodka daily and has cut down to 3-4 beers on the weekends now. He admits to smoking 10 cigarettes per day and and denies drug abuse. Patient is single and has one 16-year-old daughter in [place]. 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 Patient denies known family history of colon polyps, colon cancer. Dad had surgery for lung cancer, has esophageal cancer and recently diagnosed with liver cancer versus mets. PAST EGD/COLONOSCOPY: Patient denies having an upper endoscopy or colonoscopy in the past LABS SHOWED: Macrocytic anemia with H&H of 12.1 and 34.7, platelet 42 Hyperkalemia, elevated BUN to 27, CPK 3096, albumin 4.4, Elevated LFTs with AST greater than ALT suggestive of alcohol like hepatitis IMAGING STUDIES: 04/28/22 DUPLEX ABDOMINAL ULTRASOUND SHOWED: Diffuse hepatic steatosis. An indeterminate 1.7 x 0.9 x 1.3 cm hypoechoic lesion in the posterior left hepatic lobe. Suspected left intrahepatic portal venous thrombosis. Recommend dynamic liver MRI correlation for further evaluation of these findings. ?No evidence of cholelithiasis or acute cholecystitis. No biliary ductal dilatation. 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 Jackson from Cardiology-mentioned changes appears to be likely secondary to collateral a derangement; no concern for acute ischemia, recommended product replacement.? Patient was given potassium supplementation.? Also received IV fluids.? Patient troponin was 6.8-7.5; admitted to the hospital for further management Review of Systems Constitutional: Constitutional: Reports no additional constitutional complaints, Denies chills, Denies fever(s) and Denies night sweats Eyes: Eyes: Reports no additional eye complaints, Denies blurry vision, Denies change in vision, Denies diplopia, Denies eye discharge, Denies loss of vision and Denies eye pain ENT: Denies dizziness Cardiovascular: Cardiovascular: Reports no additional cardiovascular complaints, Denies chest pain, Denies lightheadedness, Denies Loss of Consciousness and Denies dyspnea Respiratory: Respiratory: Reports no additional respiratory complaints and Denies dyspnea Gastrointestinal: Gastrointestinal: Reports no additional gastrointestinal complaints, Denies abdominal pain, Denies melena, Denies hematochezia, Denies change in bowel habits, Denies change in stool character, Reports nausea and Reports vomiting Genitourinary: Genitourinary: Reports no additional male genitourinary complaints, Denies hematuria, Denies oliguria, Denies difficulty urinating, Denies dysuria, Denies urinary frequency, Denies urinary hesitancy, Denies urinary incontinence and Denies urinary urgency Musculoskeletal: Musculoskeletal: Reports no additional musculoskeletal complaints, Denies numbness and Denies tingling Neurologic: Denies dizziness, Denies loss of vision, Denies numbness and Denies tingling Psychiatric: Psychiatric: Reports no additional psychiatric complaints Endocrine: Endocrine: Reports no additional endocrine complaints Hematologic/Lymphatic: Hematologic/Lymphatic: Reports no additional hematologic/lymphatic complaints Allergic/Immunologic: Allergic/Immunologic: Reports no additional allergic/immunologic complaints [facility] Past Medical History Medical History ETOH abuse GERD (gastroesophageal reflux disease) Neuropathy Social History Social History Household Members: Other Household Members Other:: Mother Housing: Apartment Do you presently have visiting nurse or other home services: No Alcohol intake: current Patient Tobacco Use Status: Current someday Tobacco user Tobacco use type: Cigarette Cigarette Packs Per Day: 1 Cigarettes Per Day: 10 Years Smoked: 25 Second Hand Smoke Exposure: Yes Substance Use Type: Marijuana service: No Current occupational status: unemployed Sexual orientation: Straight/Heterosexual Meds Allergies Allergy/AdvReac Type Severity Reaction Status Date / Time No Known Allergies Allergy Verified 10/05/20 15:39 Active Medications: Current Medications Famotidine (Famotidine 20 Mg Tablet) 20 mg PO BID [facility] Last Admin: 04/28/22 09:08 Dose: 20 mg Folic Acid (Folic Acid 1 Mg Tablet) 1 mg PO DAILY [facility] Stop: 05/01/22 08:59 Last Admin: 04/28/22 09:08 Dose: 1 mg Heparin Sodium (Porcine) (Heparin Sodium,Porcine 5,000 Unit/Ml Vial) 5,000 unit SUBCUT Q8H [facility] Last Admin: 04/28/22 03:02 Dose: 5,000 unit Dextrose/Sodium Chloride (D51/2ns) 1,000 mls @ 100 mls/hr IVCONT .Q10H [facility] Last Admin: 04/28/22 09:07 Dose: 100 mls/hr Lorazepam (Lorazepam 1 Mg Tablet) 1 mg PO Q4H PRN PRN Reason: Breakthrough alcohol withdrawa Stop: 05/01/22 19:04 Melatonin (Melatonin 3 Mg Tablet) 6 mg PO BEDTIME PRN PRN Reason: Insomnia Multivitamins/Vitamin C (Multivitamin Tablet) 1 tab PO DAILY [facility] Stop: 05/01/22 08:59 Last Admin: 04/28/22 09:08 Dose: 1 tab Nicotine (Nicotine 14 Mg Patch.Td24) 14 mg TRANSDERMA DAILY [facility] Last Admin: 04/28/22 09:08 Dose: 14 mg Pharmacy Consult (Consult Rx Perform Med Rec) 1 each MISCELLANE ONCE PRN PRN Reason: Consult order Senna (Sennosides 8.6 Mg Tablet) 17.2 mg PO BEDTIME PRN PRN Reason: Constipation Sodium Chloride (0.9 % Sodium Chloride Flush 3 Ml Syringe) 3 ml IVFLUSH QSHIFT [facility] Last Admin: 04/28/22 09:08 Dose: Not Given Thiamine HCl (Thiamine Hcl 100 Mg Tablet) 100 mg PO DAILY [facility] Stop: 05/01/22 08:59 Last Admin: 04/28/22 09:08 Dose: 100 mg Home Medications Medication Instructions Recorded Confirmed Last Taken Type No Known Home Meds 04/28/22 04/28/22 Unknown History Physical Exam Vital Signs: Vital Signs: Last Vital Signs Temp 97.8 F 04/28/22 08:15 Pulse 58 04/28/22 08:15 Resp 18 04/28/22 08:15 BP 127/78 04/28/22 08:15 Pulse Ox 96 04/28/22 08:15 O2 Del Method 04/28/22 08:15 BMI result Body Mass Index 18.6 Const: General: healthy appearing and no acute distress Nutritional Appearance: underweight Orientation/consciousness: patient oriented x3 Limitations: no limitations HEENT: Head: Yes normal to inspection Ears: hearing grossly normal bilaterally Mouth: Normal oral and palatal mucosa present Eyes: Sclerae: sclerae normal Pupils: Equal, round and reactive pupils present Neck: Neck: Yes normal visual inspection Chest: Chest palpation & inspection: normal inspection of the chest Resp: Effort & Inspection: normal respiratory effort Auscultation: clear to auscultation bilaterally Cardio: Palpation: normal PMI Rate: regular rate Rhythm: regular rhythm Heart sounds: S1 normal heart sound present, S2 normal heart sound present and no murmurs GI: Palpation (GI): Soft to palpation, nontender and No hepatosplenomegaly present Auscultation: normal bowel sounds Rectal Exam - Male: Yes deferred Skin: General skin exam: no rashes or lesions noted Neuro: General: patient oriented x3, gait normal and moves all extremities Cranial nerves: Yes Equal, round and reactive pupils present Psych: Appearance: grossly normal Mental Status: mental status grossly normal Results Labs CBC & Chem 7: 04/28/22 06:01 04/28/22 06:01 Labs: Short CBC 04/27/22 04/28/22 Range/Units 15:50 06:01 WBC 4.7 L 4.3 L (4.8-10.8) X10*3/uL Hgb 11.8 L 12.1 L (14.0-18.0) g/dl Hct 33.5 L 34.7 L (42.0-52.0) % Plt Count 44 L 42 L (160-400) X10*3/uL BMP 04/27/22 04/28/22 15:50 06:01 Sodium 135 133 L Potassium 2.9 L 3.8 D Chloride 87 L 91 L Carbon Dioxide 31 H 33 H BUN 27 H 20 H Creatinine 0.91 0.83 Calcium 9.0 8.9 Cardiac Enzymes 04/27/22 04/28/22 Range/Units 15:50 06:01 Total Creatine Kinase 1396 H 1347 H (38-174) U/L Liver Function 04/27/22 04/28/22 Range/Units 15:50 06:01 Total Bilirubin 1.8 H 1.5 H (0.0-1.0) mg/dL Direct Bilirubin 0.6 H (0.0-0.5) mg/dL AST 153 H 139 H (5-37) U/L ALT 73 H 67 H (0-40) U/L Alkaline Phosphatase 87 82 (39-117) U/L Albumin 4.6 4.4 (3.5-5.0) g/dL Assessment and Plan (1) Alcoholic hepatitis: Status: Acute (2) ETOH abuse: Status: Inactive (3) Abnormal US (ultrasound) of abdomen: Status: Acute Plan 41 YM with hx of ETOH abuse, alcoholic hepatitis, GERD admitted to [facility] on 04/27/22 with nausea/vomiting.? 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 Severe chronic ETOH use since age 18. Denies major consequences except loss of fiance my best friend . No DUI/job loss/medical. However ETOH hepatitis and low platelets noted. Patient states he was drinking 1 pt of vodka daily and has cut down to 3-4 beers on the weekends now. 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 LABS SHOWED: Macrocytic anemia with H&H of 12.1 and 34.7, platelet 42 Hyperkalemia, elevated BUN to 27, CPK 3096, albumin 4.4, Elevated LFTs with AST greater than ALT suggestive of alcohol like hepatitis IMAGING STUDIES: 04/28/22 DUPLEX ABDOMINAL ULTRASOUND SHOWED: Diffuse hepatic steatosis. An indeterminate 1.7 x 0.9 x 1.3 cm hypoechoic lesion in the posterior left hepatic lobe. Suspected left intrahepatic portal venous thrombosis. Recommend dynamic liver MRI correlation for further evaluation of these findings. ?No evidence of cholelithiasis or acute cholecystitis. No biliary ductal dilatation. RECOMMENDATIONS: 1. Check CEA, CA 19-9 and AFP 2. MRI for evaluation of hepatic lesion and rule out HCC 3. Pt advised to abstain completely from ETOH Pt stated he is unable to stay in the hospital since he needs to go home to take care of his Mom. Pt understands he MRI is needed to rule out liver cancer and he may need to be placed on blood thinners for portal vein thrombosis Pt plans to leave AMA. He stated, he can return tomorrow for the MRI. Patient was informed, MRI may not be scheduled tomorrow if he requires preauthorization for the MRI. 05/02/22 ABD MRI SHOWED: Atrophic appearance of the left lobe of the liver. No focal discrete mass identified. There is uniform hyperenhancement throughout the left lobe of the liver on all sequences. The left portal vein is patent. The left hepatic vein may be atrophic or occluded. ? Hepatic steatosis. Procedures Date of Service Date of Service: 04/28/22
[2022-04-28 11:37] VITALS: BP 128/81; PULSE 65; RESP 14; TEMP 36.3; O2SAT 97
[2022-04-28 15:07] LABS: Vitamin B12 422 pg/mL (200-900)
[2022-04-29 08:29] LABS: HBS Num1 1.19 mIU/mL (0-7.99); HBc Num1 0.08 S/CO (0.00-0.79); HBsAGNum1 0.18 S/CO (0.00-0.99); Hepatitis B Core Antibody Nonreactive (Nonreactive); Hepatitis B Surface Antigen Negative (Negative); ~HepC Num1 2.16 S/CO (0.00-0.79); ~Hepatitis B Surface Antibody NONREACTIVE (Nonreactive); ~Hepatitis C Antibody Reactive (Nonreactive)
[2022-04-30 12:17] LABS: Carbohydrate Antigen 19-9 7 U/mL (<34)
[2022-04-30 12:36] LABS: Alpha Fetoprotein 3.4 ng/mL (<6.1)
[2022-05-01 08:14] LABS: Hepatitis A Antibody IgM 0.29 Index (0-0.79); ~Hepatitis A Antibody IgM Nonreactive (Nonreactive)
== END 2022-04-28 13:22 | disposition left against medical advice (07) ==
LOC: HO.ED 16:36 → HO.EDOVER 19:09 → HO.S3 04-28 01:31
PROVIDERS: Internal Medicine Gastroenterology; Physician Assistant Medical; Admitting Provider Hospitalist; Emergency Provider Emergency Medicine Emergency Medical Services; Visit Provider Internal Medicine
DX: E87.6 Hypokalemia (principal); R94.31 Abnormal electrocardiogram [ECG] [EKG]; K70.10 Alcoholic hepatitis without ascites; F10.10 Alcohol abuse, uncomplicated; Y90.9 Presence of alcohol in blood, level not specified; E86.0 Dehydration; F33.1 Major depressive disorder, recurrent, moderate; R11.2 Nausea with vomiting, unspecified; K21.9 Gastro-esophageal reflux disease without esophagitis; F17.210 Nicotine dependence, cigarettes, uncomplicated; F12.90 Cannabis use, unspecified, uncomplicated; R42 Dizziness and giddiness; R07.89 Other chest pain; R06.02 Shortness of breath; Z71.6 Tobacco abuse counseling; Z20.822 Contact with and (suspected) exposure to COVID-19; Z79.899 Other long term (current) drug therapy
CPT/HCPCS: 36415; 76705; 80048; 80053; 80076; 82105; 82378; 82550; 82607; 83735; 84484; 85025; 86301; 86704; 86706; 86709; 86803; 87340; 87635; 93005; 96361; 96365; 96366; 96367; 99218; 99285

== ENCOUNTER 2022-05-02 16:30 | Outpatient (REF) | payer MEDICAID, SELFPAY ==
--- NOTE | ~2022-05-02 | MR_ITS ---
EXAMINATION: MR ABDOMEN WITHOUT AND WITH CONTRAST CLINICAL INFORMATION: Abnormal findings on diagnostic imaging. Ultrasound follow-up of liver lesion. COMPARISON: Ultrasound 04/28/2022 TECHNIQUE: MR abdomen was performed without and with use of 6 mL intravenous Gadavist gadolinium contrast. Postcontrast images are performed in multiphase dynamic sequences. Imaging was performed in 3 planes. FINDINGS: LUNG BASES: The visualized lung bases are unremarkable. LIVER, GALLBLADDER, AND BILIARY TREE: The left lobe of the liver is atrophic. There is no discrete lesion identified in the left lobe, with the overall signal on postcontrast imaging throughout the left lobe of the liver differing from the right lobe on T2-weighted imaging this is fairly uniform. Prior to contrast administration on T1-weighted imaging this is somewhat decreased in signal compared to the right lobe. On postcontrast imaging the entirety of the left lobe is hyperenhancing. This remains so throughout the dynamic postcontrast imaging.. There is diffuse signal dropout on out of phase imaging, consistent with hepatic steatosis. No biliary ductal dilatation is present. The gallbladder is unremarkable with no evidence of gallbladder wall thickening, or obvious pericholecystic inflammatory changes. PANCREAS: Unremarkable. SPLEEN: Normal. ADRENAL GLANDS: Normal. KIDNEYS AND URETERS: The kidneys are normal in size, shape, and enhance symmetrically. No hydronephrosis. No perinephric stranding. GASTROINTESTINAL TRACT: No bowel obstruction. No ascites or fluid collection. ABDOMINAL WALL: No significant hernia is appreciated. LYMPH NODES: No lymphadenopathy. VASCULAR: Normal caliber aorta. The main portal vein is patent. The right, middle, and left portal veins are patent. The left portal vein can be seen well opacified on series 100 image 32. The left hepatic vein may be atrophic or occluded. OSSEOUS STRUCTURES: Marrow signal normal. MR/MR abdomen wo/w con IMPRESSION: Atrophic appearance of the left lobe of the liver. No focal discrete mass identified. There is uniform hyperenhancement throughout the left lobe of the liver on all sequences. The left portal vein is patent. The left hepatic vein may be atrophic or occluded. Hepatic steatosis.
== END 2022-05-02 16:31 | disposition home or self-care (01) ==
LOC: HO.MRI 16:30
PROVIDERS: Visit Provider Internal Medicine Gastroenterology
DX: R93.5 Abnormal findings on diagnostic imaging of other abdominal regions, including retroperitoneum (principal)
CPT/HCPCS: 74183; A9585

== ENCOUNTER 2022-08-13 10:33 | Inpatient (IN) | payer MEDICAID, SELFPAY ==
--- NOTE | ~2022-08-13 | XR_ITS ---
EXAMINATION: XR CHEST CLINICAL INFORMATION: Chest pain COMPARISON: 09/08/2020 TECHNIQUE: 2 views of the chest were obtained. FINDINGS: Lungs are well expanded. Mild hazy, streaky opacity of the medial right lung base. Also, patchy opacity is present in the left lower lobe. No pleural effusion or pneumothorax. Cardiac silhouette is normal in size. Pulmonary vascular pattern is normal. There appear to be a few old healed rib fractures. Otherwise, the visualized bones, and upper abdomen, are unremarkable. XR/XR chest 2V IMPRESSION: The patchy, hazy opacities in lower lung zones suggest presence of pneumonia or aspiration pneumonitis. No pleural effusion.
--- NOTE | 2022-08-13 10:36 | ECG_ITS ---
Test Reason : CHEST PAIN Blood Pressure : / mmHG Vent. Rate : 089 BPM Atrial Rate : 089 BPM P-R Int : 120 ms QRS Dur : 090 ms QT Int : 392 ms P-R-T Axes : 040 077 041 degrees QTc Int : 476 ms Normal sinus rhythm Normal ECG When compared with ECG of 28-APR-2022 08:13, Vent. rate has increased BY 32 BPM Referred By: Generic ED Physician Electronically Signed By:KAYA OWENS MD
[2022-08-13 10:40] VITALS: BP 131/76; PULSE 101; O2SAT 94
[2022-08-13 10:53] VITALS: BP 120/59; PULSE 99; RESP 20; TEMP 37.3; O2SAT 96; BMI 18.6
[2022-08-13 11:13] LABS: MANUAL DIFF FLAG NO
[2022-08-13 11:17] LABS: Basophils Absolute Auto 0.1 X10*3/uL (0.0-0.2); Basophils Percent Auto 0.5 % (0-2); Hematocrit 30.8 % (42.0-52.0); Hemoglobin 10.8 g/dl (14.0-18.0); Imm Gran Abs Auto 0.08 X10*3/uL (0.00-0.03); Imm Gran Pct Auto 0.5 % (0.0-0.4); Lymphocytes Absolute Auto 1.1 X10*3/uL (1.2-4.9); Lymphocytes Percent Auto 6.4 % (20-40); Mean Corpuscular HGB Conc 35.1 g/dl (31.0-36.0); Mean Corpuscular Hemoglobin 37.2 pg (27.0-33.0); Mean Corpuscular Volume 106.2 fL (80.0-98.0); Mean Platelet Volume 9.6 fL (9.4-12.4); Monocytes Absolute Auto 1.1 X10*3/uL (0.1-1.2); Monocytes Percent Auto 6.1 % (2-11); Neutrophils Absolute Auto 15.3 x10*3/uL (2.0-8.3); Neutrophils Percent Auto 86.5 % (45-73); Red Cell Distribution Width 12.4 % (11.0-16.0); White Blood Count 17.7 X10*3/uL (4.8-10.8)
[2022-08-13 11:18] LABS: Platelet Count 52 X10*3/uL (160-400)
[2022-08-13 11:31] LABS: Anion Gap 20 (12-20); Blood Urea Nitrogen 15 mg/dL (9-16); Calcium 8.6 mg/dL (8.4-10.2); Carbon Dioxide 24 mmol/L (22-29); Chloride 94 mmol/L (96-108); Creatinine Clr Calc Pharmacy 115.1; Estimated Glomerular Filt Rate > 60; Glucose Random 88 mg/dL (60-115); Potassium 3.8 mmol/L (3.3-5.1); Sodium 134 mmol/L (135-145)
[2022-08-13 11:35] LABS: Influenza A Negative (Negative); Influenza B2 Negative (Negative)
[2022-08-13 11:36] LABS: Troponin-I High Sensitivity 5.7 ng/L (<3.5-35.0)
[2022-08-13 22:21] VITALS: BP 146/82; PULSE 73; RESP 20; TEMP 37.3; O2SAT 95
--- NOTE | 2022-08-13 22:30 | ED.CHESTPAIN ---
HPI - Chest Pain General Chief Complaint: Chest Pain Stated Complaint: CHEST PAIN Time Seen by Provider: 08/13/22 22:19 Source: patient Mode of arrival: ambulatory Limitations: no limitations History of Present Illness HPI narrative: 41-year-old male came in for evaluation of right-sided chest pain. Right-sided chest pain that started 4 days ago pain radiates to the mid chest, described as a dull aching pain that is been constant, associated with coughing with a dark sputum, complaining also of chills but no fever, no nausea or vomiting, declined any trauma to the chest wall, no relieving factor, no aggravating factors. Patient is a smoker Related Data Home Medications Medication Instructions Recorded Confirmed No Known Home Meds 04/28/22 04/28/22 Allergies Allergy/AdvReac Type Severity Reaction Status Date / Time No Known Allergies Allergy Verified 10/05/20 15:39 Review of Systems Review of Systems: all other systems are reviewed and are negative Constitutional: Reports as per HPI and Reports no additional constitutional complaints Eyes: Reports as per HPI and Reports no additional eye complaints Reports system reviewed and no additional complaints, except as documented Cardiovascular: Reports as per HPI and Reports no additional cardiovascular complaints Respiratory: Reports as per HPI and Reports no additional respiratory complaints Gastrointestinal: Reports as per HPI and Reports no additional gastrointestinal complaints Genitourinary: Reports no additional female genitourinary complaints Musculoskeletal: Reports no additional musculoskeletal complaints Skin/Breast: Reports system reviewed and no additional complaints, except as docu Psychiatric: Reports no additional psychiatric complaints Endocrine: Reports no additional endocrine complaints Hematologic/Lymphatic: Reports no additional hematologic/lymphatic complaints Allergic/Immunologic: Reports no additional allergic/immunologic complaints Reports system reviewed and no additional complaints, except as documented and Reports Abnormal speech present [facility] Past Medical History Medical History ETOH abuse GERD (gastroesophageal reflux disease) Neuropathy Social History Social History Household Members: Other Household Members Other:: Mother Housing: Apartment Do you presently have visiting nurse or other home services: No Alcohol intake: current Patient Tobacco Use Status: Current someday Tobacco user Tobacco use type: Cigarette Cigarette Packs Per Day: 1 Cigarettes Per Day: 10 Years Smoked: 25 Second Hand Smoke Exposure: Yes Substance Use Type: Marijuana Advance Directives: No service: No Current occupational status: unemployed Sexual orientation: Straight/Heterosexual Physical Exam Vital Signs: Vital Signs: Last Vital Signs Temp 99.1 F 08/13/22 22:21 Pulse 73 08/13/22 22:21 Resp 20 08/13/22 22:21 BP 146/82 H 08/13/22 22:21 Pulse Ox 95 08/13/22 22:21 O2 Del Method 08/13/22 22:21 BMI result Body Mass Index 18.6 vital signs have been reviewed as appeared to be correct. Blood pressure normal. Heart rate normal. Respiration rate normal. Temperature normal. Oxygen saturation normal. Appearance: Alert. Oriented X3. No acute distress. Head: Normal external exam. Normocephalic. Atraumatic. No Blake signs noted. No raccoon eyes noted Eyes: PERRLA. EOMI. Conjunctiva and sclera normal. Eyelids normal. ENT: TM's Normal. Pharynx normal. Uvula midline. Moist mucous membranes. No trismus noted. No drooling noted. No muffled voice noted. Neck: Normal inspection. Neck supple. FROM. No adenopathy. Thyroid Normal. No meningeal signs. No neck mass noted. CVS: Normal heart rate and rhythm. Heart sound normal. No murmurs noted. Pulses normal throughout. Respiratory: No respiratory distress. Painless inspiration. decreased breathing sound on the right lower lung field with crackles on the right lower lung lópez.. No wheezes/rales. Chest nontender. No accessory muscle usage noted or decreased air movement noted. Abdomen: Soft and nontender. Bowel sounds normal in all 4 quadrants. No distention noted. No organomegaly noted. No visible injury noted. Back: No CVA tenderness. Full range of motion noted. Skin: Skin warm and dry. Normal skin color. Normal skin turgor. No rashes/lesions/lacerations noted. Extremities: No lower extremity edema. Extremities exhibit normal range of motion. Extremities nontender. Neuro: Oriented X 3. Cranial nerve exam: II-XII are grossly intact No motor deficit. No sensory deficit. Reflexes normal. Course Course Course Narrative: 41-year-old male came in for evaluation of right-sided chest pain coughing, patient has pneumonia, no criteria for septic shock or severe sepsis , patient met SIRS criteria with tachycardia and leukocytosis.start on antibiotic and IV hydration. MDM - Chest Pain Medical Records Data Attestation: I reviewed the patient's medical records. Lab Data Attestation: I reviewed the patient's lab results. Result diagrams: 08/13/22 11:04 08/13/22 11:04 Labs: Lab Results 08/13/22 08/13/22 08/13/22 Range/Units 11:02 11:04 11:04 WBC 17.7 H (4.8-10.8) X10*3/uL RBC 2.90 L (4.60-5.80) X10*6/uL Hgb 10.8 L (14.0-18.0) g/dl Hct 30.8 L (42.0-52.0) % MCV 106.2 H (80.0-98.0) fL MCH 37.2 H (27.0-33.0) pg MCHC 35.1 (31.0-36.0) g/dl RDW 12.4 (11.0-16.0) % Plt Count 52 L (160-400) X10*3/uL MPV 9.6 (9.4-12.4) fL Immature Gran % (Auto) 0.5 H (0.0-0.4) % Neut % (Auto) 86.5 H (45-73) % Lymph % (Auto) 6.4 L (20-40) % [place] % (Auto) 6.1 (2-11) % Eos % (Auto) 0.0 (0-4) % Baso % (Auto) 0.5 (0-2) % Lymph # (Auto) 1.1 L (1.2-4.9) X10*3/uL [place] # (Auto) 1.1 (0.1-1.2) X10*3/uL Eos # (Auto) 0.0 (0.0-0.4) X10*3/uL Baso # (Auto) 0.1 (0.0-0.2) X10*3/uL Abs Immat Gran (auto) 0.08 H (0.00-0.03) X10*3/uL Absolute Neuts (auto) 15.3 H (2.0-8.3) x10*3/uL Absolute Nucleated RBC 0.000 (0.0-0.012) X10*3/uL Nucleated RBC % (auto) 0.0 (0.0-0.2) /100WBC Sodium 134 L (135-145) mmol/L Potassium 3.8 (3.3-5.1) mmol/L Chloride 94 L (96-108) mmol/L Carbon Dioxide 24 (22-29) mmol/L Anion Gap 20 (12-20) BUN 15 (9-16) mg/dL Creatinine 0.69 (0.5-1.4) mg/dL Estim Creat Clear Calc 115.1 Estimated GFR > 60 Random Glucose 88 (60-115) mg/dL Calcium 8.6 (8.4-10.2) mg/dL Troponin I High Sens (<3.5-35.0) ng/L Influenza Type A (ANDREW) Negative (Negative) Influenza Type B (ANDREW) Negative (Negative) Influenza A & B Note See Note 08/13/22 Range/Units 11:04 WBC (4.8-10.8) X10*3/uL RBC (4.60-5.80) X10*6/uL Hgb (14.0-18.0) g/dl Hct (42.0-52.0) % MCV (80.0-98.0) fL MCH (27.0-33.0) pg MCHC (31.0-36.0) g/dl RDW (11.0-16.0) % Plt Count (160-400) X10*3/uL MPV (9.4-12.4) fL Immature Gran % (Auto) (0.0-0.4) % Neut % (Auto) (45-73) % Lymph % (Auto) (20-40) % [place] % (Auto) (2-11) % Eos % (Auto) (0-4) % Baso % (Auto) (0-2) % Lymph # (Auto) (1.2-4.9) X10*3/uL [place] # (Auto) (0.1-1.2) X10*3/uL Eos # (Auto) (0.0-0.4) X10*3/uL Baso # (Auto) (0.0-0.2) X10*3/uL Abs Immat Gran (auto) (0.00-0.03) X10*3/uL Absolute Neuts (auto) (2.0-8.3) x10*3/uL Absolute Nucleated RBC (0.0-0.012) X10*3/uL Nucleated RBC % (auto) (0.0-0.2) /100WBC Sodium (135-145) mmol/L Potassium (3.3-5.1) mmol/L Chloride (96-108) mmol/L Carbon Dioxide (22-29) mmol/L Anion Gap (12-20) BUN (9-16) mg/dL Creatinine (0.5-1.4) mg/dL Estim Creat Clear Calc Estimated GFR Random Glucose (60-115) mg/dL Calcium (8.4-10.2) mg/dL Troponin I High Sens 5.7 (<3.5-35.0) ng/L Influenza Type A (ANDREW) (Negative) Influenza Type B (ANDREW) (Negative) Influenza A & B Note Imaging Data Chest x-ray: Attestation: I personally reviewed and interpreted this imaging study as follows: Radiologist's impression: The patchy, hazy opacities in lower lung zones suggest presence of pneumonia or aspiration pneumonitis. No pleural effusion. ECG Data ECG #1: Attestation: I personally reviewed and interpreted this ECG as follows: Interpretation: Normal sinus rhythm at 89 beats per minutes, normal intervals, normal axis deviation, no ST-T changes, no change from old EKG. Discharge Plan Discharge Clinical Impression: Pneumonia Patient Disposition: Admitted As Inpatient Prescriptions: No Action No Known Home Meds
[2022-08-13] MEDS: 0.9 % Sodium Chloride 1,000 ML 999 ML IV (22:55)
[2022-08-13] MEDS: cefTRIAXone sodium 1 GM in 0.9 % Sodium Chloride 50 ML IV (22:55)
--- NOTE | 2022-08-13 23:05 | P.HPHOSP_ITS ---
History of Present Illness Date of Service: 08/13/22 Chief Complaint: Pleuritic chest pain This is a 41-year-old male with no pertinent past medical history and not on prescription medications who presents to the emergency department for evaluation of pleuritic chest discomfort. Patient states it started about 4 days prior to presentation, worse with inspiration, midsternal, nonradiating, constant, progressive and without any relieving factors. It is associated with chills and productive cough. Initially sputum was clear but subsequently it has changed to yellowish in color. No similar symptoms in the past. No sick contacts. No recent travel. Did have upper respiratory symptoms including runny nose about 3-4 days ago. No trauma to the chest wall. Patient denies nausea, vomiting, abdominal discomfort, palpitations, changes in urinary or bowel habits In the emergency department, sirs was positive and patient was found to have right-sided infiltrate on x-ray Review of Systems Constitutional: Constitutional: Reports chills Cardiovascular: Cardiovascular: Reports no additional cardiovascular complaints Respiratory: Respiratory: Reports change in phlegm color, Reports cough and Re ports pain with cough Gastrointestinal: Gastrointestinal: Reports no additional gastrointestinal complaints Genitourinary: Genitourinary: Reports no additional male genitourinary complaints Musculoskeletal: Musculoskeletal: Reports no additional musculoskeletal complaints Neurologic: Reports system reviewed and no additional complaints, except as documented [facility] Medical History ETOH abuse GERD (gastroesophageal reflux disease) Neuropathy Functional capacity: independent ambulation Social History Household Members: Other Household Members Other:: Mother Housing: Apartment Do you presently have visiting nurse or other home services: No Alcohol intake: current Patient Tobacco Use Status: Current someday Tobacco user Tobacco use type: Cigarette Cigarette Packs Per Day: 1 Cigarettes Per Day: 10 Years Smoked: 25 Second Hand Smoke Exposure: Yes Substance Use Type: Marijuana Advance Directives: No service: No Current occupational status: unemployed Sexual orientation: Straight/Heterosexual Meds Allergies Allergy/AdvReac Type Severity Reaction Status Date / Time No Known Allergies Allergy Verified 10/05/20 15:39 Active Medications: Current Medications Sodium Chloride (Ns) 1,000 mls @ 999 mls/hr IV .Q1H1M ONE Stop: 08/13/22 23:20 Last Admin: 08/13/22 22:55 Dose: 999 mls/hr Azithromycin 500 mg/ Sodium (Chloride) 250 mls @ 125 mls/hr IV ONCE ONE Stop: 08/14/22 00:19 Azithromycin 500 mg/ Sodium (Chloride) 250 mls @ 125 mls/hr IV DAILY COUNTS INCLUDE 234 BEDS AT THE [facility] Ceftriaxone Sodium 1 gm/ (Sodium Chloride) 50 mls @ 100 mls/hr IV DAILY COUNTS INCLUDE 234 BEDS AT THE [facility] Pharmacy Consult (Consult Rx Perform Med Rec) 1 each MISCELLANE ONCE PRN PRN Reason: Consult order Home Medications Medication Instructions Recorded Confirmed Last Taken Type No Known Home Meds 04/28/22 04/28/22 Unknown History Physical Exam Vital Signs and Narrative: Vital Signs: Last Vital Signs Temp 99.1 F 08/13/22 22:21 Pulse 73 08/13/22 22:21 Resp 20 08/13/22 22:21 BP 146/82 H 08/13/22 22:21 Pulse Ox 95 08/13/22 22:21 O2 Del Method 08/13/22 22:21 BMI result Body Mass Index 18.6 Middle-aged male lying in bed in no distress Neck supple, no JVD Regular rate and rhythm, S1-S2 heard Regular breath sounds bilaterally, right sided crackles without wheeze Abdomen soft nontender, no guarding, no rigidity Patient is awake, alert and oriented to self, place, time and person ; no focal motor deficit Psych: Normal mood No pedal edema Results Labs CBC and Chem 7: 08/13/22 11:04 08/13/22 11:04 Labs: Laboratory Results - last 24 hr 08/13/22 08/13/22 08/13/22 11:02 11:04 11:04 MCV 106.2 H MCH 37.2 H MCHC 35.1 RDW 12.4 Plt Count 52 L MPV 9.6 Immature Gran % (Auto) 0.5 H Neut % (Auto) 86.5 H Lymph % (Auto) 6.4 L [place] % (Auto) 6.1 Eos % (Auto) 0.0 Baso % (Auto) 0.5 Lymph # (Auto) 1.1 L [place] # (Auto) 1.1 Eos # (Auto) 0.0 Baso # (Auto) 0.1 Abs Immat Gran (auto) 0.08 H Absolute Neuts (auto) 15.3 H Absolute Nucleated RBC 0.000 Nucleated RBC % (auto) 0.0 Anion Gap 20 Estim Creat Clear Calc 115.1 Estimated GFR > 60 Random Glucose 88 Calcium 8.6 Troponin I High Sens Influenza Type A (ANDREW) Negative Influenza Type B (ANDREW) Negative Influenza A & B Note See Note 08/13/22 11:04 MCV MCH MCHC RDW Plt Count MPV Immature Gran % (Auto) Neut % (Auto) Lymph % (Auto) [place] % (Auto) Eos % (Auto) Baso % (Auto) Lymph # (Auto) [place] # (Auto) Eos # (Auto) Baso # (Auto) Abs Immat Gran (auto) Absolute Neuts (auto) Absolute Nucleated RBC Nucleated RBC % (auto) Anion Gap Estim Creat Clear Calc Estimated GFR Random Glucose Calcium Troponin I High Sens 5.7 Influenza Type A (ANDREW) Influenza Type B (ANDREW) Influenza A & B Note Imaging Radiologist's Impressions: Impressions Chest X-Ray 08/13/22 12:06 IMPRESSION: The patchy, hazy opacities in lower lung zones suggest presence of pneumonia or aspiration pneumonitis. No pleural effusion. Assessment and Plan (1) Pneumonia: Status: Acute (2) Tobacco use: Status: Acute (3) Alcohol use: Status: Acute Plan This is a 41-year-old male with no pertinent past medical history and not on prescription medications who presents to the emergency department for evaluation of pleuritic chest discomfort. #. Sepsis due to community-acquired pneumonia - Will admit patient and initiate IV unasyn in this patient with alcohol use disorder, ?aspiration. Sputum culture pending. Blood cultures and lactic acid obtained in the ER. Resuscitated with IV crystalloids in the ER. COVID pending #. Tobacco use disorder - will provide nicotine patch while in the hospital #. Alcohol use disorder - monitor for withdrawal #. Macrocytic anemia -likely due to alcohol use. Check folic acid and Vitb12 #. Thrombocytopenia, chronic -due to alcohol use. Need outpatient f/u. No signs of bleeding DVT prophylaxis: Mechanical. Defer lovenox due to thrombocytopenia Full code Regular diet Admit as inpatient and will require two night minimum hospital stay for IV antibiotics and IV fluid resuscitation Quality Stroke Does the patient have a stroke diagnosis?: No VTE Prior VTE?: No VTE Risk Level:: Medical - low VTE Device Contraindication: N/A - Device Ordered VTE Drug Contraindication: Treatment Not Indicated
[2022-08-13 23:09] LABS: Lactic Acid 1.1 mmol/L (0.5-2.0)
[2022-08-13 23:14] LABS: COVID-19 Test Negative (Negative)
[2022-08-13] MEDS: Morphine Sulfate 2 MG/ML CARTRIDGE IVPUSH (23:14)
[2022-08-13] MEDS: Azithromycin 500 MG in 0.9 % Sodium Chloride 250 ML 125 MG IV (23:20)
[2022-08-13 23:34] VITALS: BP 153/84; PULSE 93; RESP 14; TEMP 37; O2SAT 98
[2022-08-13] MEDS: Nicotine 14 MG PATCH.TD24 TRANSDERMA (23:50)
[2022-08-13] MEDS: Ampicillin Sodium/Sulbactam Na 3 GM in 0.9 % Sodium Chloride 100 ML IV (23:51)
[2022-08-14] VITALS (9 sets, daily range): BP systolic 127–147; BP diastolic 67–92; PULSE 60–77; RESP 12–20; TEMP 36.5–37.2; O2SAT 95–100; BMI 18.6
[2022-08-14] MEDS: ondansetron HCL 4 MG/2 ML VIAL IVPUSH (00:04)
--- NOTE | 2022-08-14 01:56 | PC.NURSE ---
Pt sleeping at this time. Breaths are even and unlabored with equal chest rises. Will continue to monitor.
[2022-08-14] MEDS: Ampicillin Sodium/Sulbactam Na 3 GM in 0.9 % Sodium Chloride 100 ML IV ×3 (05:55→16:41)
[2022-08-14 06:54] LABS: MANUAL DIFF FLAG NO
[2022-08-14 06:58] LABS: Basophils Percent Auto 0.3 % (0-2); Eosinophils Percent Auto 0.4 % (0-4); Hematocrit 31.6 % (42.0-52.0); Hemoglobin 10.6 g/dl (14.0-18.0); Imm Gran Abs Auto 0.06 X10*3/uL (0.00-0.03); Imm Gran Pct Auto 0.6 % (0.0-0.4); Lymphocytes Absolute Auto 1.3 X10*3/uL (1.2-4.9); Lymphocytes Percent Auto 13.4 % (20-40); Mean Corpuscular HGB Conc 33.5 g/dl (31.0-36.0); Mean Corpuscular Hemoglobin 36.1 pg (27.0-33.0); Mean Corpuscular Volume 107.5 fL (80.0-98.0); Mean Platelet Volume 10.4 fL (9.4-12.4); Monocytes Absolute Auto 0.8 X10*3/uL (0.1-1.2); Monocytes Percent Auto 7.9 % (2-11); Neutrophils Absolute Auto 7.4 x10*3/uL (2.0-8.3); Neutrophils Percent Auto 77.4 % (45-73); Platelet Count 47 X10*3/uL (160-400); Red Blood Count 2.94 X10*6/uL (4.60-5.80); Red Cell Distribution Width 12.2 % (11.0-16.0); White Blood Count 9.6 X10*3/uL (4.8-10.8)
[2022-08-14 07:15] LABS: Anion Gap 18 (12-20); Blood Urea Nitrogen 16 mg/dL (9-16); Calcium 8.2 mg/dL (8.4-10.2); Carbon Dioxide 25 mmol/L (22-29); Chloride 98 mmol/L (96-108); Creatinine Clr Calc Pharmacy 124.1; Estimated Glomerular Filt Rate > 60; Glucose Random 84 mg/dL (60-115); Potassium 3.5 mmol/L (3.3-5.1); Sodium 137 mmol/L (135-145)
[2022-08-14 08:17] LABS: Folate 3.3 ng/mL (> or = 4.0); Vitamin B12 312 pg/mL (200-900)
--- NOTE | 2022-08-14 08:45 | PHA.MEDREC ---
Pharmacy Consult ? Medication Reconciliation Pharmacy has completed the medication reconciliation.
[2022-08-14] MEDS: 0.9 % Sodium Chloride Flush 3 ML SYRINGE IVFLUSH ×3 (09:41→19:43)
[2022-08-14] MEDS: Nicotine 14 MG PATCH.TD24 TRANSDERMA (09:41)
--- NOTE | 2022-08-14 15:44 | HO.PM.IMPN ---
Subjective Subjective Date of Service: 08/14/22 Interval History: Notes improvement since hospitalized Review of Systems Denies chest pain Admits to shortness of breath which is improved Denies nausea vomiting diarrhea Denies fever chills Physical Exam Vital Signs: Vital Signs: Last Vital Signs Temp 98.6 F 08/14/22 10:37 Pulse 74 08/14/22 10:37 Resp 12 08/14/22 10:37 BP 147/92 H 08/14/22 10:37 Pulse Ox 98 08/14/22 07:16 O2 Del Method 08/14/22 07:16 BMI result Body Mass Index 18.6 Const: Other: No acute issues overnight Resp: Other: Diminished throughout.. Scant bilateral crackles with expiratory wheezes Cardio: Other: No S4; positive S1-S2; no S3 murmurs rubs or gallops GI: Other: Soft nontender nondistended normoactive bowel sounds Extrem: Other: No edema Objective Data Active Medications Acetaminophen (Acetaminophen 325 Mg Tablet) 650 mg PO Q6H PRN PRN Reason: Pain, Mild (Pain Scale 1-3) Ampicillin Sodium/Sulbactam (Sodium 3 gm/ Sodium Chloride) 100 mls @ 200 mls/hr IV Q6H [facility] Last Infusion: 08/14/22 13:01 Dose: 0 mls/hr Documented By: YOLANDA Melatonin (Melatonin 3 Mg Tablet) 6 mg PO BEDTIME PRN PRN Reason: Insomnia Nicotine (Nicotine 14 Mg Patch.Td24) 14 mg TRANSDERMA DAILY [facility] Last Admin: 08/14/22 09:41 Dose: 14 mg Documented By: LIVIA Ondansetron HCl (Ondansetron Hcl 4 Mg/2 Ml Vial) 4 mg IVPUSH Q8H PRN PRN Reason: Nausea and Vomiting Last Admin: 08/14/22 00:04 Dose: 4 mg Documented By: WALLY Pharmacy Consult (Consult Rx Perform Med Rec) 1 each MISCELLANE ONCE PRN PRN Reason: Consult order Sodium Chloride (0.9 % Sodium Chloride Flush 3 Ml Syringe) 3 ml IVFLUSH QSHIFT [facility] Last Admin: 08/14/22 09:41 Dose: 3 ml Documented By: LIVIA Labs CBC & Chem 7: 08/14/22 05:46 08/14/22 05:46 Labs: Laboratory Results - last 24 hr 08/13/22 08/13/22 08/14/22 22:52 22:52 05:46 MCV 107.5 H MCH 36.1 H MCHC 33.5 RDW 12.2 Plt Count 47 L MPV 10.4 Immature Gran % (Auto) 0.6 H Neut % (Auto) 77.4 H Lymph % (Auto) 13.4 L [place] % (Auto) 7.9 Eos % (Auto) 0.4 Baso % (Auto) 0.3 Lymph # (Auto) 1.3 [place] # (Auto) 0.8 Eos # (Auto) 0.0 Baso # (Auto) 0.0 Abs Immat Gran (auto) 0.06 H Absolute Neuts (auto) 7.4 Absolute Nucleated RBC 0.000 Nucleated RBC % (auto) 0.0 Anion Gap Estim Creat Clear Calc Estimated GFR Random Glucose Lactic Acid 1.1 Calcium Vitamin B12 Folate COVID-19 (MUSHTAQ) Negative COVID-19 Clin Com See Note 08/14/22 08/14/22 05:46 05:46 MCV MCH MCHC RDW Plt Count MPV Immature Gran % (Auto) Neut % (Auto) Lymph % (Auto) [place] % (Auto) Eos % (Auto) Baso % (Auto) Lymph # (Auto) [place] # (Auto) Eos # (Auto) Baso # (Auto) Abs Immat Gran (auto) Absolute Neuts (auto) Absolute Nucleated RBC Nucleated RBC % (auto) Anion Gap 18 Estim Creat Clear Calc 124.1 Estimated GFR > 60 Random Glucose 84 Lactic Acid Calcium 8.2 L Vitamin B12 312 Folate 3.3 L COVID-19 (MUSHTAQ) COVID-19 Clin Com Microbiology Microbiology Results: Microbiology 08/14/22 09:55 Gram Stain - Final Sputum - Expectorated Assessment and Plan (1) Pneumonia: Status: Acute (2) Alcohol use: Status: Acute Plan This is a 41-year-old male with no pertinent past medical history and not on prescription medications who presents to the emergency department for evaluation of pleuritic chest discomfort. 1.Community-acquired pneumonia -continue Unasyn as ordered -titrate O2 as tolerated 2.Tobacco use disorder - Nicoderm patch 3. Alcohol use disorder - monitor for withdrawal Pneumatics Full code Requires ongoing hospitalization for IV antibiotics to treat community-acquired pneumonia Quality Stroke Does the patient have a stroke diagnosis?: No VTE Prior VTE?: No VTE Risk Level:: Medical - low VTE Device Contraindication: N/A - Device Ordered VTE Drug Contraindication: Treatment Not Indicated
--- NOTE | 2022-08-14 18:19 | MHC.CM.PN ---
CM met with admitted patient in ED overflow with bed assignment 383. A&Ox4. Declines HCP. Unvaccinated for Covid. Pt states he knows people who were vaccinated and still got Covid. Pt educated that being vaccinated, especially with existing medical issues can keep you from needing to be hospitalized with Covid or getting very sick. Pt is unemployed. Lives with mother. Uses a nebulizer. No services. D/C plan is home without services. Pt to arrange transportation. CM to follow for discharge needs.
[2022-08-15] MEDS: Ampicillin Sodium/Sulbactam Na 3 GM in 0.9 % Sodium Chloride 100 ML IV ×3 (00:38→11:19)
[2022-08-15] MEDS: Acetaminophen 325 MG TABLET 650 MG PO ×2 (01:18→07:39)
[2022-08-15 03:15] VITALS: BP 135/92; PULSE 67; RESP 16; TEMP 37; O2SAT 100
[2022-08-15 06:46] LABS: MANUAL DIFF FLAG NO
[2022-08-15 07:01] LABS: Basophils Percent Auto 0.5 % (0-2); Eosinophils Absolute Auto 0.1 X10*3/uL (0.0-0.4); Eosinophils Percent Auto 1.2 % (0-4); Hematocrit 28.2 % (42.0-52.0); Hemoglobin 9.7 g/dl (14.0-18.0); Imm Gran Abs Auto 0.05 X10*3/uL (0.00-0.03); Imm Gran Pct Auto 0.9 % (0.0-0.4); Lymphocytes Absolute Auto 1.2 X10*3/uL (1.2-4.9); Lymphocytes Percent Auto 21.4 % (20-40); Mean Corpuscular HGB Conc 34.4 g/dl (31.0-36.0); Mean Corpuscular Hemoglobin 36.5 pg (27.0-33.0); Mean Platelet Volume 10.7 fL (9.4-12.4); Monocytes Absolute Auto 0.5 X10*3/uL (0.1-1.2); Monocytes Percent Auto 8.8 % (2-11); Neutrophils Absolute Auto 3.8 x10*3/uL (2.0-8.3); Neutrophils Percent Auto 67.2 % (45-73); Red Blood Count 2.66 X10*6/uL (4.60-5.80); Red Cell Distribution Width 12.1 % (11.0-16.0); White Blood Count 5.7 X10*3/uL (4.8-10.8)
[2022-08-15 07:02] LABS: Platelet Count 46 X10*3/uL (160-400)
[2022-08-15 07:20] LABS: Alanine Aminotransferase 24 U/L (0-40); Alkaline Phosphatase 52 U/L (39-117); Aspartate Amino Transferase 52 U/L (5-37); Bilirubin Total 0.8 mg/dL (0.0-1.0); Blood Urea Nitrogen 11 mg/dL (9-16); Calcium 7.2 mg/dL (8.4-10.2); Creatinine Clr Calc Pharmacy 107.2; Estimated Glomerular Filt Rate > 60; Glucose Fasting 69 mg/dL (60-99); Total Protein 6.2 g/dL (6.5-8.0)
[2022-08-15] MEDS: Nicotine 14 MG PATCH.TD24 TRANSDERMA (07:39)
[2022-08-15] MEDS: 0.9 % Sodium Chloride Flush 3 ML SYRINGE IVFLUSH (07:40)
[2022-08-15 07:44] LABS: Anion Gap 23 (12-20); Carbon Dioxide 24 mmol/L (22-29); Chloride 105 mmol/L (96-108); Sodium 149 mmol/L (135-145)
[2022-08-15 07:49] VITALS: BP 139/88; PULSE 64; RESP 17; TEMP 36.7; O2SAT 100
[2022-08-15] MEDS: Potassium Chloride Packet 20 MEQ PACKET 40 MEQ PO (08:39)
--- NOTE | 2022-08-15 12:41 | PM.DS ---
DS: Providers Provider Date of Service: 08/15/22 Date of admission: 08/13/22 23:03 Date of discharge: 08/15/22 Primary care physician: AMERICO Ching DS: Diagnosis Discharge Diagnosis (1) Pneumonia: Status: Acute (2) Alcohol use: Status: Acute DS: Summary Hospital Course Hospital Course: ?41-year-old male with no pertinent past medical history and not on prescription medications who presents to the emergency department for evaluation of pleuritic chest discomfort.? Patient states it started about 4 days prior to presentation, worse with inspiration, midsternal, nonradiating, constant, progressive and without any relieving factors.? It is associated with chills and productive cough.? Initially sputum was clear but subsequently it has changed to yellowish in color.? No similar symptoms in the past.? No sick contacts.? No recent travel.? Did have upper respiratory symptoms including runny nose about 3-4 days ago.? No trauma to the chest wall.? Patient denies nausea, vomiting, abdominal discomfort, palpitations, changes in urinary or bowel habits In the emergency department, sirs was positive and patient was found to have right-sided infiltrate on x-ray [facility] Admitted to hospital and started on Unasyn. Over the next 48 hours he improved dramatically and is requesting discharge to home. This adjusto writer operator checked ambulatory sats on patient on room air and all were 92 or above. The morning of admission he did develop some wheezes so he will be discharged with a course of doxycycline/Ceftin/prednisone taper. He can follow up with PCP in 2 weeks Time Spent with Patient Time attestation: Total time spent providing and/or coordinating discharge services: Discharge coordination time: Greater than 30 minutes Quality: Safe Use of Opioids Does Pt have an Active Cancer Diagnosis on the Problem List?: No Quality: Stroke Does the patient have a stroke diagnosis?: No Physical Exam Vital Signs: Vital Signs: Last Vital Signs Temp 98.1 F 08/15/22 07:49 Pulse 64 08/15/22 07:49 Resp 17 08/15/22 07:49 BP 139/88 08/15/22 07:49 Pulse Ox 100 08/15/22 07:49 O2 Del Method 08/15/22 07:49 BMI result Body Mass Index 18.6 Const: Other: No acute issues overnight Resp: Other: Diminished throughout.. Scant bilateral crackles with expiratory wheezes Cardio: Other: No S4; positive S1-S2; no S3 murmurs rubs or gallops GI: Other: Soft nontender nondistended normoactive bowel sounds Extrem: Other: No edema DS: Data Data Completed and Pending Completed studies during hospitalization [Text1]: Procedures Detoxification Services for Substance Abuse Treatment (09/13/20) Labs on day of discharge: Laboratory Results - last 24 hr 08/15/22 08/15/22 05:38 05:38 WBC 5.7 RBC 2.66 L Hgb 9.7 L Hct 28.2 L MCV 106.0 H MCH 36.5 H MCHC 34.4 RDW 12.1 Plt Count 46 L MPV 10.7 Immature Gran % (Auto) 0.9 H Neut % (Auto) 67.2 Lymph % (Auto) 21.4 [place] % (Auto) 8.8 Eos % (Auto) 1.2 Baso % (Auto) 0.5 Lymph # (Auto) 1.2 [place] # (Auto) 0.5 Eos # (Auto) 0.1 Baso # (Auto) 0.0 Abs Immat Gran (auto) 0.05 H Absolute Neuts (auto) 3.8 Absolute Nucleated RBC 0.000 Nucleated RBC % (auto) 0.0 Sodium 149 H Potassium 3.0 L Chloride 105 Carbon Dioxide 24 Anion Gap 23 H BUN 11 Creatinine 0.74 Estim Creat Clear Calc 107.2 Estimated GFR > 60 Fasting Glucose 69 Calcium 7.2 L D Total Bilirubin 0.8 AST 52 H ALT 24 Alkaline Phosphatase 52 Total Protein 6.2 L Albumin 3.0 L Preliminary micro results at discharge 08/14/22 09:55 Sputum Culture - Preliminary Sputum - Expectorated Culture in progress. 08/13/22 22:52 Blood Culture - Preliminary Blood - Venous No growth after 24 hours. 08/13/22 22:52 Blood Culture - Preliminary Blood - Venous No growth after 24 hours. Discharge Plan Discharge Anticipated Discharge Date/Time: 08/15/22 12:36 Patient Disposition: Home, Self-Care Discharge Diagnosis: Community-acquired pneumonia Referrals: Emily Perez PA [Primary Care Provider] - 1 Week Discharge Medications: New doxycycline hyclate 100 mg tablet 100 mg PO BID Qty: 20 0RF cefuroxime axetil 500 mg tablet 500 mg PO BID 10 Days Qty: 20 0RF prednisone 10 mg tablet See Rx Instructions .Route .COMPLEX Qty: 45 0RF Rx Instructions: 10 mg orally; 5 tabs p.o. daily x3 days; 4 tabs p.o. daily x3 days; 3 tabs daily x3 days; 2 tabs daily x3 days; 1 tab daily x3 days albuterol sulfate 90 mcg/actuation HFA aerosol inhaler 2 puff inhalation Q6H PRN (Reason: shortness of breath or wheezing) Qty: 8.5 0RF Discharge Orders: Discharge Order (Routine); Ordered 08/15/22 Ordered By: Uri Brown Diet: Advance to usual diet Activity on Discharge: As tolerated Stand Alone Forms: Patient Portal Discharge page Care Plan Goals: Attempt to quit smoking Health Concerns: Follow-up PT PCP in 2 weeks Plan of Treatment: Complete course of doxycycline/Ceftin/prednisone taper/albuterol inhaler q.4 hours for wheezing Assessment: See discharge plan
--- NOTE | 2022-08-15 12:46 | MHC.CM.PN ---
HOME - SELF CARE. RN AWARE OF PLAN.
--- NOTE | 2022-08-19 12:24 | P.CDIR_ITS ---
Retrospective Query PHYSICIAN'S DOCUMENTATION REQUEST Date of Query: 08/19/22 1224 Patient Name: Tyrone Mao Admit Date: 08/13/22 Dear Doctor, A review of the medical record indicates additional documentation may be needed. Please review below and update the documentation accordingly. Clinical Indicators: The diagnosis of [Diagnosis] was documented on [date] but is not consistently noted in subsequent documentation. Risk Factors/Clinical Indicators/Treatments ED 08/13 - No sepsis criteria, patient met Sirs criteria with tachycardia & leukocytosis. Antibiotics WBC 17.7 H&P - Sepsis due to community acquired pneumonia IV unasyn ? aspiration. Cxr - hazy opacities in lower lung suggestive presence of pneumonia or aspiration pneumonia. Please clarify the following: Sepsis/Sirs, resolved, poa, treating, ruled out etc. * [Diagnosis] was present on admission and is now resolved * [Diagnosis] was present on admission and is still being monitored, evaluated, or treated * [Diagnosis] was ruled out * [Diagnosis] is still a likely, suspected, probable diagnosis * Other (please specify) * Unable to determine Use of terms such as suspected, likely, concern for, or probable (associated with a specific diagnosis that is being evaluated, monitored, or treated as if it exists) are acceptable and can be coded in the inpatient setting, when documented at the time of discharge. Thank you, Francesca Wagoner [facility], [facility] Extension: [phone] Please use your independent medical judgment in providing your response. THIS QUERY IS PART OF THE PERMANENT MEDICAL RECORD
== END 2022-08-15 12:58 | disposition home or self-care (01) | DRG 139 ==
LOC: HO.ED 22:45 → HO.EDOVER 23:20 → HO.S3 08-14 16:56
PROVIDERS: Admitting Provider Student in an Organized Health Care Education/Training Program; Emergency Provider Emergency Medicine; PCP Physician Assistant; Visit Provider Hospitalist
DX: J18.9 Pneumonia, unspecified organism (principal); D69.59 Other secondary thrombocytopenia; D53.9 Nutritional anemia, unspecified; F17.210 Nicotine dependence, cigarettes, uncomplicated; K21.9 Gastro-esophageal reflux disease without esophagitis; Z20.822 Contact with and (suspected) exposure to COVID-19; Z71.6 Tobacco abuse counseling; Z79.899 Other long term (current) drug therapy
CPT/HCPCS: 36415; 71046; 80048; 80053; 82607; 82746; 83605; 84484; 85025; 87040; 87070; 87205; 87502; 87635; 93005; 99285; J0295; J0456; J0696; J2270; J2405

== ENCOUNTER 2022-10-03 14:12 | Emergency (ER) | payer MEDICAID, SELFPAY ==
[2022-10-03] VITALS (10 sets, daily range): BP systolic 116–135; BP diastolic 76–92; PULSE 62–108; RESP 14–20; O2SAT 92–97; BMI 20.5
--- NOTE | 2022-10-03 14:15 | PC.NURSE ---
pt on arrival continues to try to punch at himself even though he is being restraint. pt is placed in 4 point restraints [place] [facility] pt is told and understands the need for restraint. pt remains in his street clothing at this time. pt states + si.
--- NOTE | 2022-10-03 14:29 | ED.GENADULT ---
HPI - General Adult General Chief complaint: Psychiatric Symptoms <AMERICO Faust - Last Filed: 10/03/22 17:40> Stated complaint: SEC 12, SI <AMERICO Faust - Last Filed: 10/03/22 17:40> Time Seen by Provider: 10/03/22 14:28 <AMERICO Faust - Last Filed: 10/03/22 17:40> Source: patient and EMS <AMERICO Faust Last Filed: 10/03/22 17:40> Mode of arrival: EMS <AMERICO Faust Last Filed: 10/03/22 17:40> Limitations: no limitations <AMERICO Faust Last Filed: 10/03/22 17:40> History of Present Illness HPI narrative: Patient is a 41 year old assigned male at with a history of alcohol use presenting to the emergency department today with suicidal ideation. Patient states that he is under a lot of stress at [facility] with his mother and his sister and he wants to kill himself. EMS states that the patient was punching himself in the face and they had to physically restrain him. Patient denies any dizziness, lightheadedness, abdominal pain, nausea, vomiting, fever, chills, blurry vision, double vision, loss of vision, chest pain, difficulty breathing, shortness of breath, back pain, night sweats, pain with urination, increased urinary frequency, increased urinary urgency, blood in his urine or stool, syncope or a near syncopal episode, recent trauma or falls, bowel incontinence, bladder incontinence, bowel retention, bladder retention, or any other complaints at this time. <AMERICO Faust - Last Filed: 10/03/22 17:40> Onset (ago): day(s) <AMERICO Faust - Last Filed: 10/03/22 17:40> Severity: moderate <AMERICO Faust - Last Filed: 10/03/22 17:40> Severity scale (1-10): 3 <AMERICO Faust - Last Filed: 10/03/22 17:40> Relieving factors: none <AMERICO Faust Last Filed: 10/03/22 17:40> Exacerbating factors: none <AMERICO Faust - Last Filed: 10/03/22 17:40> Associated symptoms: denies other symptoms <AMERICO Faust - Last Filed: 10/03/22 17:40> Treatments prior to arrival: none <AMERICO Faust - Last Filed: 10/03/22 17:40> Related Data Home medications: Previous Rx's Medication Instructions Recorded albuterol sulfate 90 mcg/actuation 2 puff inhalation Q6H PRN 08/15/22 aerosol inhaler shortness of breath or wheezing #8.5 grams <AMERICO Faust - Last Filed: 10/03/22 17:40> Allergies/adverse reactions: Allergies Allergy/AdvReac Type Severity Reaction Status Date / Time No Known Allergies Allergy Verified 10/05/20 15:39 <AMERICO Faust - Last Filed: 10/03/22 17:40> Review of Systems Constitutional: Constitutional: Reports no additional constitutional complaints, Denies chills, Denies fever(s) and Denies night sweats <AMERICO Faust Last Filed: 10/03/22 17:40> Eyes: Eyes: Reports no additional eye complaints, Denies blurry vision, Denies change in vision, Denies diplopia, Denies eye discharge, Denies loss of vision and Denies eye pain <AMERICO Faust - Last Filed: 10/03/22 17:40> ENT: Denies dizziness <AMERICO Faust - Last Filed: 10/03/22 17:40> Cardiovascular: Cardiovascular: Reports no additional cardiovascular complaints, Denies chest pain, Denies lightheadedness, Denies Loss of Consciousness and Denies dyspnea <AMERICO Faust - Last Filed: 10/03/22 17:40> Respiratory: Respiratory: Reports no additional respiratory complaints and Denies dyspnea <AMERICO Faust Last Filed: 10/03/22 17:40> Gastrointestinal: Gastrointestinal: Reports no additional gastrointestinal complaints, Denies abdominal pain, Denies melena, Denies hematochezia, Denies change in bowel habits and Denies change in stool character <AMERICO Faust - Last Filed: 10/03/22 17:40> Genitourinary: Genitourinary: Reports no additional male genitourinary complaints, Denies hematuria, Denies oliguria, Denies difficulty urinating, Denies dysuria, Denies urinary frequency, Denies urinary hesitancy, Denies urinary incontinence and Denies urinary urgency <AMERICO Faust - Last Filed: 10/03/22 17:40> Musculoskeletal: Musculoskeletal: Reports no additional musculoskeletal complaints, Denies numbness and Denies tingling <AMERICO Faust - Last Filed: 10/03/22 17:40> Neurologic: Denies dizziness, Denies loss of vision, Denies numbness and Denies tingling <AMERICO Faust - Last Filed: 10/03/22 17:40> Psychiatric: Psychiatric: Reports irritability and Reports suicidal ideation <AMERICO Faust - Last Filed: 10/03/22 17:40> Endocrine: Endocrine: Reports no additional endocrine complaints <AMERICO Faust - Last Filed: 10/03/22 17:40> Hematologic/Lymphatic: Hematologic/Lymphatic: Reports no additional hematologic/lymphatic complaints <AMERICO Faust - Last Filed: 10/03/22 17:40> Allergic/Immunologic: Allergic/Immunologic: Reports no additional allergic/immunologic complaints <AMERICO Faust - Last Filed: 10/03/22 17:40> [facility] Past Medical History Attestation statement: The following information was validated with the patient. <AMERICO Faust - Last Filed: 10/03/22 17:40> Source: old records reviewed and nursing notes reviewed <AMERICO Faust - Last Filed: 10/03/22 17:40> Medical History: Medical History Depression ETOH abuse GERD (gastroesophageal reflux disease) Neuropathy <AMERICO Faust - Last Filed: 10/03/22 17:40> Social History Social History: Social History Household Members: Other Household Members Other:: mother Housing: Apartment Do you presently have visiting nurse or other home services: No Alcohol intake: unknown Patient Tobacco Use Status: Current everyday Tobacco user Tobacco use type: Cigarette Cigarette Packs Per Day: 0.5 Cigarettes Per Day: 10.0 Years Smoked: 25 Smoked in Last 30 Days: No Second Hand Smoke Exposure: Yes Use of substances other than those prescribed or required for medical reasons: Unknown Substance Use Type: Marijuana Last Used Substance: Unknown Advance Directives: No Advance Directives Information Provided: No service: No Current occupational status: unemployed Sexual orientation: Straight/Heterosexual <AMERICO Faust - Last Filed: 10/03/22 17:40> Physical Exam ED Vital Signs: Vital Signs - 24 hr 10/03/22 14:15 10/03/22 14:15 10/03/22 14:30 Temperature Pulse Rate 108 H Respiratory Rate 16 16 16 Blood Pressure 135/92 H Pulse Oximetry 97 Oxygen Delivery Method Room Air 10/03/22 14:45 10/03/22 15:00 10/03/22 15:15 Temperature Pulse Rate 81 Respiratory Rate 16 14 14 Blood Pressure 116/76 Pulse Oximetry 92 Oxygen Delivery Method Room Air 10/03/22 18:15 10/03/22 18:30 10/03/22 18:45 Temperature Pulse Rate 62 Respiratory Rate 18 20 17 Blood Pressure 131/86 Pulse Oximetry 96 Oxygen Delivery Method Room Air 10/03/22 19:00 10/03/22 19:15 10/04/22 06:13 Temperature 97.8 F Pulse Rate 85 Respiratory Rate 19 18 17 Blood Pressure 124/85 Pulse Oximetry 97 Oxygen Delivery Method Room Air BMI result Body Mass Index 20.5 <AMERICO Faust - Last Filed: 10/03/22 17:40> Vital Signs - 24 hr 10/03/22 14:15 10/03/22 14:15 10/03/22 14:30 Temperature Pulse Rate 108 H Respiratory Rate 16 16 16 Blood Pressure 135/92 H Pulse Oximetry 97 Oxygen Delivery Method Room Air 10/03/22 14:45 10/03/22 15:00 10/03/22 15:15 Temperature Pulse Rate 81 Respiratory Rate 16 14 14 Blood Pressure 116/76 Pulse Oximetry 92 Oxygen Delivery Method Room Air 10/03/22 18:15 10/03/22 18:30 10/03/22 18:45 Temperature Pulse Rate 62 Respiratory Rate 18 20 17 Blood Pressure 131/86 Pulse Oximetry 96 Oxygen Delivery Method Room Air 10/03/22 19:00 10/03/22 19:15 10/04/22 06:13 Temperature 97.8 F Pulse Rate 85 Respiratory Rate 19 18 17 Blood Pressure 124/85 Pulse Oximetry 97 Oxygen Delivery Method Room Air BMI result Body Mass Index 20.5 <Melissa Phelps MD - Last Filed: 10/04/22 12:02> Const General: cooperative, no acute distress, alert and awake <AMERICO Faust - Last Filed: 10/03/22 17:40> Nutritional Appearance: well nourished <AMERICO Faust - Last Filed: 10/03/22 17:40> Orientation/consciousness: patient oriented x3 <AMERICO Faust - Last Filed: 10/03/22 17:40> Limitations: no limitations <AMERICO Faust - Last Filed: 10/03/22 17:40> HENMT Head: Yes normal to inspection and Yes atraumatic <AMERICO Faust - Last Filed: 10/03/22 17:40> Ears: hearing grossly normal bilaterally and external ears normal <AMERICO Faust - Last Filed: 10/03/22 17:40> General nose exam: Normal external nose present, no nasal discharge noted and no epistaxis <AMERICO Faust - Last Filed: 10/03/22 17:40> Face and sinus: Yes normal facial exam, No abrasion and No laceration <AMERICO Faust - Last Filed: 10/03/22 17:40> Mouth: Normal oral and palatal mucosa present, no drooling and no muffled voice <AMERICO Faust - Last Filed: 10/03/22 17:40> Eyes General: appearance normal, both eyes and all related structures <AMERICO Faust - Last Filed: 10/03/22 17:40> Periorbital: periorbital findings normal <AMERICO Faust - Last Filed: 10/03/22 17:40> Eyelids: Yes eyelids normal <AMERICO Faust - Last Filed: 10/03/22 17:40> Conjunctivae: conjunctivae normal <AMERICO Faust - Last Filed: 10/03/22 17:40> Pupils: Equal, round and reactive pupils present <AMERICO Faust - Last Filed: 10/03/22 17:40> EOM: EOMs intact bilaterally <AMERICO Faust - Last Filed: 10/03/22 17:40> Neck Neck: Yes normal visual inspection, Yes full ROM and Yes no lymphadenopathy <Milagro Pride PR - Last Filed: 10/03/22 17:40> Chest Chest palpation & inspection: normal inspection of the chest <Milagro Pride PA - Last Filed: 10/03/22 17:40> Resp Effort & Inspection: normal respiratory effort and able to speak in complete sentences <Milagro Pride PR - Last Filed: 10/03/22 17:40> Auscultation: clear to auscultation bilaterally <Milagro Pride PR - Last Filed: 10/03/22 17:40> Cardio Rate: regular rate <Milagro Pride PR - Last Filed: 10/03/22 17:40> Rhythm: regular rhythm <Milagro Pride PR - Last Filed: 10/03/22 17:40> GI Inspection: Yes normal to inspection <Milagro Pride AMERICO - Last Filed: 10/03/22 17:40> Palpation (GI): Soft to palpation, not firm, nontender and no guarding <Milagro Pride PR - Last Filed: 10/03/22 17:40> Neuro General: patient oriented x3 and moves all extremities <Milagro Pride PR - Last Filed: 10/03/22 17:40> Cranial nerves: Yes Equal, round and reactive pupils present <Milagro Pride PR - Last Filed: 10/03/22 17:40> Cognition (Neuro): normal cognition <Milagro Pride AMERICO - Last Filed: 10/03/22 17:40> Motor exam (neuro): 5/5 motor strength present throughout <Milagro Pride AMERICO - Last Filed: 10/03/22 17:40> Sensory Exam: Normal double simultaneous stimulation for sensation <Milagro Pride PA - Last Filed: 10/03/22 17:40> Coordination: [id number] test normal <Milagro Pride PR - Last Filed: 10/03/22 17:40> Extrem General: Yes normal to inspection, Yes full ROM and Yes capillary refill normal <Milagro Pride PR - Last Filed: 10/03/22 17:40> Psych Mental Status: mental status grossly normal <AMERICO Faust - Last Filed: 10/03/22 17:40> Speech and movement: Normal speech and movement present <AMERICO Faust - Last Filed: 10/03/22 17:40> Affect: Irritable affect present <AMERICO Faust - Last Filed: 10/03/22 17:40> Attitude: Belligerent attititude/behavior present <AMERICO Faust - Last Filed: 10/03/22 17:40> Thought process: Circumstantial thought process present <AMERICO Faust - Last Filed: 10/03/22 17:40> Thought content: Suicidality present <AMERICO Faust - Last Filed: 10/03/22 17:40> Insight: Limited insight present (Psych) <AMERICO Faust - Last Filed: 10/03/22 17:40> Judgement: Limited judgement present (Psych) <AMERICO Faust - Last Filed: 10/03/22 17:40> Course Reevaluation(s) Reevaluation #1: Patient evaluated by the care team and patient does not recall circumstances surrounding his arrival. As per the care team patient has declined all recovery resources and does not meet inpatient criteria for admission but is expressing some interest in therapy. At this time the care team is referring him to [facility] and will be discharged home in stable condition. <Melissa Phelps MD - Last Filed: 10/04/22 12:02> Time: 11:59 <Melissa Phelps MD - Last Filed: 10/04/22 12:02> Medications Administered Discontinued Medications Generic Name Dose Route Start Last Admin Trade Name Helen PRN Reason Stop Dose Admin Diphenhydramine HCl 50 mg 10/03/22 18:08 10/03/22 18:21 Diphenhydramine Hcl 50 Mg/Ml Vial IM 10/03/22 18:09 50 mg ONCE ONE Administration Haloperidol Lactate 5 mg 10/03/22 14:40 10/03/22 14:53 Haloperidol Lactate 5 Mg/Ml Vial IM 10/03/22 14:41 5 mg ONCE ONE Administration Haloperidol Lactate 5 mg 10/03/22 18:08 10/03/22 18:22 Haloperidol Lactate 5 Mg/Ml Vial IM 10/03/22 18:09 5 mg STAT STA Administration Lorazepam 2 mg 10/03/22 17:38 10/03/22 17:43 Lorazepam 1 Mg Tablet PO 10/03/22 17:39 2 mg ONCE ONE Administration <AMERICO Faust - Last Filed: 10/03/22 17:40> Medications Administered Discontinued Medications Generic Name Dose Route Start Last Admin Trade Name Helen PRN Reason Stop Dose Admin Diphenhydramine HCl 50 mg 10/03/22 18:08 10/03/22 18:21 Diphenhydramine Hcl 50 Mg/Ml Vial IM 10/03/22 18:09 50 mg ONCE ONE Administration Haloperidol Lactate 5 mg 10/03/22 14:40 10/03/22 14:53 Haloperidol Lactate 5 Mg/Ml Vial IM 10/03/22 14:41 5 mg ONCE ONE Administration Haloperidol Lactate 5 mg 10/03/22 18:08 10/03/22 18:22 Haloperidol Lactate 5 Mg/Ml Vial IM 10/03/22 18:09 5 mg STAT STA Administration Lorazepam 2 mg 10/03/22 17:38 10/03/22 17:43 Lorazepam 1 Mg Tablet PO 10/03/22 17:39 2 mg ONCE ONE Administration <Melissa Phelps MD - Last Filed: 10/04/22 12:02> Medical Decision Making Medical Decision Making [facility] Narrative: Patient is a 41 year old assigned male at with a history of alcohol use presenting to the emergency department today with suicidal ideation and harming himself. Patient's physical exam showed a belligerent individual attempting to punch himself in the face. Patient's blood work is pending. Patient is awaiting [facility] evaluation. Patient was placed in 4 point restraints and given haldol which calmed him down. Patient had restraints removed and is acting appropriately. <AMERICO Faust - Last Filed: 10/03/22 17:40> Differential Diagnosis Differential Diagnoses: The differential diagnosis associated with the presentation includes <AMERICO Faust - Last Filed: 10/03/22 17:40> SI <AMERICO Faust - Last Filed: 10/03/22 17:40> Lab Data [facility] Lab Attestation statement: I reviewed the patient's lab results. <AMERICO Faust - Last Filed: 10/03/22 17:40> Result Diagrams: : 10/03/22 21:32 10/03/22 21:32 <AMERICO Faust - Last Filed: 10/03/22 17:40> Labs: Lab Results 10/03/22 10/03/22 10/03/22 Range/Units 15:17 15:17 16:26 WBC (4.8-10.8) X10*3/uL RBC (4.60-5.80) X10*6/uL Hgb (14.0-18.0) g/dl Hct (42.0-52.0) % MCV (80.0-98.0) fL MCH (27.0-33.0) pg MCHC (31.0-36.0) g/dl RDW (11.0-16.0) % Plt Count (160-400) X10*3/uL MPV (9.4-12.4) fL Immature Gran % (Auto) (0.0-0.4) % Neut % (Auto) (45-73) % Lymph % (Auto) (20-40) % [place] % (Auto) (2-11) % Eos % (Auto) (0-4) % Baso % (Auto) (0-2) % Lymph # (Auto) (1.2-4.9) X10*3/uL [place] # (Auto) (0.1-1.2) X10*3/uL Eos # (Auto) (0.0-0.4) X10*3/uL Baso # (Auto) (0.0-0.2) X10*3/uL Abs Immat Gran (auto) (0.00-0.03) X10*3/uL Absolute Neuts (auto) (2.0-8.3) x10*3/uL Absolute Nucleated RBC (0.0-0.012) X10*3/uL Nucleated RBC % (auto) (0.0-0.2) /100WBC Sodium (135-145) mmol/L Potassium (3.3-5.1) mmol/L Chloride (96-108) mmol/L Carbon Dioxide (22-29) mmol/L Anion Gap (12-20) BUN (9-16) mg/dL Creatinine (0.5-1.4) mg/dL Estim Creat Clear Calc Estimated GFR Random Glucose (60-115) mg/dL Calcium (8.4-10.2) mg/dL Total Bilirubin (0.0-1.0) mg/dL AST (5-37) U/L ALT (0-40) U/L Alkaline Phosphatase (39-117) U/L Total Protein (6.5-8.0) g/dL Albumin (3.5-5.0) g/dL Urine Color Yellow Urine Appearance Clear Urine pH 7.0 (5.0-9.0) Ur Specific [place] <= 1.005 (1.005-1.025) Urine Protein Negative (Neg-Trace) mg/dL Urine Glucose (UA) Negative (Negative) mg/dL Urine Ketones Negative (Negative) mg/dL Urine Blood Negative (Negative) Urine Nitrite Negative (Negative) Ur Leukocyte Esterase Negative (Negative) Salicylates (15-30) mg/dL Urine Opiates Screen Not Detected (Not Detect) Urine Fentanyl Screen Not Detected (Not Detect) Acetaminophen (<30) mcg/mL Ur Barbiturates Screen Not Detected (Not Detect) Ur Phencyclidine Scrn Not Detected (Not Detect) Ur Amphetamines Screen Not Detected (Not Detect) U Benzodiazepines Scrn Not Detected (Not Detect) Urine Cocaine Screen Not Detected (Not Detect) U Marijuana (THC) Screen POSITIVE H (Not Detect) Ethyl Alcohol mg/dL COVID-19 (MUSHTAQ) Negative (Negative) COVID-19 Clin Com See Note 10/03/22 10/03/22 Range/Units 21:32 21:32 WBC 3.7 L (4.8-10.8) X10*3/uL RBC 3.31 L D (4.60-5.80) X10*6/uL Hgb 12.1 L D (14.0-18.0) g/dl Hct 36.3 L D (42.0-52.0) % MCV 109.7 H (80.0-98.0) fL MCH 36.6 H (27.0-33.0) pg MCHC 33.3 (31.0-36.0) g/dl RDW 13.4 (11.0-16.0) % Plt Count 56 L (160-400) X10*3/uL MPV 10.7 (9.4-12.4) fL Immature Gran % (Auto) 0.5 H (0.0-0.4) % Neut % (Auto) 43.9 L (45-73) % Lymph % (Auto) 40.5 H (20-40) % [place] % (Auto) 12.4 H (2-11) % Eos % (Auto) 1.6 (0-4) % Baso % (Auto) 1.1 (0-2) % Lymph # (Auto) 1.5 (1.2-4.9) X10*3/uL [place] # (Auto) 0.5 (0.1-1.2) X10*3/uL Eos # (Auto) 0.1 (0.0-0.4) X10*3/uL Baso # (Auto) 0.0 (0.0-0.2) X10*3/uL Abs Immat Gran (auto) 0.02 (0.00-0.03) X10*3/uL Absolute Neuts (auto) 1.6 L (2.0-8.3) x10*3/uL Absolute Nucleated RBC 0.000 (0.0-0.012) X10*3/uL Nucleated RBC % (auto) 0.0 (0.0-0.2) /100WBC Sodium 144 (135-145) mmol/L Potassium 3.2 L (3.3-5.1) mmol/L Chloride 105 (96-108) mmol/L Carbon Dioxide 31 H (22-29) mmol/L Anion Gap 11 L (12-20) BUN 8 L (9-16) mg/dL Creatinine 0.75 (0.5-1.4) mg/dL Estim Creat Clear Calc 109.9 Estimated GFR > 60 Random Glucose 115 D (60-115) mg/dL Calcium 9.0 D (8.4-10.2) mg/dL Total Bilirubin 0.4 (0.0-1.0) mg/dL AST 109 H (5-37) U/L ALT 42 H (0-40) U/L Alkaline Phosphatase 89 (39-117) U/L Total Protein 7.6 (6.5-8.0) g/dL Albumin 4.4 (3.5-5.0) g/dL Urine Color Urine Appearance Urine pH (5.0-9.0) Ur Specific [place] (1.005-1.025) Urine Protein (Neg-Trace) mg/dL Urine Glucose (UA) (Negative) mg/dL Urine Ketones (Negative) mg/dL Urine Blood (Negative) Urine Nitrite (Negative) Ur Leukocyte Esterase (Negative) Salicylates < 5.0 L (15-30) mg/dL Urine Opiates Screen (Not Detect) Urine Fentanyl Screen (Not Detect) Acetaminophen < 1 (<30) mcg/mL Ur Barbiturates Screen (Not Detect) Ur Phencyclidine Scrn (Not Detect) Ur Amphetamines Screen (Not Detect) U Benzodiazepines Scrn (Not Detect) Urine Cocaine Screen (Not Detect) U Marijuana (THC) Screen (Not Detect) Ethyl Alcohol 318 H* mg/dL COVID-19 (MUSHTAQ) (Negative) COVID-19 Clin Com <AMERICO Faust - Last Filed: 10/03/22 17:40> Lab Results 10/03/22 10/03/22 10/03/22 Range/Units 15:17 15:17 16:26 WBC (4.8-10.8) X10*3/uL RBC (4.60-5.80) X10*6/uL Hgb (14.0-18.0) g/dl Hct (42.0-52.0) % MCV (80.0-98.0) fL MCH (27.0-33.0) pg MCHC (31.0-36.0) g/dl RDW (11.0-16.0) % Plt Count (160-400) X10*3/uL MPV (9.4-12.4) fL Immature Gran % (Auto) (0.0-0.4) % Neut % (Auto) (45-73) % Lymph % (Auto) (20-40) % [place] % (Auto) (2-11) % Eos % (Auto) (0-4) % Baso % (Auto) (0-2) % Lymph # (Auto) (1.2-4.9) X10*3/uL [place] # (Auto) (0.1-1.2) X10*3/uL Eos # (Auto) (0.0-0.4) X10*3/uL Baso # (Auto) (0.0-0.2) X10*3/uL Abs Immat Gran (auto) (0.00-0.03) X10*3/uL Absolute Neuts (auto) (2.0-8.3) x10*3/uL Absolute Nucleated RBC (0.0-0.012) X10*3/uL Nucleated RBC % (auto) (0.0-0.2) /100WBC Sodium (135-145) mmol/L Potassium (3.3-5.1) mmol/L Chloride (96-108) mmol/L Carbon Dioxide (22-29) mmol/L Anion Gap (12-20) BUN (9-16) mg/dL Creatinine (0.5-1.4) mg/dL Estim Creat Clear Calc Estimated GFR Random Glucose (60-115) mg/dL Calcium (8.4-10.2) mg/dL Total Bilirubin (0.0-1.0) mg/dL AST (5-37) U/L ALT (0-40) U/L Alkaline Phosphatase (39-117) U/L Total Protein (6.5-8.0) g/dL Albumin (3.5-5.0) g/dL Urine Color Yellow Urine Appearance Clear Urine pH 7.0 (5.0-9.0) Ur Specific [place] <= 1.005 (1.005-1.025) Urine Protein Negative (Neg-Trace) mg/dL Urine Glucose (UA) Negative (Negative) mg/dL Urine Ketones Negative (Negative) mg/dL Urine Blood Negative (Negative) Urine Nitrite Negative (Negative) Ur Leukocyte Esterase Negative (Negative) Salicylates (15-30) mg/dL Urine Opiates Screen Not Detected (Not Detect) Urine Fentanyl Screen Not Detected (Not Detect) Acetaminophen (<30) mcg/mL Ur Barbiturates Screen Not Detected (Not Detect) Ur Phencyclidine Scrn Not Detected (Not Detect) Ur Amphetamines Screen Not Detected (Not Detect) U Benzodiazepines Scrn Not Detected (Not Detect) Urine Cocaine Screen Not Detected (Not Detect) U Marijuana (THC) Screen POSITIVE H (Not Detect) Ethyl Alcohol mg/dL COVID-19 (MUSHTAQ) Negative (Negative) COVID-19 Clin Com See Note 12/29/22 12/29/22 Range/Units 21:32 21:32 WBC 3.7 L (4.8-10.8) X10*3/uL RBC 3.31 L D (4.60-5.80) X10*6/uL Hgb 12.1 L D (14.0-18.0) g/dl Hct 36.3 L D (42.0-52.0) % MCV 109.7 H (80.0-98.0) fL MCH 36.6 H (27.0-33.0) pg MCHC 33.3 (31.0-36.0) g/dl RDW 13.4 (11.0-16.0) % Plt Count 56 L (160-400) X10*3/uL MPV 10.7 (9.4-12.4) fL Immature Gran % (Auto) 0.5 H (0.0-0.4) % Neut % (Auto) 43.9 L (45-73) % Lymph % (Auto) 40.5 H (20-40) % [place] % (Auto) 12.4 H (2-11) % Eos % (Auto) 1.6 (0-4) % Baso % (Auto) 1.1 (0-2) % Lymph # (Auto) 1.5 (1.2-4.9) X10*3/uL [place] # (Auto) 0.5 (0.1-1.2) X10*3/uL Eos # (Auto) 0.1 (0.0-0.4) X10*3/uL Baso # (Auto) 0.0 (0.0-0.2) X10*3/uL Abs Immat Gran (auto) 0.02 (0.00-0.03) X10*3/uL Absolute Neuts (auto) 1.6 L (2.0-8.3) x10*3/uL Absolute Nucleated RBC 0.000 (0.0-0.012) X10*3/uL Nucleated RBC % (auto) 0.0 (0.0-0.2) /100WBC Sodium 144 (135-145) mmol/L Potassium 3.2 L (3.3-5.1) mmol/L Chloride 105 (96-108) mmol/L Carbon Dioxide 31 H (22-29) mmol/L Anion Gap 11 L (12-20) BUN 8 L (9-16) mg/dL Creatinine 0.75 (0.5-1.4) mg/dL Estim Creat Clear Calc 109.9 Estimated GFR > 60 Random Glucose 115 D (60-115) mg/dL Calcium 9.0 D (8.4-10.2) mg/dL Total Bilirubin 0.4 (0.0-1.0) mg/dL AST 109 H (5-37) U/L ALT 42 H (0-40) U/L Alkaline Phosphatase 89 (39-117) U/L Total Protein 7.6 (6.5-8.0) g/dL Albumin 4.4 (3.5-5.0) g/dL Urine Color Urine Appearance Urine pH (5.0-9.0) Ur Specific [place] (1.005-1.025) Urine Protein (Neg-Trace) mg/dL Urine Glucose (UA) (Negative) mg/dL Urine Ketones (Negative) mg/dL Urine Blood (Negative) Urine Nitrite (Negative) Ur Leukocyte Esterase (Negative) Salicylates < 5.0 L (15-30) mg/dL Urine Opiates Screen (Not Detect) Urine Fentanyl Screen (Not Detect) Acetaminophen < 1 (<30) mcg/mL Ur Barbiturates Screen (Not Detect) Ur Phencyclidine Scrn (Not Detect) Ur Amphetamines Screen (Not Detect) U Benzodiazepines Scrn (Not Detect) Urine Cocaine Screen (Not Detect) U Marijuana (THC) Screen (Not Detect) Ethyl Alcohol 318 H* mg/dL COVID-19 (MUSHTAQ) (Negative) COVID-19 Clin Com <Melissa Phelps MD - Last Filed: 10/04/22 12:02> Discharge Plan Discharge Clinical Impression: Aggression, Alcohol use disorder <AMERICO Faust - Last Filed: 10/03/22 17:40> Patient Disposition: Home, Self-Care <AMERICO Faust - Last Filed: 10/03/22 17:40> Instructions: Abuse of Alcohol (ED), Alcohol Intoxication (ED), Alcohol Dependence (ED) <AMERICO Faust - Last Filed: 10/03/22 17:40> Additional Instructions: Please follow-up with the resources that you have been provided with to assist you in alcohol cessation. Return to the ER for any worsening symptoms. <AMERICO Faust - Last Filed: 10/03/22 17:40> Prescriptions: No Action albuterol sulfate 90 mcg/actuation HFA aerosol inhaler 2 puff inhalation Q6H PRN (Reason: shortness of breath or wheezing) Qty: 8.5 0RF <AMERICO Faust - Last Filed: 10/03/22 17:40> Interventions: [place]-Suicide Risk Severity Scale Last Done: 10/04/22 11:10 <AMERICO Faust - Last Filed: 10/03/22 17:40>
[2022-10-03] MEDS: Haloperidol Lactate 5 MG/ML VIAL IM ×2 (14:53→18:22)
[2022-10-03 15:26] LABS: Appearance Urine Clear; Color Urine Yellow; Glucose Urine UA Negative (Negative); Leukocyte Esterase Urine Negative (Negative); Nitrite Urine Negative (Negative); Specific Gravity - Urine <= 1.005 (1.005-1.025); Urine Blood Negative (Negative); Urine Ketones Negative (Negative); Urine Protein Negative (Neg-Trace)
[2022-10-03 15:38] LABS: Amphetamine Screen Urine Not Detected (Not Detect); Barbiturates, Urine Not Detected (Not Detect); Benzodiazepines Screen Urine Not Detected (Not Detect); Cannabinoid Screen Urine POSITIVE (Not Detect); Cocaine Screen Urine Not Detected (Not Detect); Fentanyl, urine Not Detected (Not Detect); Opiate Screen Urine Not Detected (Not Detect); Phencyclidine Screen Urine Not Detected (Not Detect)
[2022-10-03 16:48] LABS: COVID-19 Test Negative (Negative)
[2022-10-03] MEDS: LORazepam 1 MG TABLET 2 MG PO (17:43)
[2022-10-03] MEDS: diphenhydrAMINE HCL 50 MG/ML VIAL IM (18:21)
--- NOTE | 2022-10-03 20:18 | MHC.EDTECH ---
t/w attempted to draw labs on pt while pt's wrists in restraints. pt amenable to this plan because pt constantly hitting self when not in restraints. pt not combative toward others, only self. t/w was not successful in lab draw. will attempt later when pt is in behavioral control and awake.
[2022-10-03 21:37] LABS: MANUAL DIFF FLAG NO
[2022-10-03 21:39] LABS: Basophils Percent Auto 1.1 % (0-2); Eosinophils Absolute Auto 0.1 X10*3/uL (0.0-0.4); Eosinophils Percent Auto 1.6 % (0-4); Hematocrit 36.3 % (42.0-52.0); Hemoglobin 12.1 g/dl (14.0-18.0); Imm Gran Abs Auto 0.02 X10*3/uL (0.00-0.03); Imm Gran Pct Auto 0.5 % (0.0-0.4); Lymphocytes Absolute Auto 1.5 X10*3/uL (1.2-4.9); Lymphocytes Percent Auto 40.5 % (20-40); Mean Corpuscular HGB Conc 33.3 g/dl (31.0-36.0); Mean Corpuscular Hemoglobin 36.6 pg (27.0-33.0); Mean Corpuscular Volume 109.7 fL (80.0-98.0); Mean Platelet Volume 10.7 fL (9.4-12.4); Monocytes Absolute Auto 0.5 X10*3/uL (0.1-1.2); Monocytes Percent Auto 12.4 % (2-11); Neutrophils Absolute Auto 1.6 x10*3/uL (2.0-8.3); Neutrophils Percent Auto 43.9 % (45-73); Red Blood Count 3.31 X10*6/uL (4.60-5.80); Red Cell Distribution Width 13.4 % (11.0-16.0); White Blood Count 3.7 X10*3/uL (4.8-10.8)
[2022-10-03 21:45] LABS: Platelet Count 56 X10*3/uL (160-400)
[2022-10-03 22:04] LABS: Acetaminophen LAB < 1 mcg/mL (<30); Alanine Aminotransferase 42 U/L (0-40); Albumin Level 4.4 g/dL (3.5-5.0); Alkaline Phosphatase 89 U/L (39-117); Anion Gap 11 (12-20); Aspartate Amino Transferase 109 U/L (5-37); Bilirubin Total 0.4 mg/dL (0.0-1.0); Blood Urea Nitrogen 8 mg/dL (9-16); Carbon Dioxide 31 mmol/L (22-29); Chloride 105 mmol/L (96-108); Creatinine Clr Calc Pharmacy 109.9; Estimated Glomerular Filt Rate > 60; Glucose Random 115 mg/dL (60-115); Potassium 3.2 mmol/L (3.3-5.1); Salicylate < 5.0 mg/dL (15-30); Sodium 144 mmol/L (135-145); Total Protein 7.6 g/dL (6.5-8.0)
[2022-10-04 01:13] LABS: Ethanol 318 mg/dL
--- NOTE | 2022-10-04 04:38 | PC.NURSE ---
Patient slept through the night, no distress observed/reported, respiration +/=/non labored bilaterally, patient is waiting to be seen by care team in the morning, med rec completed/patient is not on any maintenance medication, behavior at the time arrival self abusive requiring both mechanical and chemical restraint at 1815, no behavior concerns at this time, VSS. will continue to monitor.
[2022-10-04 06:13] VITALS: BP 124/85; PULSE 85; RESP 17; TEMP 36.6; O2SAT 97
--- NOTE | 2022-10-04 07:45 | PC.NURSE ---
Medication requested to be verified by ED attending.
--- NOTE | 2022-10-04 11:36 | MHC.CARE ---
CC Referral sent
== END 2022-10-04 12:50 | disposition home or self-care (01) ==
PROVIDERS: Physician Assistant Medical; Emergency Provider Student in an Organized Health Care Education/Training Program
DX: R45.851 Suicidal ideations (principal); F91.8 Other conduct disorders; F10.10 Alcohol abuse, uncomplicated; Y90.8 Blood alcohol level of 240 mg/100 ml or more; F17.210 Nicotine dependence, cigarettes, uncomplicated; F32.A Depression, unspecified; F12.90 Cannabis use, unspecified, uncomplicated; Z79.899 Other long term (current) drug therapy; Z20.822 Contact with and (suspected) exposure to COVID-19
CPT/HCPCS: 36415; 80053; 80143; 80179; 80307; 81003; 82077; 85025; 87635; 96372; 99285; J1200

== ENCOUNTER 2022-12-13 20:15 | Emergency (ER) | payer OTHER, MEDICAID, SELFPAY ==
[2022-12-13 20:21] VITALS: BP 134/72; PULSE 66; RESP 16; TEMP 36.9; O2SAT 98; BMI 25.1
--- NOTE | 2022-12-13 21:17 | ED.PSYCH ---
HPI - Psych General Chief Complaint: Psychiatric Symptoms Stated Complaint: crissis/etoh Time Seen by Provider: 12/13/22 21:09 Source: EMS Mode of arrival: EMS Limitations: other (Intoxicated, combative) History of Present Illness HPI Narrative: Patient comes emergency room via EMS from his mother's house. EMS reports that the patient was very intoxicated at his mother's house, made suicidal statements saying that he wants to . EMS was called and brought to the emergency room. Here in the emergency room, patient is agitated, uncooperative, security at bedside holding him down Related Data Previous Rx's Medication Instructions Recorded albuterol sulfate 90 mcg/actuation 2 puff inhalation Q6H PRN 08/15/22 aerosol inhaler shortness of breath or wheezing #8.5 grams Allergies Allergy/AdvReac Type Severity Reaction Status Date / Time No Known Allergies Allergy Verified 10/05/20 15:39 Review of Systems Review of Systems: Yes Other (uncooperative, intoxicated) PMFSH Past Medical History Medical History Depression ETOH abuse GERD (gastroesophageal reflux disease) Neuropathy Social History Social History Household Members: Other Household Members Other:: mother Housing: Apartment Do you presently have visiting nurse or other home services: No Alcohol intake: current Alcohol intake frequency: 3 or more drinks per day Alcohol type: hard liquor Patient Tobacco Use Status: Current everyday Tobacco user Tobacco use type: Cigarette Cigarette Packs Per Day: 0.5 Cigarettes Per Day: 10.0 Years Smoked: 25 Smoked in Last 30 Days: Yes Second Hand Smoke Exposure: Yes Use of substances other than those prescribed or required for medical reasons: Yes Substance Use Type: Marijuana Substance Use Frequency: Daily Advance Directives: No Advance Directives Information Provided: Yes service: No Current occupational status: unemployed Sexual orientation: Straight/Heterosexual Physical Exam Vital Signs: Vital Signs: Last Vital Signs Temp 98.4 F 12/13/22 20:21 Pulse 110 H 12/13/22 21:24 Resp 18 12/13/22 21:24 BP 144/90 H 12/13/22 21:24 Pulse Ox 98 12/13/22 20:21 O2 Del Method 12/13/22 20:21 BMI result Body Mass Index 25.1 Const: Other: Appearance: Alert. Oriented X3. Aggressive, combative Eyes: Pupils equal, round and reactive to light. ENT: Pharynx normal. Neck: Normal inspection. Neck supple. No lymph nodes noted. No crepitus CVS: Normal heart rate and rhythm. Pulses normal. Normal S1 and S2 Respiratory: No respiratory distress. Breath sounds normal. No Wheezing. No rales Abdomen: Soft and nontender. No rigidity. No distention. Skin: Skin warm and dry. Normal skin color. Normal skin turgor. Extremities: No lower extremity edema. No Lacerations. No Rash Neuro: Oriented X 3. Moving all extremities. No slurred speech. CN 2 through 12 grossly intact Psych: Aggressive, combative Course Course Course Narrative: -security is at bedside holding down the patient. -patient received IM 5mg Haldol, Ativan 2 mg, Benadryl 50 mg -patient is on a Section 12 that was started by PD -physician observation at 21:20 Medications Administered Discontinued Medications Generic Name Dose Route Start Last Admin Trade Name Luisq PRN Reason Stop Dose Admin Diphenhydramine HCl 50 mg 12/13/22 21:08 12/13/22 21:22 Diphenhydramine Hcl 50 Mg/Ml Vial IM 12/13/22 21:09 50 mg ONCE ONE Administration Haloperidol Lactate 5 mg 12/13/22 21:08 12/13/22 21:21 Haloperidol Lactate 5 Mg/Ml Vial IM 12/13/22 21:09 5 mg STAT STA Administration Lorazepam 2 mg 12/13/22 21:08 12/13/22 21:21 Lorazepam 2 Mg/Ml Vial IM 12/13/22 21:09 2 mg STAT STA Administration Medical Decision Making Lab Data 12/13/22 21:46 12/13/22 21:46 Labs: Lab Results 12/13/22 Range/Units 21:46 WBC 4.1 L (4.8-10.8) X10*3/uL RBC 3.48 L (4.60-5.80) X10*6/uL Hgb 11.4 L (14.0-18.0) g/dl Hct 34.2 L (42.0-52.0) % MCV 98.3 H (80.0-98.0) fL MCH 32.8 (27.0-33.0) pg MCHC 33.3 (31.0-36.0) g/dl RDW 13.7 (11.0-16.0) % Plt Count 64 L (160-400) X10*3/uL MPV 8.9 L (9.4-12.4) fL Immature Gran % (Auto) 0.2 (0.0-0.4) % Neut % (Auto) 43.2 L (45-73) % Lymph % (Auto) 44.3 H (20-40) % [place] % (Auto) 10.6 (2-11) % Eos % (Auto) 0.7 (0-4) % Baso % (Auto) 1.0 (0-2) % Lymph # (Auto) 1.8 (1.2-4.9) X10*3/uL [place] # (Auto) 0.4 (0.1-1.2) X10*3/uL Eos # (Auto) 0.0 (0.0-0.4) X10*3/uL Baso # (Auto) 0.0 (0.0-0.2) X10*3/uL Abs Immat Gran (auto) 0.01 (0.00-0.03) X10*3/uL Absolute Neuts (auto) 1.8 L (2.0-8.3) x10*3/uL Absolute Nucleated RBC 0.000 (0.0-0.012) X10*3/uL Nucleated RBC % (auto) 0.0 (0.0-0.2) /100WBC Discharge Plan Discharge Clinical Impression: Alcohol intoxication, Suicidal ideation Patient Disposition: Still a Patient Prescriptions: No Action albuterol sulfate 90 mcg/actuation HFA aerosol inhaler 2 puff inhalation Q6H PRN (Reason: shortness of breath or wheezing) Qty: 8.5 0RF
[2022-12-13] MEDS: LORazepam 2 MG/ML VIAL IM (21:21)
[2022-12-13] MEDS: Haloperidol Lactate 5 MG/ML VIAL IM (21:21)
[2022-12-13] MEDS: diphenhydrAMINE HCL 50 MG/ML VIAL IM (21:22)
[2022-12-13 21:24] VITALS: BP 144/90; PULSE 110; RESP 18
[2022-12-13 21:36] VITALS: BP 144/90; PULSE 110; RESP 18; O2SAT 98
[2022-12-13 21:49] LABS: MANUAL DIFF FLAG NO
[2022-12-13 21:51] VITALS: BP 111/70; PULSE 84; RESP 14; O2SAT 96
[2022-12-13 21:51] LABS: Eosinophils Percent Auto 0.7 % (0-4); Hematocrit 34.2 % (42.0-52.0); Hemoglobin 11.4 g/dl (14.0-18.0); Imm Gran Abs Auto 0.01 X10*3/uL (0.00-0.03); Imm Gran Pct Auto 0.2 % (0.0-0.4); Lymphocytes Absolute Auto 1.8 X10*3/uL (1.2-4.9); Lymphocytes Percent Auto 44.3 % (20-40); Mean Corpuscular HGB Conc 33.3 g/dl (31.0-36.0); Mean Corpuscular Hemoglobin 32.8 pg (27.0-33.0); Mean Corpuscular Volume 98.3 fL (80.0-98.0); Mean Platelet Volume 8.9 fL (9.4-12.4); Monocytes Absolute Auto 0.4 X10*3/uL (0.1-1.2); Monocytes Percent Auto 10.6 % (2-11); Neutrophils Absolute Auto 1.8 x10*3/uL (2.0-8.3); Neutrophils Percent Auto 43.2 % (45-73); Red Blood Count 3.48 X10*6/uL (4.60-5.80); Red Cell Distribution Width 13.7 % (11.0-16.0); White Blood Count 4.1 X10*3/uL (4.8-10.8)
[2022-12-13 21:53] LABS: Platelet Count 64 X10*3/uL (160-400)
[2022-12-13 22:06] VITALS: BP 111/68; PULSE 85; RESP 20; TEMP 37.1; O2SAT 95
[2022-12-13 22:06] LABS: COVID-19 Test Negative (Negative); Ethanol 365 mg/dL; IDNOW Serial# 6674DD1D
[2022-12-13 22:09] LABS: Alanine Aminotransferase 30 U/L (0-40); Albumin Level 4.4 g/dL (3.5-5.0); Alkaline Phosphatase 79 U/L (39-117); Anion Gap 18 (12-20); Aspartate Amino Transferase 65 U/L (5-37); Bilirubin Total 0.5 mg/dL (0.0-1.0); Blood Urea Nitrogen 11 mg/dL (9-16); Calcium 8.5 mg/dL (8.4-10.2); Carbon Dioxide 25 mmol/L (22-29); Chloride 102 mmol/L (96-108); Estimated Glomerular Filt Rate > 60; Glucose Random 81 mg/dL (60-115); Potassium 3.4 mmol/L (3.3-5.1); Sodium 142 mmol/L (135-145); Total Protein 7.5 g/dL (6.5-8.0)
[2022-12-13 22:13] LABS: Troponin-I High Sensitivity 4.1 ng/L (<3.5-35.0)
--- NOTE | 2022-12-13 22:19 | PC.NURSE ---
Patient is restless, uncooperative, requesting to leave, unable to redirect patient at this time. Security called in, patient changed in POD attire. Patient continues to present with restlessness, agitation, and attempts to leave. Dr. Johnson informed. Patient medicated with Haldol 5 mg IM, Lorazepam 2 mg IM, and Benadryl 50 mg IM. Medication restrain assessment initiated with baseline vital signs obtained. Patient became calm and sleepy at 30 min re assessment. Labs drawn/COVID swab completed and sent to the lab for precessing.
--- NOTE | 2022-12-13 23:03 | MHC.CARE ---
Tryone has a BAL of 365 @ 21:46 ,he won't be interviewable until 8am. He also needs a UTOX. CARE can see him in the morning after 8am providing UTOX is completed.
[2022-12-13 23:25] VITALS: BP 112/76; PULSE 92; RESP 20; O2SAT 92
[2022-12-14 00:36] VITALS: BP 116/69; PULSE 82; RESP 17; O2SAT 95
[2022-12-14 02:53] VITALS: BP 119/80; PULSE 67; RESP 14; O2SAT 97
[2022-12-14 06:08] VITALS: BP 123/81; PULSE 78; RESP 13; O2SAT 99
[2022-12-14] MEDS: LORazepam 1 MG TABLET 2 MG PO (09:25)
--- NOTE | 2022-12-14 10:44 | PC.NURSE ---
care team at bedside
[2022-12-14 12:14] LABS: Amphetamine Screen Urine Not Detected (Not Detect); Barbiturates, Urine Not Detected (Not Detect); Benzodiazepines Screen Urine Not Detected (Not Detect); Cannabinoid Screen Urine POSITIVE (Not Detect); Cocaine Screen Urine Not Detected (Not Detect); Fentanyl, urine Not Detected (Not Detect); Opiate Screen Urine Not Detected (Not Detect); Phencyclidine Screen Urine Not Detected (Not Detect)
--- NOTE | 2022-12-14 12:38 | MHC.RECOVRN ---
This assembly instructions writer met with patient. Patient in bed, laying onside, minimal eye contact, barely audible verbal response. Patient reports not interested in detox at this time, agreeable to review recovery supports. T/W reviewed harm reduction strategies, detox bedsearch process, Faby [facility]REEM[facility], [facility], recovery resources. Patient verbalized understanding, no further questions at this time. Resources left at bedside.
--- NOTE | 2022-12-14 14:10 | MHC.CARE ---
Patient evaluated by the CARE Team, he does not require inpatient psychiatric admission at this time, written assessment to follow. ED provider, AMERICO Michelle updated.
--- NOTE | 2022-12-14 14:12 | PC.NURSE ---
contacted care team for status update
[2022-12-14 14:30] VITALS: BP 118/67; PULSE 105; RESP 18; TEMP 37.3; O2SAT 99
== END 2022-12-14 15:44 | disposition home or self-care (01) ==
PROVIDERS: Emergency Provider Emergency Medicine
DX: R45.851 Suicidal ideations (principal); F10.229 Alcohol dependence with intoxication, unspecified; F32.A Depression, unspecified
CPT/HCPCS: 36415; 80053; 80307; 82077; 84484; 85025; 87635; 96372; 99285; J1200; J2060; S9485

== ENCOUNTER 2022-12-31 09:15 | Emergency (ER) | payer MEDICAID, SELFPAY ==
[2022-12-31 09:22] VITALS: BP 128/70; BP 138/78; PULSE 84; PULSE 87; RESP 18; TEMP 37.1; O2SAT 93; BMI 19.9
--- NOTE | 2022-12-31 09:55 | ED_ITS ---
HPI - General Adult General Chief complaint: Nausea/Vomiting/Diarrhea Stated complaint: NV Time Seen by Provider: 12/31/22 09:36 Source: patient and EMS Mode of arrival: EMS Limitations: no limitations History of Present Illness HPI narrative: 42-year-old male with past medical history of depression and alcohol abuse, last alcohol drink was 2 days ago patient is unable to drink because of vomiting, patient with history of DTs. Patient is anxious with persistent vomiting shaky with tongue fasciculation and tremors, no visual hallucination, no seizure. Overall patient do not feel good. Patient had a previous hospitalization for severe alcohol withdrawal symptoms. Related Data Home Medications Medication Instructions Recorded Confirmed naltrexone 50 mg tablet 50 mg PO DAILY 12/31/22 12/31/22 pyridoxine (vitamin B6) 50 mg 50 mg PO DAILY 12/31/22 12/31/22 tablet thiamine HCl (vitamin B1) 100 mg 100 mg PO DAILY 12/31/22 12/31/22 tablet Allergies Allergy/AdvReac Type Severity Reaction Status Date / Time No Known Allergies Allergy Verified 10/05/20 15:39 Review of Systems Review of Systems: All other systems are reviewed and are negative Constitutional: Reports as per HPI and Reports no additional constitutional complaints Eyes: Reports as per HPI and Reports no additional eye complaints Reports system reviewed and no additional complaints, except as documented Cardiovascular: Reports as per HPI and Reports no additional cardiovascular complaints Respiratory: Reports as per HPI and Reports no additional respiratory complaints Gastrointestinal: Reports as per HPI and Reports no additional gastrointestinal complaints Genitourinary: Reports no additional female genitourinary complaints Musculoskeletal: Reports no additional musculoskeletal complaints Skin/Breast: Reports system reviewed and no additional complaints, except as docu Psychiatric: Reports no additional psychiatric complaints Endocrine: Reports no additional endocrine complaints Hematologic/Lymphatic: Reports no additional hematologic/lymphatic complaints Allergic/Immunologic: Reports no additional allergic/immunologic complaints Reports system reviewed and no additional complaints, except as documented and Reports Abnormal speech present FOR[facility], [facility] Past Medical History Medical History Depression ETOH abuse GERD (gastroesophageal reflux disease) Neuropathy Social History Social History Household Members: Other Household Members Other:: mother Housing: Apartment Do you presently have visiting nurse or other home services: No Alcohol intake: current Alcohol intake frequency: 3 or more drinks per day Alcohol type: hard liquor Patient Tobacco Use Status: Current everyday Tobacco user Tobacco use type: Cigarette Cigarette Packs Per Day: 0.5 Cigarettes Per Day: 10.0 Years Smoked: 25 Smoked in Last 30 Days: Yes Second Hand Smoke Exposure: Yes Use of substances other than those prescribed or required for medical reasons: Yes Substance Use Type: Marijuana Advance Directives: No Advance Directives Information Provided: No service: No Current occupational status: unemployed Sexual orientation: Straight/Heterosexual Physical Exam ED Vital Signs: Vital Signs - 24 hr 12/31/22 09:22 12/31/22 11:47 12/31/22 13:44 Temperature 98.8 F Pulse Rate 87 70 96 Respiratory Rate 18 19 20 Blood Pressure 138/78 137/78 129/81 Pulse Oximetry 93 97 99 Oxygen Delivery Method Room Air Room Air Room Air BMI result Body Mass Index 19.9 Vital signs have been reviewed as appeared to be correct. Blood pressure normal. Heart rate normal. Respiration rate normal. Temperature normal. Oxygen saturation normal. Appearance: Alert. Anxious, Oriented X3. No acute distress. Head: Normal external exam. Normocephalic. Atraumatic. No Blake signs noted. No raccoon eyes noted Eyes: PERRLA. EOMI. Conjunctiva and sclera normal. Eyelids normal. ENT: TM's Normal. Pharynx normal. Uvula midline. Moist mucous membranes. No trismus noted. No drooling noted. No muffled voice noted. Neck: Normal inspection. Neck supple. FROM. No adenopathy. Thyroid Normal. No meningeal signs. No neck mass noted. CVS: Normal heart rate and rhythm. Heart sound normal. No murmurs noted. Pulses normal throughout. Respiratory: No respiratory distress. Painless inspiration. Breath sounds normal . No wheezes/rales/rhonchi noted. Chest nontender. No accessory muscle usage noted or decreased air movement noted. Abdomen: Soft and nontender. Bowel sounds normal in all 4 quadrants. No distention noted. No organomegaly noted. No visible injury noted. Back: No CVA tenderness. Full range of motion noted. Skin: Skin warm and dry. Normal skin color. Normal skin turgor. No rashes/lesions/lacerations noted. Extremities: No lower extremity edema. Extremities exhibit normal range of motion. Extremities nontender. Neuro: Oriented X 3. Cranial nerve exam: II-XII are grossly intact No motor deficit. No sensory deficit. Reflexes normal. Course Course Course Narrative: A 42-year-old male with daily alcohol abuse who is on able to drink for the past few days due to intractable vomiting patient is showing signs of withdrawal, history of DTs. CIWA score is 2, also labs show hypokalemia and hypomagnesemia repleted in the ED. patient is able to tolerate p.o. intake in the ED. Medications Administered Discontinued Medications Generic Name Dose Route Start Last Admin Trade Name Luisq PRN Reason Stop Dose Admin Al Hydroxide/Mg Hydroxide 30 ml 12/31/22 09:54 12/31/22 10:10 Magnesium Hydrox/Alum Hydrox 30 Ml Oral.Susp PO 12/31/22 09:55 30 ml ONCE ONE Administration Famotidine 20 mg 12/31/22 09:54 12/31/22 10:10 Famotidine/Pf 20 Mg/2 Ml Vial IVPUSH 12/31/22 09:55 20 mg ONCE ONE Administration Sodium Chloride 1,000 mls @ 999 mls/hr 12/31/22 09:52 12/31/22 11:21 Ns IV 12/31/22 10:52 Infused .Q1H1M ONE Infusion Lorazepam 2 mg 12/31/22 09:52 12/31/22 10:13 Lorazepam 2 Mg/Ml Vial IVPUSH 12/31/22 09:53 2 mg ONCE ONE Administration Ondansetron HCl 4 mg 12/31/22 09:54 12/31/22 10:10 Ondansetron Hcl 4 Mg/2 Ml Vial IVPUSH 12/31/22 09:55 4 mg ONCE ONE Administration Phenobarbital Sodium 252 mg 12/31/22 10:30 12/31/22 11:41 Phenobarbital Sodium 130 Mg/Ml Im Once IM 12/31/22 10:31 Not Given ONCE ONE Protocol Phenobarbital Sodium 252 mg 12/31/22 11:30 12/31/22 11:49 Phenobarbital Sodium 130 Mg/Ml Im Once IM 12/31/22 11:31 252 mg ONCE ONE Administration Protocol Medical Decision Making Differential Diagnosis Differential Diagnoses: The differential diagnosis associated with the presentation includes (Alcohol withdrawal, alcoholic gastritis, dehydration, DTs, electrolyte disturbance, anemia.) Admission/Observation Consideration of admission/observation: Escalation of care including admission/observation considered Lab Data MDM Lab Attestation statement: I reviewed the patient's lab results. 12/31/22 10:06 12/31/22 10:06 Labs: Lab Results 12/31/22 12/31/22 12/31/22 Range/Units 10:06 10:06 11:48 WBC 6.2 (4.8-10.8) X10*3/uL RBC 3.44 L (4.60-5.80) X10*6/uL Hgb 11.4 L (14.0-18.0) g/dl Hct 33.4 L (42.0-52.0) % MCV 97.1 (80.0-98.0) fL MCH 33.1 H (27.0-33.0) pg MCHC 34.1 (31.0-36.0) g/dl RDW 14.6 (11.0-16.0) % Plt Count 56 L (160-400) X10*3/uL MPV 10.5 (9.4-12.4) fL Immature Gran % (Auto) 0.3 (0.0-0.4) % Neut % (Auto) 79.5 H (45-73) % Lymph % (Auto) 9.2 L (20-40) % [place] % (Auto) 10.7 (2-11) % Eos % (Auto) 0.0 (0-4) % Baso % (Auto) 0.3 (0-2) % Lymph # (Auto) 0.6 L (1.2-4.9) X10*3/uL [place] # (Auto) 0.7 (0.1-1.2) X10*3/uL Eos # (Auto) 0.0 (0.0-0.4) X10*3/uL Baso # (Auto) 0.0 (0.0-0.2) X10*3/uL Abs Immat Gran (auto) 0.02 (0.00-0.03) X10*3/uL Absolute Neuts (auto) 4.9 (2.0-8.3) x10*3/uL Absolute Nucleated RBC 0.000 (0.0-0.012) X10*3/uL Nucleated RBC % (auto) 0.0 (0.0-0.2) /100WBC Sodium 137 (135-145) mmol/L Potassium 3.2 L (3.3-5.1) mmol/L Chloride 94 L (96-108) mmol/L Carbon Dioxide 28 (22-29) mmol/L Anion Gap 18 (12-20) BUN 17 H (9-16) mg/dL Creatinine 0.78 (0.5-1.4) mg/dL Estim Creat Clear Calc 107.5 Estimated GFR > 60 Random Glucose 96 (60-115) mg/dL Calcium 9.1 D (8.4-10.2) mg/dL Magnesium 1.5 L (1.6-2.6) mg/dL Total Bilirubin 1.4 H (0.0-1.0) mg/dL AST 70 H (5-37) U/L ALT 37 (0-40) U/L Alkaline Phosphatase 82 (39-117) U/L Total Protein 7.4 (6.5-8.0) g/dL Albumin 4.4 (3.5-5.0) g/dL Urine Color Urine Appearance Urine pH (5.0-9.0) Ur Specific [place] (1.005-1.025) Urine Protein (Neg-Trace) mg/dL Urine Glucose (UA) (Negative) mg/dL Urine Ketones (Negative) mg/dL Urine Blood (Negative) Urine Nitrite (Negative) Ur Leukocyte Esterase (Negative) Urine RBC (0-2) /HPF Urine WBC (0-5) /HPF Ur Squamous Epith Cells (0-2) /HPF Urine Bacteria (None Seen) Hyaline Casts (0-2) /LPF Urine Opiates Screen Not Detected (Not Detect) Urine Fentanyl Screen Not Detected (Not Detect) Ur Barbiturates Screen Not Detected (Not Detect) Ur Phencyclidine Scrn Not Detected (Not Detect) Ur Amphetamines Screen Not Detected (Not Detect) U Benzodiazepines Scrn Not Detected (Not Detect) Urine Cocaine Screen Not Detected (Not Detect) U Marijuana (THC) Screen POSITIVE H (Not Detect) Ethyl Alcohol < 10 mg/dL 12/31/22 Range/Units 11:48 WBC (4.8-10.8) X10*3/uL RBC (4.60-5.80) X10*6/uL Hgb (14.0-18.0) g/dl Hct (42.0-52.0) % MCV (80.0-98.0) fL MCH (27.0-33.0) pg MCHC (31.0-36.0) g/dl RDW (11.0-16.0) % Plt Count (160-400) X10*3/uL MPV (9.4-12.4) fL Immature Gran % (Auto) (0.0-0.4) % Neut % (Auto) (45-73) % Lymph % (Auto) (20-40) % [place] % (Auto) (2-11) % Eos % (Auto) (0-4) % Baso % (Auto) (0-2) % Lymph # (Auto) (1.2-4.9) X10*3/uL [place] # (Auto) (0.1-1.2) X10*3/uL Eos # (Auto) (0.0-0.4) X10*3/uL Baso # (Auto) (0.0-0.2) X10*3/uL Abs Immat Gran (auto) (0.00-0.03) X10*3/uL Absolute Neuts (auto) (2.0-8.3) x10*3/uL Absolute Nucleated RBC (0.0-0.012) X10*3/uL Nucleated RBC % (auto) (0.0-0.2) /100WBC Sodium (135-145) mmol/L Potassium (3.3-5.1) mmol/L Chloride (96-108) mmol/L Carbon Dioxide (22-29) mmol/L Anion Gap (12-20) BUN (9-16) mg/dL Creatinine (0.5-1.4) mg/dL Estim Creat Clear Calc Estimated GFR Random Glucose (60-115) mg/dL Calcium (8.4-10.2) mg/dL Magnesium (1.6-2.6) mg/dL Total Bilirubin (0.0-1.0) mg/dL AST (5-37) U/L ALT (0-40) U/L Alkaline Phosphatase (39-117) U/L Total Protein (6.5-8.0) g/dL Albumin (3.5-5.0) g/dL Urine Color Dark Yellow Urine Appearance Clear Urine pH >= 9.0 (5.0-9.0) Ur Specific [place] >= 1.030 H (1.005-1.025) Urine Protein 100 (2+) H (Neg-Trace) mg/dL Urine Glucose (UA) 250 H (Negative) mg/dL Urine Ketones 80 (Negative) mg/dL Urine Blood Negative (Negative) Urine Nitrite Negative (Negative) Ur Leukocyte Esterase Negative (Negative) Urine RBC 0-2 (0-2) /HPF Urine WBC 0-5 (0-5) /HPF Ur Squamous Epith Cells 0-2 (0-2) /HPF Urine Bacteria None Seen (None Seen) Hyaline Casts 0-2 (0-2) /LPF Urine Opiates Screen (Not Detect) Urine Fentanyl Screen (Not Detect) Ur Barbiturates Screen (Not Detect) Ur Phencyclidine Scrn (Not Detect) Ur Amphetamines Screen (Not Detect) U Benzodiazepines Scrn (Not Detect) Urine Cocaine Screen (Not Detect) U Marijuana (THC) Screen (Not Detect) Ethyl Alcohol mg/dL ABG Data Attestation ABG: I personally reviewed and interpreted this ABG as follows: Chronic Conditions Patient?s care impacted by: Other (alcohol abuse) Discharge Plan Discharge Clinical Impression: Acute hypokalemia, Hypomagnesemia, Alcoholic gastritis, Vomiting Patient Disposition: Home, Self-Care Instructions: Gastritis (ED) Prescriptions: No Action naltrexone 50 mg tablet 50 mg PO DAILY thiamine HCl (vitamin B1) 100 mg tablet 100 mg PO DAILY pyridoxine (vitamin B6) 50 mg tablet 50 mg PO DAILY Referrals: Emily Perez PA [Primary Care Provider] -
[2022-12-31 10:09] LABS: MANUAL DIFF FLAG NO
[2022-12-31] MEDS: ondansetron HCL 4 MG/2 ML VIAL IVPUSH (10:10)
[2022-12-31] MEDS: 0.9 % Sodium Chloride 1,000 ML 999 ML IV (10:10)
[2022-12-31] MEDS: Magnesium Hydrox/Alum Hydrox 30 ML ORAL.SUSP PO (10:10)
[2022-12-31] MEDS: Famotidine/PF 20 MG/2 ML VIAL IVPUSH (10:10)
[2022-12-31] MEDS: LORazepam 2 MG/ML VIAL IVPUSH (10:13)
[2022-12-31 10:18] LABS: Basophils Percent Auto 0.3 % (0-2); Hematocrit 33.4 % (42.0-52.0); Hemoglobin 11.4 g/dl (14.0-18.0); Imm Gran Abs Auto 0.02 X10*3/uL (0.00-0.03); Imm Gran Pct Auto 0.3 % (0.0-0.4); Lymphocytes Absolute Auto 0.6 X10*3/uL (1.2-4.9); Lymphocytes Percent Auto 9.2 % (20-40); Mean Corpuscular HGB Conc 34.1 g/dl (31.0-36.0); Mean Corpuscular Hemoglobin 33.1 pg (27.0-33.0); Mean Corpuscular Volume 97.1 fL (80.0-98.0); Mean Platelet Volume 10.5 fL (9.4-12.4); Monocytes Absolute Auto 0.7 X10*3/uL (0.1-1.2); Monocytes Percent Auto 10.7 % (2-11); Neutrophils Absolute Auto 4.9 x10*3/uL (2.0-8.3); Neutrophils Percent Auto 79.5 % (45-73); Platelet Count 56 X10*3/uL (160-400); Red Blood Count 3.44 X10*6/uL (4.60-5.80); Red Cell Distribution Width 14.6 % (11.0-16.0); White Blood Count 6.2 X10*3/uL (4.8-10.8)
[2022-12-31 10:40] LABS: Alanine Aminotransferase 37 U/L (0-40); Albumin Level 4.4 g/dL (3.5-5.0); Alkaline Phosphatase 82 U/L (39-117); Anion Gap 18 (12-20); Aspartate Amino Transferase 70 U/L (5-37); Bilirubin Total 1.4 mg/dL (0.0-1.0); Blood Urea Nitrogen 17 mg/dL (9-16); Calcium 9.1 mg/dL (8.4-10.2); Carbon Dioxide 28 mmol/L (22-29); Chloride 94 mmol/L (96-108); Creatinine Clr Calc Pharmacy 107.5; Estimated Glomerular Filt Rate > 60; Ethanol < 10 mg/dL; Glucose Random 96 mg/dL (60-115); Magnesium 1.5 mg/dL (1.6-2.6); Potassium 3.2 mmol/L (3.3-5.1); Sodium 137 mmol/L (135-145); Total Protein 7.4 g/dL (6.5-8.0)
[2022-12-31 11:47] VITALS: BP 137/78; PULSE 70; RESP 19; O2SAT 97
[2022-12-31] MEDS: PHENobarbitaL sodium 130 MG/ML IM ONCE 252 MG IM (11:49)
[2022-12-31 11:58] LABS: Appearance Urine Clear; Color Urine Dark Yellow; Glucose Urine UA 250 mg/dL (Negative); Leukocyte Esterase Urine Negative (Negative); Nitrite Urine Negative (Negative); PH >= 9.0 (5.0-9.0); Specific Gravity - Urine >= 1.030 (1.005-1.025); UMIC TRIGGER UACC YES; Urine Blood Negative (Negative); Urine Ketones 80 mg/dL (Negative); Urine Protein 100 (2+) mg/dL (Neg-Trace)
[2022-12-31 12:01] LABS: Bacteria Urine None Seen (None Seen); Hyaline Casts Urine 0-2 /LPF (0-2); RBC Urine 0-2 /HPF (0-2); Squamous Epithelial Cell Urine 0-2 /HPF (0-2); WBC Urine 0-5 /HPF (0-5)
[2022-12-31 12:08] LABS: Amphetamine Screen Urine Not Detected (Not Detect); Barbiturates, Urine Not Detected (Not Detect); Benzodiazepines Screen Urine Not Detected (Not Detect); Cannabinoid Screen Urine POSITIVE (Not Detect); Cocaine Screen Urine Not Detected (Not Detect); Fentanyl, urine Not Detected (Not Detect); Opiate Screen Urine Not Detected (Not Detect); Phencyclidine Screen Urine Not Detected (Not Detect)
--- NOTE | 2022-12-31 12:21 | ECG_ITS ---
Test Reason : HYPOKALEMIA Blood Pressure : / mmHG Vent. Rate : 064 BPM Atrial Rate : 064 BPM P-R Int : 112 ms QRS Dur : 088 ms QT Int : 440 ms P-R-T Axes : 012 079 070 degrees QTc Int : 453 ms Normal sinus rhythm with sinus arrhythmia Normal ECG When compared with ECG of 13-AUG-2022 11:06, No significant change was found Referred By: Diego Thomas Electronically Signed By:ANGELA COSTA
--- NOTE | 2022-12-31 12:31 | PM.IMHP ---
History of Present Illness Date of Service: 12/31/22 Chief Complaint: Nausea and vomitting PMFSH Medical History Depression ETOH abuse GERD (gastroesophageal reflux disease) Neuropathy Social History Household Members: Other Household Members Other:: mother Housing: Apartment Do you presently have visiting nurse or other home services: No Alcohol intake: current Alcohol intake frequency: 3 or more drinks per day Alcohol type: hard liquor Patient Tobacco Use Status: Current everyday Tobacco user Tobacco use type: Cigarette Cigarette Packs Per Day: 0.5 Cigarettes Per Day: 10.0 Years Smoked: 25 Smoked in Last 30 Days: Yes Second Hand Smoke Exposure: Yes Use of substances other than those prescribed or required for medical reasons: Yes Substance Use Type: Marijuana Advance Directives: No Advance Directives Information Provided: No service: No Current occupational status: unemployed Sexual orientation: Straight/Heterosexual Meds Allergies Allergy/AdvReac Type Severity Reaction Status Date / Time No Known Allergies Allergy Verified 10/05/20 15:39 Active Medications: Current Medications Potassium Chloride (Potassium Chloride/H20) 10 meq in 100 mls @ 100 mls/hr IV ONCE ONE Stop: 12/31/22 13:20 Magnesium Sulfate (Magnesium Sulfate/H2o) 2 gm in 50 mls @ 25 mls/hr IV ONCE ONE Stop: 12/31/22 14:20 Pharmacy Consult (Consult Rx Etoh Phenob Im/Po) 1 each MISCELLANE ONCE PRN; Protocol PRN Reason: Consult order Phenobarbital (Phenobarbital 15 Mg Tablet) 45 mg PO BID EILEEN; Protocol Stop: 01/02/23 09:01 Phenobarbital (Phenobarbital 30 Mg Tablet) 30 mg PO BID EILEEN; Protocol Stop: 01/04/23 09:01 Phenobarbital (Phenobarbital 30 Mg Tablet) 30 mg PO Q24H EILEEN; Protocol Stop: 01/05/23 21:01 Phenobarbital Sodium (Phenobarbital Sodium 130 Mg/Ml Vial Im Q3hx2) 189 mg IM Q3H EILEEN; Protocol Stop: 12/31/22 17:31 Home Medications Medication Instructions Recorded Confirmed Last Taken Type nicotine 14 mg/24 hr daily 1 patch topical DAILY 12/14/22 12/14/22 Unknown History transdermal patch pyridoxine (vitamin B6) 50 mg 1 tab PO DAILY 12/14/22 12/14/22 Unknown History tablet sodium chloride 0.65 % nasal spray 2 spray intranasal QID 12/14/22 12/14/22 Unknown History aerosol (Saline Nasal) thiamine HCl (vitamin B1) 100 mg 1 tab PO DAILY 12/14/22 12/14/22 Unknown History tablet Physical Exam Vital Signs and Narrative: Vital Signs: Last Vital Signs Temp 98.8 F 12/31/22 09:22 Pulse 70 12/31/22 11:47 Resp 19 12/31/22 11:47 BP 137/78 12/31/22 11:47 Pulse Ox 97 12/31/22 11:47 O2 Del Method Room Air 12/31/22 11:47 BMI result Body Mass Index 19.9 Results Labs 12/31/22 10:06 12/31/22 10:06 Labs: Laboratory Results - last 24 hr 12/31/22 12/31/22 12/31/22 10:06 10:06 11:48 MCV 97.1 MCH 33.1 H MCHC 34.1 RDW 14.6 Plt Count 56 L MPV 10.5 Immature Gran % (Auto) 0.3 Neut % (Auto) 79.5 H Lymph % (Auto) 9.2 L [place] % (Auto) 10.7 Eos % (Auto) 0.0 Baso % (Auto) 0.3 Lymph # (Auto) 0.6 L [place] # (Auto) 0.7 Eos # (Auto) 0.0 Baso # (Auto) 0.0 Abs Immat Gran (auto) 0.02 Absolute Neuts (auto) 4.9 Absolute Nucleated RBC 0.000 Nucleated RBC % (auto) 0.0 Anion Gap 18 Estim Creat Clear Calc 107.5 Estimated GFR > 60 Random Glucose 96 Calcium 9.1 D Magnesium 1.5 L Total Bilirubin 1.4 H AST 70 H ALT 37 Alkaline Phosphatase 82 Total Protein 7.4 Albumin 4.4 Urine Color Urine Appearance Urine pH Ur Specific Ava Urine Protein Urine Glucose (UA) Urine Ketones Urine Blood Urine Nitrite Ur Leukocyte Esterase Urine RBC Urine WBC Ur Squamous Epith Cells Urine Bacteria Hyaline Casts Urine Opiates Screen Not Detected Urine Fentanyl Screen Not Detected Ur Barbiturates Screen Not Detected Ur Phencyclidine Scrn Not Detected Ur Amphetamines Screen Not Detected U Benzodiazepines Scrn Not Detected Urine Cocaine Screen Not Detected U Marijuana (THC) Screen POSITIVE H Ethyl Alcohol < 10 12/31/22 11:48 MCV MCH MCHC RDW Plt Count MPV Immature Gran % (Auto) Neut % (Auto) Lymph % (Auto) [place] % (Auto) Eos % (Auto) Baso % (Auto) Lymph # (Auto) [place] # (Auto) Eos # (Auto) Baso # (Auto) Abs Immat Gran (auto) Absolute Neuts (auto) Absolute Nucleated RBC Nucleated RBC % (auto) Anion Gap Estim Creat Clear Calc Estimated GFR Random Glucose Calcium Magnesium Total Bilirubin AST ALT Alkaline Phosphatase Total Protein Albumin Urine Color Dark Yellow Urine Appearance Clear Urine pH >= 9.0 Ur Specific [place] >= 1.030 H Urine Protein 100 (2+) H Urine Glucose (UA) 250 H Urine Ketones 80 Urine Blood Negative Urine Nitrite Negative Ur Leukocyte Esterase Negative Urine RBC 0-2 Urine WBC 0-5 Ur Squamous Epith Cells 0-2 Urine Bacteria None Seen Hyaline Casts 0-2 Urine Opiates Screen Urine Fentanyl Screen Ur Barbiturates Screen Ur Phencyclidine Scrn Ur Amphetamines Screen U Benzodiazepines Scrn Urine Cocaine Screen U Marijuana (THC) Screen Ethyl Alcohol Assessment and Plan Time Spent With Patient Time: Total time managing care of this patient today ____ minutes.
--- NOTE | 2022-12-31 12:49 | PHA.MEDREC ---
Pharmacy Consult ? Medication Reconciliation Pharmacy has completed the medication reconciliation.
[2022-12-31 13:44] VITALS: BP 129/81; PULSE 96; RESP 20; O2SAT 99
[2022-12-31] MEDS: Magnesium Sulfate/H2O 2 GM/50 ML PIGGYBACK IV (13:48)
[2022-12-31 14:25] LABS: COVID-19 Test Negative (Negative); IDNOW Serial# BCCEAD1C
[2022-12-31 15:02] VITALS: BP 128/71; PULSE 73; RESP 16; O2SAT 98
[2022-12-31] MEDS: PHENobarbitaL sodium 130 MG/ML VIAL IM Q3Hx2 189 MG IM (15:04)
[2022-12-31] MEDS: Potassium Chloride/H20 10 MEQ/100 ML PIGGYBACK 100 MEQ IV (15:47)
== END 2022-12-31 17:30 | disposition home or self-care (01) ==
PROVIDERS: Emergency Provider Emergency Medicine; PCP Physician Assistant
DX: K29.70 Gastritis, unspecified, without bleeding (principal); E87.6 Hypokalemia; E83.42 Hypomagnesemia; R11.2 Nausea with vomiting, unspecified; Z20.822 Contact with and (suspected) exposure to COVID-19; F17.210 Nicotine dependence, cigarettes, uncomplicated; F12.90 Cannabis use, unspecified, uncomplicated; Z79.899 Other long term (current) drug therapy
CPT/HCPCS: 36415; 80053; 80307; 81001; 82077; 83735; 85025; 87635; 93005; 96361; 96365; 96366; 96372; 96375; 99285; J2060; J2405; J2560; J3475

== ENCOUNTER 2023-10-07 11:40 | Emergency (ER) | payer MEDICAID, SELFPAY ==
--- NOTE | ~2023-10-07 | XR_ITS ---
EXAMINATION: XR CHEST CLINICAL INFORMATION: Cough COMPARISON: None available. TECHNIQUE: CXR from 08/13/2022. Abdomen CT from 10/07/2023. FINDINGS: Lungs are well expanded. The bronchial thompson appear to be mildly thickened. There is a small patchy airspace opacity in the left lower lung. Also, small patchy airspace opacity is present in the lateral right upper lobe just above the level of the minor fissure. Cardiac silhouette has normal size and contour. There is atherosclerotic calcification of the aorta. No pleural effusion. The visualized bones and upper abdomen are unremarkable. XR/XR chest 2V IMPRESSION: The findings on this chest radiograph, and within lower lung zones on the recent abdomen CT, are consistent with respiratory bronchiolitis and pneumonitis/pneumonia.
--- NOTE | ~2023-10-07 | NM_ITS ---
EXAMINATION: PULMONARY PERFUSION STUDY CLINICAL INFORMATION: Elevated d-dimer, chest pain/shortness of breath. COMPARISON: No previous lung scan is available for comparison. Radiographs of the chest dated 10/07/2023, the same date as this lung scan, are available for comparison. TECHNIQUE: Following the intravenous administration of 4.0 mCi Tc-99m MAA an 8-view perfusion study was performed using a dual detector gamma scintillation camera. No ventilation images were obtained. FINDINGS: Perfusion images: No segmental perfusion defects are present. There is moderately severe heterogeneity in the distribution of activity in both lungs. No focal anatomic appearing perfusion defects are present. The cardiac silhouette is prominent but does not appear enlarged and is well matched to the appearance of the chest radiographs. NM/NM pul perfusion IMPRESSION: Low probability of pulmonary embolism.
--- NOTE | ~2023-10-07 | CT_ITS ---
EXAMINATION: CT ABDOMEN AND PELVIS WITH CONTRAST CLINICAL INFORMATION: Epigastric/right upper quadrant/left lower quadrant abdominal pain with nausea and vomiting. COMPARISON: None available. TECHNIQUE: Multidetector volumetric images were obtained from the superior aspect of the liver through the pubic symphysis following administration 85 mL of Omnipaque 350 intravenous contrast. Sagittal and coronal reformatted images were obtained on the technologist's workstation. Oral contrast: No This CT examination was performed using dose optimization techniques as appropriate, variously including the following: *Automated exposure control *Adjustment of mA and/or kV according to patient size (this includes techniques or standardized protocols for targeted exams where dose is matched to indication/reason for exam; i.e. extremities or head) *Use of iterative reconstruction technique DLP: 326 mGy-cm FINDINGS: LUNG BASES: The lungs are well-expanded with patchy atelectatic/infiltrate changes left lower lobe anterobasal segment. Some groundglass densities also visualized in the right middle lobe.. LIVER, GALLBLADDER, AND BILIARY TREE: The liver is enlarged in size measuring 19 seen in craniocaudad length. It is normal shape, and diffuse hypo-attenuation. The left hepatic lobe is small. No focal hepatic lesion or biliary ductal dilatation is present. The gallbladder is unremarkable with no evidence of radiopaque gallstones, gallbladder wall thickening, or obvious pericholecystic inflammatory changes. PANCREAS: Unremarkable. SPLEEN: Unremarkable. ADRENAL GLANDS: Unremarkable. KIDNEYS AND URETERS: The kidneys are normal in size, shape, and attenuation. No hydronephrosis, hydroureter, or calculi seen. No perinephric stranding. BLADDER: Unremarkable. GASTROINTESTINAL TRACT: There is scattered stool, diverticuli and gas seen throughout the colon without distention or diverticulitis. The small bowel gas pattern is nonspecific. Appendix is not visualized. No free air or free fluid seen. ABDOMINAL WALL: No significant hernia is appreciated. LYMPH NODES: Normal. VASCULAR: Unremarkable. PELVIC VISCERA: The prostate gland is enlarged. There is no free air or free fluid seen. OSSEOUS STRUCTURES: Mild ventral spondylosis L4-L5 disc level. CT/CT abdomen pelvis w IV con IMPRESSION: Colonic diverticulosis with mild constipation. No obstruction or diverticulitis. Right hepatomegaly with mild hepatic steatosis. The left hepatic lobe is small. Fleischner guidelines were followed.
--- NOTE | 2023-10-07 11:46 | ECG_ITS ---
Test Reason : CP Blood Pressure : / mmHG Vent. Rate : 083 BPM Atrial Rate : 083 BPM P-R Int : 122 ms QRS Dur : 090 ms QT Int : 398 ms P-R-T Axes : -12 079 035 degrees QTc Int : 467 ms Normal sinus rhythm Nonspecific ST abnormality Abnormal ECG When compared with ECG of 31-DEC-2022 12:56, No significant change was found Referred By: Generic ED Physician Electronically Signed By:Pratik Jackson
[2023-10-07 11:51] VITALS: BP 130/76; PULSE 92; RESP 16; O2SAT 100; BMI 20.8
--- NOTE | 2023-10-07 12:02 | ED_ITS ---
HPI - General Adult General Chief complaint: Upper Respiratory Symptoms Stated complaint: CP,NAUSEA,VOMOTING X4 DAYS PER EMS Time Seen by Provider: 10/07/23 11:59 Source: patient, EMS, RN notes reviewed and old records reviewed Mode of arrival: EMS History of Present Illness HPI narrative: 42-year-old male with a past medical history of depression, ETOH abuse (last drink around 22:00 yesterday), GERD, presenting to the ED via EMS complaining of left-sided chest pain worse with deep breathing and movement, SOB, productive cough, abdominal pain, nausea/vomiting and decreased p.o. intake x4 days. Reports mild constipation. Admits to sick contacts on . Denies known fever/chills, dysuria/hematuria, recent travel Onset (ago): day(s) Related Data Home Medications Medication Instructions Recorded Confirmed naltrexone 50 mg tablet 50 mg PO DAILY 12/31/22 12/31/22 pyridoxine (vitamin B6) 50 mg 50 mg PO DAILY 12/31/22 12/31/22 tablet thiamine HCl (vitamin B1) 100 mg 100 mg PO DAILY 12/31/22 12/31/22 tablet Previous Rx's Medication Instructions Recorded amoxicillin 500 mg capsule 1,000 mg (2 x 500 mg) PO Q12H 7 10/07/23 days #28 caps azithromycin 250 mg tablet 250 mg PO DAILY 4 days #4 tabs 10/07/23 Allergies Allergy/AdvReac Type Severity Reaction Status Date / Time No Known Allergies Allergy Verified 10/05/20 15:39 Review of Systems 2 Review of Systems: Constitutional: No Fever, No Chills ENT/Mouth: No Ear Pain, No Nasal Congestion, No sore throat, No Rhinorrhea, No Swallowing Difficulty Cardiovascular: + Chest Pain, + SOB Respiratory: + Cough, + Sputum, No Wheezing Gastrointestinal: + Nausea, + Vomiting, No Diarrhea, + Constipation, +Abdominal pain Genitourinary: No Dysuria, No Urinary Frequency, No Hematuria, No Flank Pain Musculoskeletal: No joint pain, No Myalgias, No Joint Swelling Skin: No Skin Lesions, No rash Neuro: No Weakness Yes all other systems are reviewed and are negative Constitutional: Constitutional: Reports as per [facility] Past Medical History Attestation statement: The following information was validated with the patient. Source: old records reviewed Onset Date is defined in the Problem List Problems that require an onset date and time if occurred within 24 hrs of arrival to the ED Aortic Dissection and Rupture; Neurologic impairment; Cardiopulmonary Arrest; Endotracheal Intubation; Insertion or Replacement of Mechanical Circulatory Assist Device Medical History Depression ETOH abuse Neuropathy GERD (gastroesophageal reflux disease) Social History Social History Household Members: Other Household Members Other:: mother Housing: Apartment Do you presently have visiting nurse or other home services: No Alcohol intake: current Alcohol intake frequency: 3 or more drinks per day Alcohol type: hard liquor Comment: 1:1 SITTER Patient Tobacco Use Status: Current everyday Tobacco user Tobacco use type: Cigarette Cigarette Packs Per Day: 0.5 Cigarettes Per Day: 10.0 Years Smoked: 25 Second Hand Smoke Exposure: Yes Substance Use Type: Marijuana Advance Directives: No Advance Directives Information Provided: Yes service: No Current occupational status: unemployed Sexual orientation: Straight/Heterosexual Physical Exam ED Vital Signs: Vital Signs - 24 hr 10/07/23 11:51 10/07/23 12:27 10/07/23 14:08 Temperature 98.5 F Pulse Rate 92 96 Respiratory Rate 16 12 Blood Pressure 130/76 139/80 Pulse Oximetry 100 96 Oxygen Delivery Method Room Air Room Air 10/07/23 16:52 Temperature 98.3 F Pulse Rate 79 Respiratory Rate 20 Blood Pressure 143/85 H Pulse Oximetry 98 Oxygen Delivery Method Room Air BMI result Body Mass Index 20.8 Const General: cooperative, healthy appearing and no acute distress Orientation/consciousness: patient oriented x3 Limitations: no limitations HENMT Head: Yes normal to inspection and Yes atraumatic Ears: hearing grossly normal bilaterally General nose exam: Normal external nose present Face and sinus: Yes normal facial exam Eyes General: appearance normal, both eyes and all related structures EOM: EOMs intact bilaterally Neck Neck: Yes normal visual inspection and Yes no meningeal signs Chest Other: No chest wall erythema/ecchymosis or evidence of trauma Chest palpation & inspection: normal inspection of the chest, no crepitus and tenderness (left anterior lateral rib tenderness reproducing subjective complaint.) Resp Effort & Inspection: normal respiratory effort, not labored and no respiratory distress Auscultation: clear to auscultation bilaterally and no wheezes Cardio Rate: regular rate Heart sounds: S1 normal heart sound present and S2 normal heart sound present GI Inspection: Yes normal to inspection Palpation (GI): Soft to palpation, Tenderness to palpation present (GI) in the epigastrum, in the LLQ and in the RUQ; with no rebound tenderness, no guarding and not rigid General: Yes no CVA tenderness Back/Spine/Pelvis Back: no CVA tenderness Skin Rashes: no rashes Wounds: no wounds Neuro General: patient oriented x3, tone normal and no meningeal signs Cranial nerves: Yes CN's II-XII intact bilaterally Gait exam (Neuro): Normal gait present Extrem General: Yes normal to inspection Course Course Course Narrative: -1410--no leukocytosis. H&H stable. -D-dimer elevated to 292 > patient already received CT AP with IV contrast >> will obtain nuclear medicine V/Q scan to r/o PE -potassium low to 3.0 & Magnesium 1.5 > p.o. repletion ordered. Chronically elevated T bili and AST -initial troponin 5.1 > will obtain 3 hour repeat. Ethanol 174 -viral testing negative 1512--CT abdomen pelvis w IV con IMPRESSION: Colonic diverticulosis with mild constipation. No obstruction or diverticulitis. Right hepatomegaly with mild hepatic steatosis. The left hepatic lobe is small. Fleischner guidelines were followed. XR chest 2V IMPRESSION: The findings on this chest radiograph, and within lower lung zones on the recent abdomen CT, are consistent with respiratory bronchiolitis and pneumonitis/pneumonia. > PO Amoxicillin and Azithromycin ordered -1630--ED care transferred to MARYLOU Murphy pending repeat BMP/Trop, UA & V/Q scan Reevaluation(s) Reevaluation #1: 1730-I received sign-out on this patient at 1600 pending V/Q scan results and repeat lab work. V/Q scan shows low probability of PE. Patient has pneumonia on chest x-ray. He has no clinical findings concerning for DVT. He is not hypoxic, tachypneic or tachycardic to suggest concern for PE. His repeat magnesium potassium are normal. He is speaking full sentences. He is not requiring supplemental oxygen. I will discharge him home with oral antibiotics. Reviewed worrisome signs and symptoms of when to return to the emergency room. Comfortable plan for discharge home. Medications Administered Discontinued Medications Generic Name Dose Route Start Last Admin Trade Name Helen PRN Reason Stop Dose Admin Amoxicillin 1,000 mg 10/07/23 15:58 10/07/23 16:37 Amoxicillin 500 Mg Capsule PO 10/07/23 15:59 1,000 mg ONCE ONE Administration Azithromycin 500 mg 10/07/23 15:58 10/07/23 16:37 Azithromycin 500 Mg Tablet PO 10/07/23 15:59 500 mg ONCE ONE Administration Famotidine 20 mg 10/07/23 12:07 10/07/23 12:46 Famotidine/Pf 20 Mg/2 Ml Vial IVPUSH 10/07/23 12:08 20 mg ONCE ONE Administration Sodium Chloride 1,000 mls @ 999 mls/hr 10/07/23 12:15 10/07/23 14:00 Ns IV 10/07/23 13:15 Infused .Q1H1M EILEEN Infusion Iohexol 100 ml 10/07/23 13:33 10/07/23 13:34 Iohexol 350 Mg/Ml 100 Ml Infus..Btl IV 10/07/23 13:34 85 ml ONCE ONE Administration Ketorolac Tromethamine 15 mg 10/07/23 12:07 10/07/23 12:46 Ketorolac Tromethamine 15 Mg/Ml Vial IVPUSH 10/07/23 12:08 15 mg ONCE ONE Administration Magnesium Oxide 800 mg 10/07/23 14:23 10/07/23 15:33 Magnesium Oxide 400 Mg Tablet PO 10/07/23 14:24 800 mg ONCE ONE Administration Ondansetron HCl 4 mg 10/07/23 12:07 10/07/23 12:46 Ondansetron Hcl 4 Mg/2 Ml Vial IVPUSH 10/07/23 12:08 4 mg ONCE ONE Administration Potassium Chloride 60 meq 10/07/23 14:23 10/07/23 15:33 Potassium Chloride Packet 20 Meq Packet PO 10/07/23 14:24 60 meq ONCE ONE Administration Medical Decision Making Medical Decision Making MDM Narrative: 42-year-old male with a past medical history of depression, ETOH abuse (last drink around 22:00 yesterday), GERD, presenting to the ED via EMS complaining of left-sided chest pain worse with deep breathing and movement, SOB, productive cough, abdominal pain, nausea/vomiting and decreased p.o. intake x4 days. On exam vital signs stable, NAD, lungs CTA, chest pain reproducible to palpation, lungs CTA, abdomen soft with RUQ/epigastric and LLQ tenderness, no rebound or guarding. Concern for viral illness vs pancreatitis/cholecystitis/lithiasis or diverticulitis/colitis and metabolic abnormalities. Concern for atypical ACS vs pneumonia or PE. Plan: EKG, labs, UA, viral testing, CXR, CT AP, IVF, GI cocktail, re-evaluate Please refer to course for remaining clinical decision making, interpretation of labs/imaging results, and discussions with consultants and/or family members. Differential Diagnosis Differential Diagnoses: The differential diagnosis associated with the presentation includes As above Admission/Observation Consideration of admission/observation: Escalation of care including admission/observation considered Lab Data MDM Lab Attestation statement: I reviewed the patient's lab results. 10/07/23 12:33 10/07/23 16:39 Labs: Lab Results 10/07/23 10/07/23 Range/Units 12:33 16:39 WBC 10.6 (4.8-10.8) X10*3/uL RBC 3.42 L (4.60-5.80) X10*6/uL Hgb 12.2 L (14.0-18.0) g/dl Hct 34.0 L (42.0-52.0) % MCV 99.4 H (80.0-98.0) fL MCH 35.7 H (27.0-33.0) pg MCHC 35.9 (31.0-36.0) g/dl RDW 13.7 (11.0-16.0) % Plt Count 31 L D (160-400) X10*3/uL MPV 10.7 (9.4-12.4) fL Immature Gran % (Auto) 0.4 (0.0-0.4) % Neut % (Auto) 82.2 H (45-73) % Lymph % (Auto) 9.1 L (20-40) % Story % (Auto) 8.1 (2-11) % Eos % (Auto) 0.0 (0-4) % Baso % (Auto) 0.2 (0-2) % Lymph # (Auto) 1.0 L (1.2-4.9) X10*3/uL Story # (Auto) 0.9 (0.1-1.2) X10*3/uL Eos # (Auto) 0.0 (0.0-0.4) X10*3/uL Baso # (Auto) 0.0 (0.0-0.2) X10*3/uL Abs Immat Gran (auto) 0.04 H (0.00-0.03) X10*3/uL Absolute Neuts (auto) 8.7 H (2.0-8.3) x10*3/uL Absolute Nucleated RBC 0.000 (0.0-0.012) X10*3/uL Nucleated RBC % (auto) 0.0 (0.0-0.2) /100WBC PT 11.8 (11.1-13.3) SEC INR 1.0 (0.9-1.1) D-Dimer High Sensitivty 292 NG/ML Sodium 136 137 (135-145) mmol/L Potassium 3.0 L 3.9 D (3.3-5.1) mmol/L Chloride 91 L 96 (96-108) mmol/L Carbon Dioxide 29 27 (22-29) mmol/L Anion Gap 19 18 (12-20) BUN 17 H 15 (9-16) mg/dL Creatinine 0.76 0.72 (0.5-1.4) mg/dL Estim Creat Clear Calc 115.3 121.7 Estimated GFR > 60 > 60 Random Glucose 89 85 (60-115) mg/dL Calcium 9.5 8.7 D (8.4-10.2) mg/dL Magnesium 1.5 L (1.6-2.6) mg/dL Total Bilirubin 1.1 H (0.0-1.0) mg/dL Direct Bilirubin 0.4 (0.0-0.5) mg/dL AST 58 H (5-37) U/L ALT 33 (0-40) U/L Alkaline Phosphatase 79 (39-117) U/L Troponin I High Sens 5.1 4.7 (<3.5-35.0) ng/L Total Protein 8.7 H (6.5-8.0) g/dL Albumin 4.6 (3.5-5.0) g/dL Lipase 19 (8-78) U/L Urine Color Dark Yellow Urine Appearance Clear Urine pH 7.0 (5.0-9.0) Ur Specific [place] >= 1.030 H (1.005-1.025) Urine Protein 300 (3+) H (Neg-Trace) mg/dL Urine Glucose (UA) Negative (Negative) mg/dL Urine Ketones Trace (Negative) mg/dL Urine Blood Small (1+) H (Negative) Urine Nitrite Negative (Negative) Ur Leukocyte Esterase Negative (Negative) Urine RBC 6-10 H (0-2) /HPF Urine WBC 0-5 (0-5) /HPF Ur Squamous Epith Cells 0-2 (0-2) /HPF Urine Bacteria None Seen (None Seen) Hyaline Casts 0-2 (0-2) /LPF Ethyl Alcohol 174 mg/dL Influenza Type A (PCR) NEGATIVE (Negative) Influenza Type B (PCR) NEGATIVE (Negative) RSV RNA Qual (PCR) NEGATIVE (Negative) SARS-CoV-2 RNA (RT-PCR) NEGATIVE (Negative) Independent Interpretation I performed an independent interpretation of an: EKG (My interpretation EKG normal sinus rhythm rate of 83. QRS duration 90. QTC 467. No significant change when compared to prior. No STEMI), Plain X-Ray and CT Scan Radiology Impression Discussion of test interpretation with radiology: I have reviewed the radiologist's reading. Independent Historian Clinical information obtained from an independent historian. History obtained from or confirmed by: EMS External Record Review External record reviewed: Inpatient record, Office record, Outpatient record, Prior outpatient labs, Prior outpatient radiology, Primary care record and Outside ED record Tests considered The following testing was considered but not selected: As above Prescription Management I considered prescription management with: Pain Medication Social Determinants Patient?s care significantly limited by Social Determinants of Health including: Low income and Alcoholism and drug addiction in family Discharge Plan Discharge Clinical Impression: Pneumonia, Chest pain, Abdominal pain, Nausea & vomiting Patient Disposition: Home, Self-Care Instructions: Pneumonia (ED) Additional Instructions: You have pneumonia. Amoxicillin and azithromycin are antibiotics please take as prescribed Your potassium and magnesium were low today however repleted follow-up with your doctor Prescriptions: New amoxicillin 500 mg capsule 1,000 mg PO Q12H 7 Days Qty: 28 0RF azithromycin 250 mg tablet 250 mg PO DAILY 4 Days Qty: 4 0RF Rx Instructions: start on day 2 of therapy No Action naltrexone 50 mg tablet 50 mg PO DAILY thiamine HCl (vitamin B1) 100 mg tablet 100 mg PO DAILY pyridoxine (vitamin B6) 50 mg tablet 50 mg PO DAILY Referrals: Emily Perez PA [Primary Care Provider] - 2 days
[2023-10-07 12:27] VITALS: TEMP 36.9
[2023-10-07 12:38] LABS: MANUAL DIFF FLAG NO
[2023-10-07 12:42] LABS: Basophils Percent Auto 0.2 % (0-2); Hemoglobin 12.2 g/dl (14.0-18.0); Imm Gran Abs Auto 0.04 X10*3/uL (0.00-0.03); Imm Gran Pct Auto 0.4 % (0.0-0.4); Lymphocytes Percent Auto 9.1 % (20-40); Mean Corpuscular HGB Conc 35.9 g/dl (31.0-36.0); Mean Corpuscular Hemoglobin 35.7 pg (27.0-33.0); Mean Corpuscular Volume 99.4 fL (80.0-98.0); Mean Platelet Volume 10.7 fL (9.4-12.4); Monocytes Absolute Auto 0.9 X10*3/uL (0.1-1.2); Monocytes Percent Auto 8.1 % (2-11); Neutrophils Absolute Auto 8.7 x10*3/uL (2.0-8.3); Neutrophils Percent Auto 82.2 % (45-73); Platelet Count 31 X10*3/uL (160-400); Red Blood Count 3.42 X10*6/uL (4.60-5.80); Red Cell Distribution Width 13.7 % (11.0-16.0); White Blood Count 10.6 X10*3/uL (4.8-10.8)
[2023-10-07 12:45] LABS: Prothrombin Time 11.8 SEC (11.1-13.3)
[2023-10-07] MEDS: ondansetron HCL 4 MG/2 ML VIAL IVPUSH (12:46)
[2023-10-07] MEDS: Famotidine/PF 20 MG/2 ML VIAL IVPUSH (12:46)
[2023-10-07] MEDS: Ketorolac Tromethamine 15 MG/ML VIAL IVPUSH (12:46)
[2023-10-07 12:47] LABS: D Dimer High Sensitivity 292 NG/ML
[2023-10-07] MEDS: 0.9 % Sodium Chloride 1,000 ML 999 ML IV (12:49)
[2023-10-07 12:54] LABS: Ethanol 174 mg/dL
[2023-10-07 12:58] LABS: Alanine Aminotransferase 33 U/L (0-40); Albumin Level 4.6 g/dL (3.5-5.0); Alkaline Phosphatase 79 U/L (39-117); Anion Gap 19 (12-20); Aspartate Amino Transferase 58 U/L (5-37); Bilirubin Direct 0.4 mg/dL (0.0-0.5); Bilirubin Total 1.1 mg/dL (0.0-1.0); Blood Urea Nitrogen 17 mg/dL (9-16); Calcium 9.5 mg/dL (8.4-10.2); Carbon Dioxide 29 mmol/L (22-29); Chloride 91 mmol/L (96-108); Creatinine Clr Calc Pharmacy 115.3; Estimated Glomerular Filt Rate > 60; Glucose Random 89 mg/dL (60-115); Lipase 19 U/L (8-78); Magnesium 1.5 mg/dL (1.6-2.6); Sodium 136 mmol/L (135-145); Total Protein 8.7 g/dL (6.5-8.0)
[2023-10-07 13:17] LABS: Troponin-I High Sensitivity 5.1 ng/L (<3.5-35.0)
[2023-10-07 13:26] LABS: Influenza A PCR NEGATIVE (Negative); Influenza B PCR NEGATIVE (Negative); Resp Syncy Virus RNA Qual PCR NEGATIVE (Negative); SARS COV2 PCR INHOUSE NEGATIVE (Negative)
[2023-10-07] MEDS: iohexoL 350 MG/ML 100 ML INFUS..BTL IV (13:34)
[2023-10-07 14:08] VITALS: BP 139/80; PULSE 96; RESP 12; O2SAT 96
[2023-10-07] MEDS: Potassium Chloride Packet 20 MEQ PACKET 60 MEQ PO (15:33)
[2023-10-07] MEDS: Magnesium Oxide 400 MG TABLET 800 MG PO (15:33)
[2023-10-07] MEDS: Azithromycin 500 MG TABLET PO (16:37)
[2023-10-07] MEDS: Amoxicillin 500 MG CAPSULE 1000 MG PO (16:37)
[2023-10-07 16:51] LABS: Appearance Urine Clear; Color Urine Dark Yellow; Glucose Urine UA Negative (Negative); Leukocyte Esterase Urine Negative (Negative); Nitrite Urine Negative (Negative); Specific Gravity - Urine >= 1.030 (1.005-1.025); UMIC TRIGGER UACC YES; Urine Blood Small (1+) (Negative); Urine Ketones Trace mg/dL (Negative); Urine Protein 300 (3+) mg/dL (Neg-Trace)
[2023-10-07 16:52] VITALS: BP 143/85; PULSE 79; RESP 20; TEMP 36.8; O2SAT 98
[2023-10-07 16:54] LABS: Bacteria Urine None Seen (None Seen); Hyaline Casts Urine 0-2 /LPF (0-2); Squamous Epithelial Cell Urine 0-2 /HPF (0-2); WBC Urine 0-5 /HPF (0-5)
[2023-10-07 17:04] LABS: Anion Gap 18 (12-20); Blood Urea Nitrogen 15 mg/dL (9-16); Calcium 8.7 mg/dL (8.4-10.2); Carbon Dioxide 27 mmol/L (22-29); Chloride 96 mmol/L (96-108); Creatinine Clr Calc Pharmacy 121.7; Estimated Glomerular Filt Rate > 60; Glucose Random 85 mg/dL (60-115); Potassium 3.9 mmol/L (3.3-5.1); Sodium 137 mmol/L (135-145)
[2023-10-07 17:10] LABS: Troponin-I High Sensitivity 4.7 ng/L (<3.5-35.0)
== END 2023-10-07 17:55 | disposition home or self-care (01) ==
PROVIDERS: Physician Assistant; Emergency Provider Emergency Medicine; PCP Physician Assistant
DX: J18.9 Pneumonia, unspecified organism (principal); R07.9 Chest pain, unspecified; R11.2 Nausea with vomiting, unspecified; Z20.822 Contact with and (suspected) exposure to COVID-19; Z20.828 Contact with and (suspected) exposure to other viral communicable diseases; R06.02 Shortness of breath; F17.210 Nicotine dependence, cigarettes, uncomplicated; F12.90 Cannabis use, unspecified, uncomplicated; Z79.899 Other long term (current) drug therapy
CPT/HCPCS: 0241U; 36415; 71046; 74177; 78580; 80048; 80076; 80307; 81001; 83690; 83735; 84484; 85025; 85379; 85610; 93005; 96361; 96374; 96375; 99284; A9540; J1885; J2405; Q9967

== ENCOUNTER → 2023-10-07 11:46 | Outpatient (BNV) | payer MEDICAID, SELFPAY | PROVIDERS: Emergency Provider Emergency Medicine; PCP Physician Assistant; Visit Provider Internal Medicine Cardiovascular Disease | DX: R94.31 Abnormal electrocardiogram [ECG] [EKG] (principal) | CPT/HCPCS: 93010 ==

== ENCOUNTER 2023-11-04 23:28 | Emergency (ER) | payer MEDICAID, SELFPAY ==
[2023-11-04 23:36] VITALS: PULSE 94; O2SAT 98; BMI 20.2
--- NOTE | 2023-11-04 23:53 | ED_ITS ---
HPI - Psych General Chief Complaint: Psychiatric Symptoms Stated Complaint: SI HI ETOH Time Seen by Provider: 11/04/23 23:43 Source: patient Mode of arrival: EMS Limitations: no limitations History of Present Illness HPI Narrative: Patient is a 42 year old male who presents emergency department via EMS. He was found walking along the road endorsing SI/HI. Patient continuously repeating ?I am going to fucking lose my mind, I am going to kill everyone and everything?. He does not provide any specific plan. He reports severe anxiety stating that he is getting kicked out of where he is residing seen and he is going to be homeless. Clinically he appears intoxicated and He does admit to consuming a pt of vodka today. He is interested in detox from alcohol stating that he is a daily drinker but denies any history of ETOH withdrawal or seizures. He is agitated, repetitively punching pillow in his room, stating that this is the only way he can try to decrease his anxiety at this time. Related Data Home Medications Medication Instructions Recorded Confirmed naltrexone 50 mg tablet 50 mg PO DAILY 12/31/22 12/31/22 pyridoxine (vitamin B6) 50 mg 50 mg PO DAILY 12/31/22 12/31/22 tablet thiamine HCl (vitamin B1) 100 mg 100 mg PO DAILY 12/31/22 12/31/22 tablet albuterol sulfate 90 mcg/actuation 2 puff inhalation DAILY 11/05/23 11/05/23 aerosol inhaler (Ventolin HFA) Previous Rx's Medication Instructions Recorded amoxicillin 500 mg capsule 1,000 mg (2 x 500 mg) PO Q12H 7 10/07/23 days #28 caps azithromycin 250 mg tablet 250 mg PO DAILY 4 days #4 tabs 10/07/23 Allergies Allergy/AdvReac Type Severity Reaction Status Date / Time No Known Allergies Allergy Verified 10/05/20 15:39 Review of Systems 2 Review of Systems: Yes all other systems are reviewed and are negative PMFSH Past Medical History Attestation statement: The following information was validated with the patient. Source: old records reviewed Medical History Depression ETOH abuse Neuropathy GERD (gastroesophageal reflux disease) Social History Social History Household Members: Other Household Members Other:: mother Housing: Apartment Do you presently have visiting nurse or other home services: No Alcohol intake: current Alcohol intake frequency: 3 or more drinks per day Alcohol type: hard liquor Comment: 1:1 SITTER Patient Tobacco Use Status: Current everyday Tobacco user Tobacco use type: Cigarette Cigarette Packs Per Day: 0.5 Cigarettes Per Day: 10.0 Years Smoked: 25 Smoked in Last 30 Days: Yes Second Hand Smoke Exposure: Yes Use of substances other than those prescribed or required for medical reasons: Yes Substance Use Type: Marijuana Substance Use Frequency: Daily Advance Directives: No Advance Directives Information Provided: Yes service: No Current occupational status: unemployed Sexual orientation: Straight/Heterosexual Physical Exam 2 Vital Signs: Vital Signs: Last Vital Signs Temp 98.0 F 11/04/23 23:58 Pulse 95 11/04/23 23:58 Resp 20 11/04/23 23:58 BP 148/100 H 11/04/23 23:58 Pulse Ox 96 11/04/23 23:58 O2 Del Method Room Air 11/04/23 23:58 BMI result Body Mass Index 20.2 Appearance: Alert.?Oriented to person, place and time. No acute distress.?Normal affect. Eyes: Pupils equal, round and reactive to light.? ENT: Pharynx normal.?? Neck: Normal inspection.? Neck supple.?? CVS: Heart sounds normal. Normal heart rate and rhythm.? Pulses normal.?? Respiratory: No respiratory distress.? Lung sounds clear to auscultation bilaterally?? Abdomen: Soft and non-tender. Normoactive bowel sounds. No pulsatile mass.?? Skin: Skin warm and dry.? Normal skin color.? Normal skin turgor.?? Extremities: No lower extremity edema.? No calf ttp? Neuro: Moves all extremities spontaneously. Sensation intact bilaterally. CN II- XII intact. No focal neuro deficits. Ambulates with normal steady gait. Medications Administered Discontinued Medications Generic Name Dose Route Start Last Admin Trade Name Freq PRN Reason Stop Dose Admin Lorazepam 2 mg 11/05/23 00:32 11/05/23 01:02 Lorazepam 1 Mg Tablet PO 11/05/23 00:33 2 mg ONCE ONE Administration Medical Decision Making Medical Decision Making MDM Narrative: Patient is a 42 old male with past medical history of depression, alcohol use disorder, GERD presenting to emergency department via EMS for evaluation of SI/HI without a specific plan and clinically appears intoxicated while endorsing ETOH consumption. He does report that he is interested in detox, denies any additional recreational drug usage. He denies any physical complaints at this time. He does appear agitated with high anxiety, he is non threatening towards staff at this time, asking for something to help relax his nerves which I feel is reasonable. He is to receive Ativan by mouth. Will obtain basic labs for medical clearance/exclude organic cause, toxicology testing will be obtained and he will have referral to care team for further disposition, inpatient psychiatric care versus outpatient services versus detox. Differential Diagnosis Differential Diagnoses: The differential diagnosis associated with the presentation includes (As per narrative above) Admission/Observation Consideration of admission/observation: Escalation of care including admission/observation considered (Requires physician observation so the care team evaluation can ensue and safe disposition can be determined as per narrative above) Consult Healthcare Provider Management of the patient was discussed with: Behavioral Health Provider Lab Data MDM Lab Attestation statement: I reviewed the patient's lab results. CBC is without leukocytosis, macrocytic anemia consistent with baseline, thrombocytopenia is actually improved when compared to priors. Mildly elevated LFT consistent with prior. etoh 409 11/05/23 00:10 11/05/23 00:10 Labs: Lab Results 11/05/23 Range/Units 00:10 WBC 5.5 (4.8-10.8) X10*3/uL RBC 3.14 L (4.60-5.80) X10*6/uL Hgb 11.6 L (14.0-18.0) g/dl Hct 33.6 L (42.0-52.0) % MCV 107.0 H (80.0-98.0) fL MCH 36.9 H (27.0-33.0) pg MCHC 34.5 (31.0-36.0) g/dl RDW 14.4 (11.0-16.0) % Plt Count 104 L D (160-400) X10*3/uL MPV 9.5 (9.4-12.4) fL Immature Gran % (Auto) 0.2 (0.0-0.4) % Neut % (Auto) 40.5 L (45-73) % Lymph % (Auto) 41.8 H (20-40) % [place] % (Auto) 13.2 H (2-11) % Eos % (Auto) 2.9 (0-4) % Baso % (Auto) 1.4 (0-2) % Lymph # (Auto) 2.3 (1.2-4.9) X10*3/uL [place] # (Auto) 0.7 (0.1-1.2) X10*3/uL Eos # (Auto) 0.2 (0.0-0.4) X10*3/uL Baso # (Auto) 0.1 (0.0-0.2) X10*3/uL Abs Immat Gran (auto) 0.01 (0.00-0.03) X10*3/uL Absolute Neuts (auto) 2.2 (2.0-8.3) x10*3/uL Absolute Nucleated RBC 0.000 (0.0-0.012) X10*3/uL Nucleated RBC % (auto) 0.0 (0.0-0.2) /100WBC Sodium 144 (135-145) mmol/L Potassium 3.8 (3.3-5.1) mmol/L Chloride 105 (96-108) mmol/L Carbon Dioxide 29 (22-29) mmol/L Anion Gap 14 (12-20) BUN 13 (9-16) mg/dL Creatinine 0.84 (0.5-1.4) mg/dL Estim Creat Clear Calc 104.3 Estimated GFR > 60 Random Glucose 91 (60-115) mg/dL Calcium 9.9 D (8.4-10.2) mg/dL Total Bilirubin 0.4 (0.0-1.0) mg/dL AST 76 H (5-37) U/L ALT 45 H (0-40) U/L Alkaline Phosphatase 83 (39-117) U/L Total Protein 8.8 H (6.5-8.0) g/dL Albumin 4.9 (3.5-5.0) g/dL Urine Color Yellow Urine Appearance Clear Urine pH 6.0 (5.0-9.0) Ur Specific [place] 1.010 (1.005-1.025) Urine Protein Negative (Neg-Trace) mg/dL Urine Glucose (UA) Negative (Negative) mg/dL Urine Ketones Negative (Negative) mg/dL Urine Blood Negative (Negative) Urine Nitrite Negative (Negative) Ur Leukocyte Esterase Negative (Negative) Urine Opiates Screen Not Detected (Not Detect) Urine Fentanyl Screen Not Detected (Not Detect) Ur Barbiturates Screen Not Detected (Not Detect) Ur Phencyclidine Scrn Not Detected (Not Detect) Ur Amphetamines Screen Not Detected (Not Detect) U Benzodiazepines Scrn Not Detected (Not Detect) Urine Cocaine Screen Not Detected (Not Detect) U Marijuana (THC) Screen POSITIVE H (Not Detect) Ethyl Alcohol 409 H* mg/dL COVID-19 (MUSHTAQ) Negative (Negative) COVID-19 Clin Com See Note Independent Historian Clinical information obtained from an independent historian. History obtained from or confirmed by: EMS External Record Review External record reviewed: Outpatient record Discharge Plan Discharge Clinical Impression: Suicidal ideation, Alcohol use Patient Disposition: Still a Patient Prescriptions: No Action naltrexone 50 mg tablet 50 mg PO DAILY thiamine HCl (vitamin B1) 100 mg tablet 100 mg PO DAILY pyridoxine (vitamin B6) 50 mg tablet 50 mg PO DAILY amoxicillin 500 mg capsule 1,000 mg PO Q12H 7 Days Qty: 28 0RF azithromycin 250 mg tablet 250 mg PO DAILY 4 Days Qty: 4 0RF Rx Instructions: start on day 2 of therapy albuterol sulfate [Ventolin HFA] 90 mcg/actuation HFA aerosol inhaler 2 puff inhalation DAILY Interventions: [place]-Suicide Risk Severity Scale Last Done: 11/05/23 00:00
[2023-11-04 23:58] VITALS: BP 148/100; PULSE 95; RESP 20; TEMP 36.7; O2SAT 96
[2023-11-05 00:25] LABS: MANUAL DIFF FLAG NO
[2023-11-05 00:27] LABS: Basophils Absolute Auto 0.1 X10*3/uL (0.0-0.2); Basophils Percent Auto 1.4 % (0-2); Eosinophils Absolute Auto 0.2 X10*3/uL (0.0-0.4); Eosinophils Percent Auto 2.9 % (0-4); Hematocrit 33.6 % (42.0-52.0); Hemoglobin 11.6 g/dl (14.0-18.0); Imm Gran Abs Auto 0.01 X10*3/uL (0.00-0.03); Imm Gran Pct Auto 0.2 % (0.0-0.4); Lymphocytes Absolute Auto 2.3 X10*3/uL (1.2-4.9); Lymphocytes Percent Auto 41.8 % (20-40); Mean Corpuscular HGB Conc 34.5 g/dl (31.0-36.0); Mean Corpuscular Hemoglobin 36.9 pg (27.0-33.0); Mean Platelet Volume 9.5 fL (9.4-12.4); Monocytes Absolute Auto 0.7 X10*3/uL (0.1-1.2); Monocytes Percent Auto 13.2 % (2-11); Neutrophils Absolute Auto 2.2 x10*3/uL (2.0-8.3); Neutrophils Percent Auto 40.5 % (45-73); Platelet Count 104 X10*3/uL (160-400); Red Blood Count 3.14 X10*6/uL (4.60-5.80); Red Cell Distribution Width 14.4 % (11.0-16.0); White Blood Count 5.5 X10*3/uL (4.8-10.8)
[2023-11-05 00:29] LABS: Appearance Urine Clear; Color Urine Yellow; Glucose Urine UA Negative (Negative); Leukocyte Esterase Urine Negative (Negative); Nitrite Urine Negative (Negative); Urine Blood Negative (Negative); Urine Ketones Negative (Negative); Urine Protein Negative (Neg-Trace)
[2023-11-05 00:49] LABS: Alanine Aminotransferase 45 U/L (0-40); Albumin Level 4.9 g/dL (3.5-5.0); Alkaline Phosphatase 83 U/L (39-117); Anion Gap 14 (12-20); Aspartate Amino Transferase 76 U/L (5-37); Bilirubin Total 0.4 mg/dL (0.0-1.0); Blood Urea Nitrogen 13 mg/dL (9-16); Calcium 9.9 mg/dL (8.4-10.2); Carbon Dioxide 29 mmol/L (22-29); Chloride 105 mmol/L (96-108); Creatinine Clr Calc Pharmacy 104.3; Estimated Glomerular Filt Rate > 60; Ethanol 409 mg/dL; Glucose Random 91 mg/dL (60-115); Potassium 3.8 mmol/L (3.3-5.1); Sodium 144 mmol/L (135-145); Total Protein 8.8 g/dL (6.5-8.0)
[2023-11-05 00:58] LABS: COVID-19 Test Negative (Negative); IDNOW Serial# 58CA691E
[2023-11-05] MEDS: LORazepam 1 MG TABLET 2 MG PO ×2 (01:02→10:21)
[2023-11-05 01:06] LABS: Amphetamine Screen Urine Not Detected (Not Detect); Barbiturates, Urine Not Detected (Not Detect); Benzodiazepines Screen Urine Not Detected (Not Detect); Cannabinoid Screen Urine POSITIVE (Not Detect); Cocaine Screen Urine Not Detected (Not Detect); Fentanyl, urine Not Detected (Not Detect); Opiate Screen Urine Not Detected (Not Detect); Phencyclidine Screen Urine Not Detected (Not Detect)
[2023-11-05] MEDS: Albuterol Sulfate 90 MCG 8 GM INHALER 2 PUFF INHALE ×2 (02:44→08:44)
[2023-11-05 06:00] VITALS: BP 104/69; PULSE 79; RESP 16; TEMP 36.3; O2SAT 100
--- NOTE | 2023-11-05 06:00 | PC.NURSE ---
PT neal found on the road. PT called EMS with reports of SI/HI. PT reports he is getting kicked out of his home in a week and has had an increase in anxiety as of late. PT reports drinking 1 pint of vodka prior to calling ems. He is a daily drinker-1 pint. On arrival pt hitting thompson with fist and cursing to himself, but easily redirectable. Pt changed over and belongings secured by security and placed in locker. Labs drawn, urine sample obtained, orders submitted. Plan of care ongoing
--- NOTE | 2023-11-05 07:57 | PC.NURSE ---
Report taken from Mellissa CARRENO, assumed care of pt at 0700. Pt resting on bed eyes closed skin pwd respirations even unlabored, VSS. CIWA 0. Breakfast tray provided at bedside for pt, awaiting Care Team eval. Safety maintained in pod.
--- NOTE | 2023-11-05 09:27 | PC.NURSE ---
Pt medicated per MAR, offers no complaints, CIWA score 1. Awaiting Care Team eval, remains on continuous video monitoring in pod, safety maintained.
--- NOTE | 2023-11-05 10:09 | PC.NURSE ---
Care Team to bedside for eval. Plan for recovery consult and probable detox placement. Pt A&Ox3 now reporting nausea no vomiting, no diaphoresis noted, no tremors at rest, denies pain, denies AH/VH. MD notified.
[2023-11-05 10:20] VITALS: BP 114/78; PULSE 92; RESP 16; TEMP 36.8; O2SAT 97
[2023-11-05] MEDS: Ondansetron ODT 4 MG TAB.RAPDIS TRANSLINGU (10:21)
--- NOTE | 2023-11-05 10:22 | PC.NURSE ---
Pt vomited x 1. Medicated per MAR. VSS, will continue to monitor, safety maintained in BH pod, awaiting recovery team consult.
--- NOTE | 2023-11-05 10:57 | PC.NURSE ---
Recovery at bedside- plan for dc home. Report given to Jahaira CARRENO, pt exits my care at this time.
--- NOTE | 2023-11-05 11:04 | PC.NURSE ---
Report given to Jahaira CARRENO, pt exits my care at this time.
--- NOTE | 2023-11-05 11:14 | MHC.RECOVRN ---
Met with pt in BH3 after pt cleared by CARE Team and expressed interest in ATS. Pt had called EMS, found on road, endorsing si/hi, reporting getting kicked out in one week and having anxiety. Pt laying in bed, awake, alert, engages in conversation, anxious. Pt reports alcohol use, 1 pint 100 proof vodka daily, x a few months. Pt reports having been to treatment 3-4 months ago, remaining abstinent for 3 weeks after discharge, and then returning to use. Pt reports he is being kicked out of his home on November 13 which is causing a lot of anxiety and stress. Discussed AUD treatment options, pt is interested in ATS, however, needs to gather belongings from his home prior to going to treatment. Educated pt on ATS, CSS, TSS level of care, pt would like to continue with treatment after completing ATS and eventually be in a sober house. Pt provided with list of ATS facilities, encouraged pt to walk in to [facility] as soon as possible. Pt agreeable. Pt denies other questions or concerns for t/w. CARE Team and provider aware pt would like to dc home with plan to follow up with ATS outpatient.
--- NOTE | 2023-11-05 12:06 | PC.NURSE ---
Per CARE Team: okay to D/c to [facility]. notified.
== END 2023-11-05 12:33 ==
PROVIDERS: Emergency Medicine; Emergency Provider Emergency Medicine Emergency Medical Services; PCP Physician Assistant
DX: F10.10 Alcohol abuse, uncomplicated (principal); Y90.8 Blood alcohol level of 240 mg/100 ml or more; R45.851 Suicidal ideations; F41.9 Anxiety disorder, unspecified; Z11.52 Encounter for screening for COVID-19; Z72.89 Other problems related to lifestyle; Z59.811 Housing instability, housed, with risk of homelessness; F17.210 Nicotine dependence, cigarettes, uncomplicated; Z79.899 Other long term (current) drug therapy
CPT/HCPCS: 80053; 80307; 81003; 85025; 87635; 99285; S9485

== ENCOUNTER 2024-01-27 23:57 | Emergency (ER) | payer MEDICAID, SELFPAY ==
[2024-01-28 00:07] VITALS: BP 121/77; PULSE 91; RESP 17; TEMP 37.3; O2SAT 94; BMI 27.1
[2024-01-28 00:15] VITALS: BP 121/77; PULSE 96; RESP 17; TEMP 37.3; O2SAT 94
--- NOTE | 2024-01-28 00:20 | ED_ITS ---
HPI - Psych General Chief Complaint: Psychiatric Symptoms Stated Complaint: SI Time Seen by Provider: 01/28/24 00:09 Source: patient, EMS and RN notes reviewed Mode of arrival: EMS Limitations: altered mental status History of Present Illness HPI Narrative: Patient is a 43-year-old male with history of alcohol abuse, depression, neuropathy, GERD presenting to the Emergency Department on a section 12 for suicidal statements prior to arrival. Patient admits to drinking a pt of alcohol and eating a handful of THC edibles earlier today. He made statements that he was going to jump off a balcony. He states that he got into an argument with a friend earlier today. He denies any physical complaints. States that he is not currently feeling suicidal and is also not interested in any detox. MD complaint: suicidal ideation, feels depressed, substance abuse and alcohol abuse Onset (ago): minute(s) Context: recent alcohol abuse Associated psychiatric symptoms: depression and suicidal ideation Associated symptoms: denies other symptoms Treatments prior to arrival: placed on mental health hold If self harm: admits thoughts of self harm Related Data Home Medications ?Medication ?Instructions ?Recorded ?Confirmed naltrexone 50 mg tablet 50 mg PO DAILY 12/31/22 12/31/22 pyridoxine (vitamin B6) 50 mg 50 mg PO DAILY 12/31/22 12/31/22 tablet thiamine HCl (vitamin B1) 100 mg 100 mg PO DAILY 12/31/22 12/31/22 tablet albuterol sulfate 90 mcg/actuation 2 puff inhalation DAILY 11/05/23 11/05/23 aerosol inhaler (Ventolin HFA) Previous Rx's ?Medication ?Instructions ?Recorded amoxicillin 500 mg capsule 1,000 mg (2 x 500 mg) PO Q12H 7 10/07/23 days #28 caps azithromycin 250 mg tablet 250 mg PO DAILY 4 days #4 tabs 10/07/23 Allergies Allergy/AdvReac Type Severity Reaction Status Date / Time No Known Allergies Allergy Verified 01/28/24 00:17 Review of Systems 2 Review of Systems: As per HPI. Yes all other systems are reviewed and are negative Constitutional: Constitutional: Reports as per HPI [facility] Past Medical History Medical History Depression ETOH abuse Neuropathy GERD (gastroesophageal reflux disease) Social History Social History Household Members: Other Household Members Other:: mother Housing: Apartment Do you presently have visiting nurse or other home services: No Alcohol intake: current Alcohol intake frequency: 3 or more drinks per day Alcohol type: hard liquor Comment: 1:1 SITTER Patient Tobacco Use Status: Current everyday Tobacco user Tobacco use type: Cigarette Cigarette Packs Per Day: 0.5 Cigarettes Per Day: 10.0 Years Smoked: 25 Second Hand Smoke Exposure: Yes Substance Use Type: Marijuana Do you have a plan to hurt others: No Plan service: No Current occupational status: unemployed Sexual orientation: Straight/Heterosexual Physical Exam 2 Vital Signs: Vital Signs: Last Vital Signs Temp 99.1 F 01/28/24 00:15 Pulse 96 01/28/24 00:15 Resp 17 01/28/24 00:15 BP 121/77 01/28/24 00:15 Pulse Ox 94 01/28/24 00:15 O2 Del Method Room Air 01/28/24 00:15 BMI result Body Mass Index 27.1 Vital signs have been reviewed and appear to be correct. Blood pressure normal. Heart rate normal. Respiratory rate normal. Temperature normal. Oxygen saturation normal. Const: General: cooperative, healthy appearing and no acute distress O rientation/consciousness: oriented to person, oriented to place, oriented to time and patient oriented x3 Limitations: no limitations HEENT: Head: Yes normocephalic and Yes atraumatic Ears: external ears normal General nose exam: Normal external nose present Face and sinus: Yes face symmetric Mouth: oropharynx normal and moist mucous membranes Throat: Yes uvula midline Eyes: Pupils: Equal, round and reactive pupils present Neck: Neck: Yes normal visual inspection and Yes supple Resp: Effort & Inspection: normal respiratory effort and able to speak in complete sentences Auscultation: clear to auscultation bilaterally Cardio: Rate: regular rate Rhythm: regular rhythm Heart sounds: S1 normal heart sound present and S2 normal heart sound present GI: Palpation (GI): Soft to palpation and nontender Auscultation: n ormoactive bowel sounds : General: Yes no CVA tenderness Back/Spine/Pelvis: Back: no CVA tenderness Skin: General skin exam: elasticity normal and turgor normal Neuro: General: oriented to person, oriented to place, oriented to time, patient oriented x3, moves all extremities, no focal motor deficits and CN's II- XI intact bilaterally Cranial nerves: Yes Equal, round and reactive pupils present Cognition (Neuro): normal cognition Extrem: General: Yes full ROM, Yes no pedal edema and Yes no calf tenderness Psych: Appearance: grossly normal Mental Status: mental status grossly normal Speech and movement: Normal speech and movement present Affect: n ormal affect Attitude: cooperative Thought process: Normal thought process present Thought content: Suicidality present, no homicidality, no hallucinations and Depressive thoughts present Insight: Limited insight present (Psych) Judgement: Limited judgement present (Psych) Medical Decision Making Medical Decision Making MDM Narrative: Patient is a 43-year-old male with history of alcohol abuse, depression, neuropathy, GERD presenting to the Emergency Department on a section 12 for suicidal statements prior to arrival. On exam patient is awake, A+Ox3, VS WNL, afebrile, normal neurological exam without focal deficits, physical exam findings as above. Given reported symptoms and physical exam findings, initial differential includes suicidal ideation, depression, anxiety. Plan: Labs, UA, COVID, urine drug screen, EtOH to clear medically then care team evaluation Labs unremarkable. ETOH 370. Urine drug screen positive for THC. Will place patient on physician observation at this time and he will be evaluated by CARE team when clinically sober. Differential Diagnosis Differential Diagnoses: The differential diagnosis associated with the presentation includes As per [facility]. Admission/Observation Consideration of admission/observation: Escalation of care including admission/observation considered Consult Healthcare Provider Management of the patient was discussed with: Behavioral Health Provider Lab Data [facility] Lab Attestation statement: I reviewed the patient's lab results. As per MDM 01/28/24 00:37 01/28/24 00:37 Labs: Lab Results 01/28/24 Range/Units 00:37 WBC 5.8 (4.8-10.8) X10*3/uL RBC 3.40 L (4.60-5.80) X10*6/uL Hgb 11.1 L (14.0-18.0) g/dl Hct 32.4 L (42.0-52.0) % MCV 95.3 (80.0-98.0) fL MCH 32.6 (27.0-33.0) pg MCHC 34.3 (31.0-36.0) g/dl RDW 14.5 (11.0-16.0) % Plt Count 113 L (160-400) X10*3/uL MPV 8.9 L (9.4-12.4) fL Immature Gran % (Auto) 0.3 (0.0-0.4) % Neut % (Auto) 51.7 (45-73) % Lymph % (Auto) 37.6 (20-40) % [place] % (Auto) 8.0 (2-11) % Eos % (Auto) 1.9 (0-4) % Baso % (Auto) 0.5 (0-2) % Lymph # (Auto) 2.2 (1.2-4.9) X10*3/uL [place] # (Auto) 0.5 (0.1-1.2) X10*3/uL Eos # (Auto) 0.1 (0.0-0.4) X10*3/uL Baso # (Auto) 0.0 (0.0-0.2) X10*3/uL Abs Immat Gran (auto) 0.02 (0.00-0.03) X10*3/uL Absolute Neuts (auto) 3.0 (2.0-8.3) x10*3/uL Absolute Nucleated RBC 0.000 (0.0-0.012) X10*3/uL Nucleated RBC % (auto) 0.0 (0.0-0.2) /100WBC Sodium 145 (135-145) mmol/L Potassium 3.3 (3.3-5.1) mmol/L Chloride 107 (96-108) mmol/L Carbon Dioxide 26 (22-29) mmol/L Anion Gap 15 (12-20) BUN 9 (9-16) mg/dL Creatinine 0.77 (0.5-1.4) mg/dL Estim Creat Clear Calc 117.2 Estimated GFR > 60 Random Glucose 94 (60-115) mg/dL Calcium 9.1 D (8.4-10.2) mg/dL Total Bilirubin 0.2 (0.0-1.0) mg/dL AST 48 H (5-37) U/L ALT 18 (0-40) U/L Alkaline Phosphatase 81 (39-117) U/L Total Protein 7.6 (6.5-8.0) g/dL Albumin 4.2 (3.5-5.0) g/dL Urine Color Yellow Urine Appearance Clear Urine pH 7.0 (5.0-9.0) Ur Specific [place] 1.010 (1.005-1.025) Urine Protein Negative (Neg-Trace) mg/dL Urine Glucose (UA) Negative (Negative) mg/dL Urine Ketones Negative (Negative) mg/dL Urine Blood Negative (Negative) Urine Nitrite Negative (Negative) Ur Leukocyte Esterase Negative (Negative) Salicylates < 5.0 L (15-30) mg/dL Urine Opiates Screen Not Detected (Not Detect) Ur Buprenorphine Scrn Not Detected (Not Detect) ng/mL Ur Oxycodone Screen Not Detected (Not Detect) ng/mL Urine Methadone Screen Not Detected (Not Detect) ng/mL Urine Fentanyl Screen Not Detected (Not Detect) Acetaminophen < 3 (<30) mcg/mL Ur Barbiturates Screen Not Detected (Not Detect) Ur Phencyclidine Scrn Not Detected (Not Detect) Ur Amphetamines Screen Not Detected (Not Detect) U Benzodiazepines Scrn Not Detected (Not Detect) Urine Cocaine Screen Not Detected (Not Detect) U Marijuana (THC) Screen POSITIVE H (Not Detect) Ethyl Alcohol 370 H* mg/dL External Record Review External record reviewed: Inpatient record, Office record and Outpatient record Discharge Plan Discharge Clinical Impression: Suicidal ideation Patient Disposition: Still a Patient Prescriptions: No Action naltrexone 50 mg tablet 50 mg PO DAILY thiamine HCl (vitamin B1) 100 mg tablet 100 mg PO DAILY pyridoxine (vitamin B6) 50 mg tablet 50 mg PO DAILY amoxicillin 500 mg capsule 1,000 mg PO Q12H 7 Days Qty: 28 0RF azithromycin 250 mg tablet 250 mg PO DAILY 4 Days Qty: 4 0RF Rx Instructions: start on day 2 of therapy albuterol sulfate [Ventolin HFA] 90 mcg/actuation HFA aerosol inhaler 2 puff inhalation DAILY Print Language: Albanian
[2024-01-28 00:50] LABS: Basophils Percent Auto 0.5 % (0-2); Eosinophils Absolute Auto 0.1 X10*3/uL (0.0-0.4); Eosinophils Percent Auto 1.9 % (0-4); Hematocrit 32.4 % (42.0-52.0); Hemoglobin 11.1 g/dl (14.0-18.0); Imm Gran Abs Auto 0.02 X10*3/uL (0.00-0.03); Imm Gran Pct Auto 0.3 % (0.0-0.4); Lymphocytes Absolute Auto 2.2 X10*3/uL (1.2-4.9); Lymphocytes Percent Auto 37.6 % (20-40); MANUAL DIFF FLAG NO; Mean Corpuscular HGB Conc 34.3 g/dl (31.0-36.0); Mean Corpuscular Hemoglobin 32.6 pg (27.0-33.0); Mean Corpuscular Volume 95.3 fL (80.0-98.0); Mean Platelet Volume 8.9 fL (9.4-12.4); Monocytes Absolute Auto 0.5 X10*3/uL (0.1-1.2); Neutrophils Percent Auto 51.7 % (45-73); Platelet Count 113 X10*3/uL (160-400); Red Cell Distribution Width 14.5 % (11.0-16.0); White Blood Count 5.8 X10*3/uL (4.8-10.8)
[2024-01-28 00:51] LABS: Appearance Urine Clear; Color Urine Yellow; Glucose Urine UA Negative (Negative); Leukocyte Esterase Urine Negative (Negative); Nitrite Urine Negative (Negative); Urine Blood Negative (Negative); Urine Ketones Negative (Negative); Urine Protein Negative (Neg-Trace)
[2024-01-28 01:00] LABS: Amphetamine Screen Urine Not Detected (Not Detect); Barbiturates, Urine Not Detected (Not Detect); Benzodiazepines Screen Urine Not Detected (Not Detect); Buprenorphine Scr Not Detected (Not Detect); Cannabinoid Screen Urine POSITIVE (Not Detect); Cocaine Screen Urine Not Detected (Not Detect); Fentanyl, urine Not Detected (Not Detect); Methadone Screen, Urine Not Detected (Not Detect); Opiate Screen Urine Not Detected (Not Detect); Oxycodone Screen Urine Not Detected (Not Detect); Phencyclidine Screen Urine Not Detected (Not Detect)
[2024-01-28 01:05] LABS: Alanine Aminotransferase 18 U/L (0-40); Albumin Level 4.2 g/dL (3.5-5.0); Alkaline Phosphatase 81 U/L (39-117); Anion Gap 15 (12-20); Aspartate Amino Transferase 48 U/L (5-37); Bilirubin Total 0.2 mg/dL (0.0-1.0); Blood Urea Nitrogen 9 mg/dL (9-16); Calcium 9.1 mg/dL (8.4-10.2); Carbon Dioxide 26 mmol/L (22-29); Chloride 107 mmol/L (96-108); Creatinine Clr Calc Pharmacy 117.2; Estimated Glomerular Filt Rate > 60; Ethanol 370 mg/dL; Glucose Random 94 mg/dL (60-115); Potassium 3.3 mmol/L (3.3-5.1); Sodium 145 mmol/L (135-145); Total Protein 7.6 g/dL (6.5-8.0)
[2024-01-28 01:06] LABS: Acetaminophen LAB < 3 mcg/mL (<30); Salicylate < 5.0 mg/dL (15-30)
[2024-01-28 01:11] LABS: COVID-19 Test Negative (Negative); IDNOW Serial# 08D9AD1C
[2024-01-28 06:29] VITALS: BP 105/70; PULSE 65; RESP 16; TEMP 36.3; O2SAT 98
[2024-01-28 07:30] VITALS: BP 95/70; PULSE 80; RESP 16; TEMP 36.8; O2SAT 98
--- NOTE | 2024-01-28 07:30 | PC.NURSE ---
Addendum entered by Mandy Gonzalez 01/28/24 08:53: PT SPEAKS IN FULL SENTENCES. PT AWARE OF PLAN OF CARE. Original Note: PT IS A/O X 4. C/O NASAL CONGESTION/SLIGHT SOB DUE TO SINUS/ALLERGY. ALCOHOL SMELL IS EVIDENT ON PT'S BREATH. PT CIWA AT THIS TIME IS ZERO. PT DENIES ANY SI/HI/HALLUCINATIONS. WILL CONTINUE TO MONITOR.
--- NOTE | 2024-01-28 10:11 | PHA.MEDREC ---
Pharmacy Consult ? Medication Reconciliation Pharmacy has completed the medication reconciliation. Reviewed med rec done by nursing
[2024-01-28 10:24] VITALS: BP 131/92; PULSE 88; RESP 16; TEMP 36.9; O2SAT 96
[2024-01-28] MEDS: Sertraline HCL 100 MG TABLET PO (11:27)
[2024-01-28] MEDS: Fluticasone Propionate Nasal 16 GM SPRAY 1 SPRAY NOSTRIL-B (11:28)
[2024-01-28] MEDS: cloNIDine HCL 0.1 MG TABLET PO (11:28)
[2024-01-28 11:37] VITALS: BP 131/92; PULSE 88; RESP 16; TEMP 36.9; O2SAT 96
--- NOTE | 2024-07-15 11:48 | PM.PSYDC ---
DS: Providers Provider Primary care physician: Lynette Physician Consults: 01/28/24 00:09 Consult to Care Team Stat Comment: Reason for consultation: SI DS: Medications Discharge Medications Home Medications: Home Medications ?Medication ?Instructions ?Recorded ?Confirmed albuterol sulfate 90 mcg/actuation 2 puff inhalation Q4-6H PRN 01/28/24 01/28/24 aerosol inhaler (Ventolin HFA) Shortness Of Breath Or Wheezing clonidine HCl 0.1 mg tablet 0.1 mg PO BID 01/28/24 01/28/24 hydroxyzine pamoate 50 mg capsule 50 mg PO DAILY PRN Anxiety 01/28/24 01/28/24 sertraline 100 mg tablet 100 mg PO DAILY 01/28/24 01/28/24 DS: Summary Time Spent with Patient Time attestation: Total time managing care of this patient today ____ minutes. Discharge Plan Discharge Clinical Impression: Alcohol use Patient Disposition: Home, Self-Care Instructions: Alcohol Use Disorder (ED) Additional Instructions: return for worsening symptoms or concerns cut down on your alcohol use Prescriptions: No Action clonidine HCl 0.1 mg tablet 0.1 mg PO BID sertraline 100 mg tablet 100 mg PO DAILY hydroxyzine pamoate 50 mg capsule 50 mg PO DAILY PRN (Reason: Anxiety) albuterol sulfate [Ventolin HFA] 90 mcg/actuation HFA aerosol inhaler 2 puff inhalation Q4-6H PRN (Reason: Shortness Of Breath Or Wheezing) Interventions: [place]-Suicide Risk Severity Scale Last Done: 01/28/24 02:44 ED Discharge Assessment Last Done: 01/28/24 11:37 Discharge Date/Time: 01/28/24 11:49 Print Language: Congolese
== END 2024-01-28 11:49 | disposition home or self-care (01) ==
PROVIDERS: Registered Nurse Emergency; Emergency Provider Student in an Organized Health Care Education/Training Program
DX: R45.851 Suicidal ideations (principal); F10.10 Alcohol abuse, uncomplicated; Y90.8 Blood alcohol level of 240 mg/100 ml or more; Z11.52 Encounter for screening for COVID-19
CPT/HCPCS: 80053; 80143; 80179; 80307; 81003; 85025; 87635; 99284; S9485

== ENCOUNTER 2024-08-04 20:29 | Emergency (ER) | payer MEDICAID, SELFPAY ==
--- NOTE | ~2024-08-04 | XR_ITS ---
EXAMINATION: XR CHEST CLINICAL INFORMATION: Chest pain COMPARISON: 10/07/2023 TECHNIQUE: Frontal view of the chest was obtained. FINDINGS: Normal cardiomediastinal silhouette. Lungs appear mildly hyperexpanded. No dense consolidation, pleural effusion or pneumothorax. XR/XR chest 1V IMPRESSION: No acute cardiopulmonary process. Electronically signed by: Clay Somers MD 08/04/2024 10:31 PM EDT RP
[2024-08-04 20:38] VITALS: BP 105/57; BP 118/64; PULSE 88; PULSE 94; RESP 20; TEMP 37; O2SAT 94; O2SAT 98; BMI 22.8
--- NOTE | 2024-08-04 20:39 | ECG_ITS ---
Test Reason : CHEST PAIN Blood Pressure : / mmHG Vent. Rate : 076 BPM Atrial Rate : 076 BPM P-R Int : 150 ms QRS Dur : 092 ms QT Int : 388 ms P-R-T Axes : 079 079 049 degrees QTc Int : 436 ms Normal sinus rhythm Nonspecific ST abnormality Abnormal ECG When compared with ECG of 07-OCT-2023 12:15, No significant change was found Referred By: Viral Olmos Electronically Signed By:ANGELA COSTA
--- NOTE | 2024-08-04 20:40 | ED_ITS ---
HPI - General Adult General Chief complaint: General Medical Stated complaint: flu like symptoms, l sided chest pain Time Seen by Provider: 08/05/24 03:54 Source: patient and EMS Mode of arrival: EMS Limitations: no limitations History of Present Illness ED Provider: Dr. Rosenbaum HPI narrative: patient arrives via EMS for cough and shortness of breath. he is an active smoker and has been continually wheezing Onset (ago): week(s) Related Data Home Medications ?Medication ?Instructions ?Recorded ?Confirmed albuterol sulfate 90 mcg/actuation 2 puff inhalation Q4-6H PRN 01/28/24 01/28/24 aerosol inhaler (Ventolin HFA) Shortness Of Breath Or Wheezing clonidine HCl 0.1 mg tablet 0.1 mg PO BID 01/28/24 01/28/24 hydroxyzine pamoate 50 mg capsule 50 mg PO DAILY PRN Anxiety 01/28/24 01/28/24 sertraline 100 mg tablet 100 mg PO DAILY 01/28/24 01/28/24 Previous Rx's ?Medication ?Instructions ?Recorded albuterol sulfate 90 mcg/actuation 2 puff inhalation Q4-6H PRN 08/05/24 aerosol inhaler (Proventil HFA) shortness of breath or wheezing #8.5 grams prednisone 20 mg tablet 60 mg (3 x 20 mg) PO DAILY #12 tabs 08/05/24 Allergies Allergy/AdvReac Type Severity Reaction Status Date / Time No Known Allergies Allergy Verified 08/04/24 20:41 Review of Systems 2 Review of Systems: Yes all other systems are reviewed and are negative Neurologic: Denies Sensory deficit (Neuro) [facility] Past Medical History Medical History Depression ETOH abuse Neuropathy GERD (gastroesophageal reflux disease) Social History Social History Household Members: Other Household Members Other:: mother Housing: Apartment Do you presently have visiting nurse or other home services: No Alcohol intake: current Alcohol intake frequency: 3 or more drinks per day Alcohol type: hard liquor Comment: 1:1 SITTER Patient Tobacco Use Status: Current everyday Tobacco user Tobacco use type: Cigarette Cigarette Packs Per Day: 0.5 Cigarettes Per Day: 10.0 Years Smoked: 25 Smoked in Last 30 Days: Yes Second Hand Smoke Exposure: Yes Use of substances other than those prescribed or required for medical reasons: Yes Substance Use Type: Marijuana Substance Use Frequency: Chronic Longstanding Advance Directives: No Advance Directives Information Provided: No Do you have a plan to hurt others: No Plan service: No Current occupational status: unemployed Sexual orientation: Straight/Heterosexual Physical Exam ED Vital Signs: Vital Signs - 24 hr 08/04/24 20:38 08/05/24 02:59 08/05/24 04:12 Temperature 98.6 F 98.0 F Pulse Rate 94 71 71 Respiratory Rate 20 18 18 Blood Pressure 105/57 L 125/68 Pulse Oximetry 94 94 Oxygen Delivery Method Room Air Room Air 08/05/24 07:47 Temperature 97.9 F Pulse Rate 83 Respiratory Rate 16 Blood Pressure 137/77 Pulse Oximetry 97 Oxygen Delivery Method Room Air BMI result Body Mass Index 22.8 Const Other: cachectin, short of breath, unkept Orientation/consciousness: oriented to person and patient oriented x3 Limitations: no limitations HENMT Head: Yes normal to inspection Ears: external ears normal General nose exam: Normal external nose present Mouth: Normal oral and palatal mucosa present and oropharynx normal Throat: Yes posterior oropharynx normal Eyes General: appearance normal, both eyes and all related structures Neck Neck: Yes normal visual inspection Chest Chest palpation & inspection: normal inspection of the chest Resp Other: diffuse wheezing and rhonchi Cardio Jugular venous distension: no JVD Rate: regular rate Rhythm: regular rhythm Heart sounds: S1 normal heart sound present and S2 normal heart sound present GI Inspection: Yes normal to inspection Palpation (GI): Soft to palpation, nontender and No hepatosplenomegaly present Auscultation: normal bowel sounds General: Yes no CVA tenderness Back/Spine/Pelvis Back: no CVA tenderness Skin General skin exam: no rashes or lesions noted Neuro General: oriented to person and patient oriented x3 Cranial nerves: Yes CN's II-XII intact bilaterally Motor exam (neuro): 5/5 motor strength present throughout Sensory Exam: No Sensory deficit (Neuro) Extrem General: Yes normal to inspection Psych Appearance: grossly normal Course Course Course Narrative: RME: 43-year-old male presents to ED with URI symptoms coughing shortness of breath chills not having left-sided chest pain going down left arm. Patient brought to triage for EKG and labs. ED provider will do full evaluation Reevaluation(s) Reevaluation #1: improved after treatment and steroids will dc home Time: 07:29 Medications Administered Discontinued Medications Generic Name Dose Route Start Last Admin Trade Name Helen PRN Reason Stop Dose Admin Albuterol/Ipratropium 3 ml 08/05/24 04:00 08/05/24 04:08 Albuterol/Iprat 2.5/0.5mg 3 Ml Ampul.Neb INHALE 08/05/24 04:01 3 ml ONCE ONE Administration Prednisone 60 mg 08/05/24 04:00 08/05/24 04:13 Prednisone 20 Mg Tablet PO 08/05/24 04:01 60 mg ONCE ONE Administration Medical Decision Making Differential Diagnosis Differential Diagnoses: The differential diagnosis associated with the presentation includes (COPD exacerbation, pneumonia, covid, flu, rsv) Admission/Observation Consideration of admission/observation: Escalation of care including admission/observation considered (upon arrival admission was considered) Lab Data 08/04/24 20:50 08/04/24 20:50 Labs: Lab Results 08/04/24 Range/Units 20:50 WBC 6.6 (4.8-10.8) X10*3/uL RBC 2.90 L (4.60-5.80) X10*6/uL Hgb 11.0 L (14.0-18.0) g/dl Hct 31.4 L (42.0-52.0) % MCV 108.3 H (80.0-98.0) fL MCH 37.9 H (27.0-33.0) pg MCHC 35.0 (31.0-36.0) g/dl RDW 13.3 (11.0-16.0) % Plt Count 65 L D (160-400) X10*3/uL MPV 11.0 (9.4-12.4) fL Immature Gran % (Auto) 0.3 (0.0-0.4) % Neut % (Auto) 62.0 (45-73) % Lymph % (Auto) 22.4 (20-40) % Harvey % (Auto) 13.3 H (2-11) % Eos % (Auto) 1.1 (0-4) % Baso % (Auto) 0.9 (0-2) % Lymph # (Auto) 1.5 (1.2-4.9) X10*3/uL Harvey # (Auto) 0.9 (0.1-1.2) X10*3/uL Eos # (Auto) 0.1 (0.0-0.4) X10*3/uL Baso # (Auto) 0.1 (0.0-0.2) X10*3/uL Abs Immat Gran (auto) 0.02 (0.00-0.03) X10*3/uL Absolute Neuts (auto) 4.1 (2.0-8.3) x10*3/uL Absolute Nucleated RBC 0.000 (0.0-0.012) X10*3/uL Nucleated RBC % (auto) 0.0 (0.0-0.2) /100WBC Smear Tech's Comments VERIFIED PT 10.8 L (10.9-12.4) SEC INR 0.9 (0.9-1.1) APTT 37.1 H (26.0-36.8) SEC Sodium 141 (135-145) mmol/L Potassium 3.1 L (3.3-5.1) mmol/L Chloride 101 (96-108) mmol/L Carbon Dioxide 24 (22-29) mmol/L Anion Gap 19 (12-20) BUN 11 (9-16) mg/dL Creatinine 0.80 (0.5-1.4) mg/dL Estim Creat Clear Calc 112.2 Estimated GFR > 60 Random Glucose 79 (60-115) mg/dL Calcium 9.2 (8.4-10.2) mg/dL Total Bilirubin 0.7 (0.0-1.0) mg/dL AST 105 H (5-37) U/L ALT 42 H (0-40) U/L Alkaline Phosphatase 83 (39-117) U/L Troponin I High Sens 3.6 (<3.5-35.0) ng/L B-Natriuretic Peptide < 10 (<100) pg/mL Total Protein 8.3 H (6.5-8.0) g/dL Albumin 4.5 (3.5-5.0) g/dL Influenza Type A (PCR) NEGATIVE (Negative) Influenza Type B (PCR) NEGATIVE (Negative) RSV RNA Qual (PCR) NEGATIVE (Negative) SARS-CoV-2 RNA (RT-PCR) NEGATIVE (Negative) S. pyogenes GrpA ANDREW Negative (Negative) Independent Interpretation I performed an independent interpretation of an: EKG (sinus 75, no st or twave changes) and Plain X-Ray (CXR: chronic changes no infiltrate) Independent Historian Clinical information obtained from an independent historian. History obtained from or confirmed by: EMS Prescription Management I considered prescription management with: Antibiotic (no pneumonia on xray) Chronic Conditions Patient?s care impacted by: Other (Copd) Social Determinants Patient?s care significantly limited by Social Determinants of Health including: Low income Discharge Plan Discharge Clinical Impression: COPD exacerbation Patient Disposition: Home, Self-Care Instructions: COPD (Chronic Obstructive Pulmonary Disease) (ED) Prescriptions: New prednisone 20 mg tablet 60 mg PO DAILY Qty: 12 0RF albuterol sulfate [Proventil HFA] 90 mcg/actuation HFA aerosol inhaler 2 puff inhalation Q4-6H PRN (Reason: shortness of breath or wheezing) Qty: 8.5 0RF No Action clonidine HCl 0.1 mg tablet 0.1 mg PO BID sertraline 100 mg tablet 100 mg PO DAILY hydroxyzine pamoate 50 mg capsule 50 mg PO DAILY PRN (Reason: Anxiety) albuterol sulfate [Ventolin HFA] 90 mcg/actuation HFA aerosol inhaler 2 puff inhalation Q4-6H PRN (Reason: Shortness Of Breath Or Wheezing) Referrals: Emily Perez PA [Primary Care Provider] - 3 days Interventions: ED Discharge Assessment Last Done: 08/05/24 07:47 Discharge Date/Time: 08/05/24 07:48 Print Language: Bulgarian
[2024-08-04 21:02] LABS: Hematocrit 31.4 % (42.0-52.0); Imm Gran Abs Auto 0.02 X10*3/uL (0.00-0.03); Imm Gran Pct Auto 0.3 % (0.0-0.4); MANUAL DIFF FLAG SCAN; Mean Corpuscular Hemoglobin 37.9 pg (27.0-33.0); Mean Corpuscular Volume 108.3 fL (80.0-98.0); Monocytes Absolute Auto 0.9 X10*3/uL (0.1-1.2); PLT CLUMP 1; SCAN SMEAR FLAG 1
[2024-08-04 21:03] LABS: Basophils Absolute Auto 0.1 X10*3/uL (0.0-0.2); Basophils Percent Auto 0.9 % (0-2); Eosinophils Absolute Auto 0.1 X10*3/uL (0.0-0.4); Eosinophils Percent Auto 1.1 % (0-4); Lymphocytes Absolute Auto 1.5 X10*3/uL (1.2-4.9); Lymphocytes Percent Auto 22.4 % (20-40); Monocytes Percent Auto 13.3 % (2-11); Neutrophils Absolute Auto 4.1 x10*3/uL (2.0-8.3); Red Cell Distribution Width 13.3 % (11.0-16.0)
[2024-08-04 21:14] LABS: INTERNATIONAL NORM RATIO 0.9 (0.9-1.1); Prothrombin Time 10.8 SEC (10.9-12.4)
[2024-08-04 21:17] LABS: Partial Thromboplastin Time 37.1 SEC (26.0-36.8)
[2024-08-04 21:19] LABS: Alanine Aminotransferase 42 U/L (0-40); Albumin Level 4.5 g/dL (3.5-5.0); Alkaline Phosphatase 83 U/L (39-117); Anion Gap 19 (12-20); Aspartate Amino Transferase 105 U/L (5-37); Bilirubin Total 0.7 mg/dL (0.0-1.0); Blood Urea Nitrogen 11 mg/dL (9-16); Calcium 9.2 mg/dL (8.4-10.2); Carbon Dioxide 24 mmol/L (22-29); Chloride 101 mmol/L (96-108); Creatinine Clr Calc Pharmacy 112.2; Estimated Glomerular Filt Rate > 60; Glucose Random 79 mg/dL (60-115); Potassium 3.1 mmol/L (3.3-5.1); Sodium 141 mmol/L (135-145); Total Protein 8.3 g/dL (6.5-8.0)
[2024-08-04 21:25] LABS: B Type Natriuretic Peptide < 10 pg/mL (<100)
[2024-08-04 21:26] LABS: Troponin-I High Sensitivity 3.6 ng/L (<3.5-35.0)
[2024-08-04 21:44] LABS: IDNOW Serial# 6674DD1D; Strep A Nucleic Acid Negative (Negative)
[2024-08-04 21:46] LABS: White Blood Count 6.6 X10*3/uL (4.8-10.8)
[2024-08-04 21:47] LABS: Platelet Count 65 X10*3/uL (160-400)
[2024-08-04 21:57] LABS: Influenza A PCR NEGATIVE (Negative); Influenza B PCR NEGATIVE (Negative); Resp Syncy Virus RNA Qual PCR NEGATIVE (Negative); SARS COV2 PCR INHOUSE NEGATIVE (Negative); SLIDE REVIEW VERIFIED
[2024-08-05 02:59] VITALS: BP 125/68; PULSE 71; RESP 18; TEMP 36.7; O2SAT 94
[2024-08-05] MEDS: Albuterol/Iprat 2.5/0.5MG 3 ML AMPUL.NEB INHALE (04:08)
[2024-08-05 04:12] VITALS: PULSE 71; RESP 18; O2SAT 94
[2024-08-05] MEDS: predniSONE 20 MG TABLET 60 MG PO (04:13)
[2024-08-05 07:47] VITALS: BP 137/77; PULSE 83; RESP 16; TEMP 36.6; O2SAT 97
== END 2024-08-05 07:48 | disposition home or self-care (01) ==
PROVIDERS: Physician Assistant; Emergency Provider Emergency Medicine; PCP Physician Assistant
DX: J44.1 Chronic obstructive pulmonary disease with (acute) exacerbation (principal); R07.9 Chest pain, unspecified; R05.9 Cough, unspecified; R06.02 Shortness of breath; R06.2 Wheezing; F17.200 Nicotine dependence, unspecified, uncomplicated; Z79.899 Other long term (current) drug therapy; Z03.818 Encounter for observation for suspected exposure to other biological agents ruled out
CPT/HCPCS: 0241U; 36415; 71045; 80053; 83880; 84484; 85025; 85610; 85730; 87651; 93005; 94640; 99284; 99285

== ENCOUNTER → 2024-08-04 20:39 | Outpatient (BNV) | payer MEDICAID, SELFPAY | PROVIDERS: Emergency Provider Emergency Medicine; PCP Physician Assistant; Visit Provider Internal Medicine | DX: R07.9 Chest pain, unspecified (principal); R94.31 Abnormal electrocardiogram [ECG] [EKG] | CPT/HCPCS: 93010 ==

== ENCOUNTER 2024-09-08 20:10 | Emergency (ER) | payer MEDICAID, SELFPAY ==
--- NOTE | ~2024-09-08 | XR_ITS ---
EXAMINATION: XR CHEST CLINICAL INFORMATION: Dyspnea COMPARISON: August 04, 2024 TECHNIQUE: 2 views of the chest were obtained. FINDINGS: No significant abnormality is noted involving the heart, lungs, mediastinum, bony thorax or soft tissues. XR/XR chest 2V IMPRESSION: Unremarkable examination. Electronically signed by: Nathaniel Valerio MD 09/09/2024 02:34 AM [facility] [place]
[2024-09-08 20:14] VITALS: BP 125/80; PULSE 101; O2SAT 99
--- NOTE | 2024-09-08 22:23 | PC.NURSE ---
no answer at 2100 in waiting room
[2024-09-08 23:26] VITALS: BP 110/76; PULSE 91; RESP 18; TEMP 36.6; O2SAT 99; BMI 19.3
--- NOTE | 2024-09-08 23:44 | PC.NURSE ---
no answer [phone]
[2024-09-09 00:35] LABS: Influenza A PCR NEGATIVE (Negative); Influenza B PCR NEGATIVE (Negative); Resp Syncy Virus RNA Qual PCR NEGATIVE (Negative); SARS COV2 PCR INHOUSE POSITIVE (Negative)
[2024-09-09] MEDS: guaiFEN/Codeine SF 200/20/10ML 10 ML LIQUID PO (02:18)
[2024-09-09] MEDS: dexAMETHasone 2 MG TABLET 10 MG PO (02:18)
[2024-09-09] MEDS: Albuterol Sulfate 2.5 MG, Albuterol/Iprat 2.5/0.5MG 3 ML 3 ML INHALE (02:29)
[2024-09-09 04:04] VITALS: BP 114/73; PULSE 78; RESP 15; TEMP 36.7; O2SAT 95
--- NOTE | 2024-09-09 04:16 | ED.URI ---
HPI - URI/Sore Throat General Chief Complaint: Upper Respiratory Symptoms Stated Complaint: SOB Covid + Time Seen by Provider: 09/08/24 22:24 Source: patient Mode of arrival: ambulatory Limitations: no limitations History of Present Illness ED Provider: HPI Narrative: Patient's history of COPD/asthma been sick for last 2 weeks diagnose with COVID yesterday at home feel tired and weak using nebulizer treatment without much relief Related Data Home Medications ?Medication ?Instructions ?Recorded ?Confirmed albuterol sulfate 90 mcg/actuation 2 puff inhalation Q4-6H PRN 01/28/24 01/28/24 aerosol inhaler (Ventolin HFA) Shortness Of Breath Or Wheezing clonidine HCl 0.1 mg tablet 0.1 mg PO BID 01/28/24 01/28/24 hydroxyzine pamoate 50 mg capsule 50 mg PO DAILY PRN Anxiety 01/28/24 01/28/24 sertraline 100 mg tablet 100 mg PO DAILY 01/28/24 01/28/24 Previous Rx's ?Medication ?Instructions ?Recorded albuterol sulfate 90 mcg/actuation 2 puff inhalation Q4-6H PRN 08/05/24 aerosol inhaler (Proventil HFA) shortness of breath or wheezing #8.5 grams prednisone 20 mg tablet 60 mg (3 x 20 mg) PO DAILY #12 tabs 08/05/24 Allergies Allergy/AdvReac Type Severity Reaction Status Date / Time No Known Allergies Allergy Verified 09/08/24 23:30 Review of Systems Review of Systems: Yes all other systems are reviewed and are negative PMFSH Past Medical History Medical History Depression ETOH abuse Neuropathy GERD (gastroesophageal reflux disease) Social History Social History Household Members: Other Household Members Other:: mother Housing: Apartment Do you presently have visiting nurse or other home services: No Alcohol intake: current Alcohol intake frequency: 3 or more drinks per day Alcohol type: hard liquor Comment: 1:1 SITTER Patient Tobacco Use Status: Current everyday Tobacco user Tobacco use type: Cigarette Cigarette Packs Per Day: 0.5 Cigarettes Per Day: 10.0 Years Smoked: 25 Second Hand Smoke Exposure: Yes Substance Use Type: Marijuana Advance Directives: No Advance Directives Information Provided: No Do you have a plan to hurt others: No Plan service: No Current occupational status: unemployed Sexual orientation: Straight/Heterosexual Physical Exam Vital Signs: Vital Signs: Last Vital Signs Temp 98.0 F 09/09/24 04:04 Pulse 78 09/09/24 04:04 Resp 15 09/09/24 04:04 BP 114/73 09/09/24 04:04 Pulse Ox 95 09/09/24 04:04 O2 Del Method Room Air 09/09/24 04:04 BMI result Body Mass Index 19.3 Appearance: Alert. Oriented X3. No acute distress. Eyes: PERRLA, No Nystagmus ENT: Pharynx normal. Oral Mucosa moist Neck: Normal inspection. Neck supple. CVS: Normal heart rate and rhythm. Pulses normal. Respiratory: No respiratory distress. Equal air entry bilateral, bilateral wheezing and prolonged expiration Abdomen: Soft and nontender. Bowel sounds are present, no mass palpable, no CVA tenderness Skin: Skin warm and dry. Normal skin color. Normal skin turgor. Extremities: No lower extremity edema. No calf tenderness Neuro: Oriented X 3. No motor deficit. No sensory deficit.No cerebellar signs , cranial nerves II-XII intact Medications Administered Discontinued Medications Generic Name Dose Route Start Last Admin Trade Name Freq PRN Reason Stop Dose Admin Albuterol Sulfate 2.5 mg/ 0 mg 09/09/24 02:04 09/09/24 02:29 Albuterol/Ipratropium 3 ml INHALE 09/09/24 02:05 3.5 dose ONCE ONE Administration Dexamethasone 10 mg 09/09/24 02:04 09/09/24 02:18 Dexamethasone 2 Mg Tablet PO 09/09/24 02:05 10 mg ONCE ONE Administration Guaifenesin/Codeine Phosphate 10 ml 09/09/24 02:05 09/09/24 02:18 Guaifen/Codeine Sf 200/20/10ml 10 Ml Liquid PO 09/09/24 02:06 10 ml ONCE ONE Administration Medical Decision Making Lab Data [facility] Lab Attestation statement: I reviewed the patient's lab results. Labs: Lab Results 09/08/24 Range/Units 23:36 Influenza Type A (PCR) NEGATIVE (Negative) Influenza Type B (PCR) NEGATIVE (Negative) RSV RNA Qual (PCR) NEGATIVE (Negative) SARS-CoV-2 RNA (RT-PCR) POSITIVE A (Negative) Independent Interpretation I performed an independent interpretation of an: Plain X-Ray Interpretation: NAD Discharge Plan Discharge Clinical Impression: Eloped from emergency department Prescriptions: No Action clonidine HCl 0.1 mg tablet 0.1 mg PO BID sertraline 100 mg tablet 100 mg PO DAILY hydroxyzine pamoate 50 mg capsule 50 mg PO DAILY PRN (Reason: Anxiety) albuterol sulfate [Ventolin HFA] 90 mcg/actuation HFA aerosol inhaler 2 puff inhalation Q4-6H PRN (Reason: Shortness Of Breath Or Wheezing) prednisone 20 mg tablet 60 mg PO DAILY Qty: 12 0RF albuterol sulfate [Proventil HFA] 90 mcg/actuation HFA aerosol inhaler 2 puff inhalation Q4-6H PRN (Reason: shortness of breath or wheezing) Qty: 8.5 0RF Print Language: Moldovan
[2024-09-09 04:36] VITALS: BP 114/73; PULSE 78; RESP 15; TEMP 36.7; O2SAT 95
[2024-09-09 04:38] VITALS: O2SAT 100
== END 2024-09-09 04:40 | disposition home or self-care (01) ==
PROVIDERS: Emergency Medicine Emergency Medical Services; Emergency Provider Internal Medicine
DX: U07.1 COVID-19 (principal); R06.02 Shortness of breath; F17.210 Nicotine dependence, cigarettes, uncomplicated
CPT/HCPCS: 0241U; 71046; 99284; J8540